=== PATIENT | male | born 1965 | race Caucasian/White ===

== ENCOUNTER 2017-09-15 19:34 | Inpatient (IN) | payer OTHER ==
[~2017-09-15] VITALS: Ht 177.8 cm; Wt 68.9 kg
--- NOTE | 2017-09-15 19:37 | NUR ---
PT BBRA WITH C/C OF LOW SPO2 OF 88%. AAOX0. GCS SCORE OF 11. PT GOWNED AND PLACED ON MONITOR AND POX. RESP EVEN. PT TRACHED AND ON 5L O2. NO S/S OF ACUTE DISTRESS NOTED. NO SKIN BREAKDOWNS NOTED. NO OBVIOUS CRACKLES AUSCULATED. PT SPO2 100%. SKIN DAMP AND WARM TO TOUCH. AWAITING MD FOR EVAL.
--- NOTE | 2017-09-15 19:50 | NUR ---
EMT BEDSIDE FOR EKG
--- NOTE | 2017-09-15 19:50 | NUR ---
TUMBLER DYEING MACHINE OPERATOR BEDSIDE FOR BLOOD SPECIMEN COLLECTION.
[2017-09-15 19:59] LABS: BASOPHILS % (AUTO) 0.1 % (0.0-2.0); EOSINOPHILS # (AUTO) 0.1 /CMM (0.0-0.7); EOSINOPHILS % (AUTO) 0.4 % (0.0-6.0); HEMATOCRIT 32 % (33-45); HEMOGLOBIN 10.8 g/dL (11.5-14.8); LYMPHOCYTES # (AUTO) 1.5 /CMM (0.8-4.8); LYMPHOCYTES % (AUTO) 8.7 % (20.0-44.0); MEAN CORPUSCULAR HEMOGLOBIN 31 PG (26.0-33.0); MEAN CORPUSCULAR HGB CONC 33 g/dl (31.0-36.0); MEAN CORPUSCULAR VOLUME 93 fL (82-100); MONOCYTES # (AUTO) 0.6 /CMM (0.1-1.30); MONOCYTES % (AUTO) 3.3 % (2.0-12.0); NEUTROPHILS # (AUTO) 15.1 /CMM (1.8-8.9); NEUTROPHILS % (AUTO) 87.5 % (43.0-81.0); PLATELET COUNT (AUTO) 463 /CMM (150-450); RDW COEFFICIENT OF VARIATION 14.4 (11.5-15.0); RED BLOOD CELL COUNT(AUTO) 3.46 MIL/uL (4.0-5.2); WHITE BLOOD COUNT (AUTO) 17.3 K/uL (4.3-11.0)
[2017-09-15 20:22] LABS: ALBUMIN 1.6 g/dL (3.4-5.0); BILIRUBIN,DIRECT 0.2 mg/dL (0.0-0.2); BILIRUBIN,TOTAL 0.4 mg/dL (0.2-1.0); CALCIUM, SERUM 8.3 mg/dL (8.5-10.1); POTASSIUM 4.5 mmol/L (3.5-5.1); TOTAL PROTEIN, SERUM 7.6 g/dL (6.4-8.2)
[2017-09-15 20:24] LABS: TROPONIN I 0.162 ng/mL (0.00-0.056)
[2017-09-15 20:37] LABS: INR 0.97 (0.85-1.15)
[2017-09-15 20:39] LABS: APPEARANCE,URINE Cloudy (CLEAR); BILIRUBIN,URINE Negative (NEGATIVE); BLOOD, URINE Moderate Ery/uL (NEGATIVE); COLOR,URINE Yellow (YELLOW); KETONES,URINE Negative (NEGATIVE); LEUKOCYTE ESTERASE ,URINE Large (NEGATIVE); NITRITE, URINE Positive (NEGATIVE); PH,URINE 8.5 (5.0-8.0); PROTEIN,URINE 100 mg/dl (NEGATIVE); UGLUCOSE Negative (NEGATIVE); UROBILINOGEN,URINE 0.2 EU/dL (0.2)
[2017-09-15 20:50] LABS: RBC,URINE TOO NUMEROUS TO COUN /HPF (0-2)
[2017-09-15 20:51] LABS: BACTERIA,URINE Many /HPF (None Seen); SQUAMOUS EPITHELIAL CELL,UR Rare /HPF (None Seen); URINE AMORPHOUS URATE Moderate /HPF (None Seen); WBC,URINE TOO NUMEROUS TO COUN /HPF (0-3)
--- NOTE | 2017-09-15 21:00 | NUR ---
Patient is resting comfortably in bed with eyes closed. Easily aroused. VSS
[2017-09-15] MEDS ORDERED: PIPERACILLIN /TAZOBACTAM 2.25 G in IV D5W 50 ML IV ONE (21:30)
[2017-09-15] MEDS ORDERED: ASPIRIN 81 MG TAB.CHEW NG ONE (21:30)
[2017-09-15] MEDS ORDERED: IV NS 0.9% 1,000 ML BAG IV ONE (21:30)
[2017-09-15] MEDS ORDERED: PIPERACILLIN /TAZOBACTAM 2.25 G VIAL IV ONE (21:41)
--- NOTE | 2017-09-15 22:10 | NUR ---
Patient is resting comfortably in bed with eyes closed. Easily aroused. VSS
[2017-09-15] MEDS ORDERED: GABA-532 GT (22:59)
[2017-09-15] MEDS ORDERED: ESCI10TA GT (22:59)
[2017-09-15] MEDS ORDERED: CLON1PAT12 TD (22:59)
[2017-09-15] MEDS ORDERED: MULT-594 GT (22:59)
[2017-09-15] MEDS ORDERED: LABE100T GT (22:59)
[2017-09-15] MEDS ORDERED: DOCU100C36 GT (22:59)
[2017-09-15] MEDS ORDERED: ATOR80TA GT (22:59)
[2017-09-15] MEDS ORDERED: BROM5CAP3 GT (22:59)
[2017-09-15] MEDS ORDERED: LISI10TA5 GT (22:59)
[2017-09-15] MEDS ORDERED: ASCO250T7 GT (22:59)
[2017-09-15] MEDS ORDERED: AMLO10TA2 PO (22:59)
[2017-09-15] MEDS ORDERED: PANT40TA4 GT (22:59)
[2017-09-15] MEDS ORDERED: CLON0.1T GT (22:59)
--- NOTE | 2017-09-15 23:00 | NUR ---
RN NOTE RECEIVED REPORT FROM BROOKE RN FOR CONTINUITY OF CARE.
--- NOTE | 2017-09-15 23:25 | NUR ---
GAVE REPORT TO EDELMIRA ELIE HERRERA FOR OSMANY.
--- NOTE | 2017-09-15 23:30 | NUR ---
PT TRANSFERRED PER ACLS PROTOCOL WITH LASHANDA.
--- NOTE | 2017-09-15 23:40 | NUR ---
RN NOTE RECEVIED PT IN NO ACUTE DISTRESS IN BED. PT IS NON VERBAL, BUT OPENS EYES. PT IS ON O2 VIA TRACH @ 5LPM COOL AEROSOL. PT IS NOT SHOWING ANY S/S OF SOB, DIFFICULTY BREATHING OR PAIN AT THIS TIME. PT IS ON TELE WITH SR ON THE MONITOR. PT HAS GTUBE THAT IS CLEAN DRY INTACT AND PATENT WITH FREE WATER FLUSH. PT HAS F/C THAT IS CLEAN DRY INTACT AND PATENT WITH CLEAR YELLOW URINE DRAINING. PT HAS LAC 18G THAT IS CLEAN DRY INTACT AND PATENT WITH NS FLUSH. ALL NEEDS MET, ALL ORDERS CARRIED OUT. WILL CONTINUE TO MONITOR PT.
[2017-09-16] VITALS (7 sets, daily range): BP systolic 92–112; BP diastolic 49–67
[2017-09-16] MEDS ORDERED: MORPHINE SULFATE INJ 2 MG/ML DISP.SYRIN IV PRN
[2017-09-16] MEDS ORDERED: ACETAMINOPHEN 650 MG/20 ML UDC- FOR SA PATIENTS ONLY GT PRN
--- NOTE | 2017-09-16 00:35 | NUR ---
PLACED PT ON CA 28% 5L, NO RESPIRATORY DISTRESS AT THIS TIME. ELIE HERRERA NOTIFIED
--- NOTE | 2017-09-16 00:44 | NUR ---
SPOKE TO MD MARTINEZ, AWARE OF NA LEVEL 155, WITH ORDER TO CONTINUE IVF NS @ 100ml/hr.
[2017-09-16] MEDS ORDERED: HEPA100I3 IV/SQ (00:54)
[2017-09-16] MEDS ORDERED: IV NS 0.9% 1,000 ML IV PRN (01:00)
[2017-09-16] MEDS ORDERED: RENAL NOVASOURCE 1,000 ML BOTTLE GT PRN (01:30)
[2017-09-16] MEDS ORDERED: VANCOMYCIN 1 GM in IV D5W 250 ML IV ONE (02:30)
[2017-09-16] MEDS ORDERED: VANCOMYCIN 1 GM VIAL ONE (03:07)
[2017-09-16] MEDS ORDERED: PIPERACILLIN /TAZOBACTAM 2.25 G VIAL IV ONE (05:04)
[2017-09-16] MEDS: GABAPENTIN 100 MG CAPSULE GT SCH ×3 (05:20→21:33)
[2017-09-16] MEDS: PIPERACILLIN /TAZOBACTAM 2.25 G in IV D5W 50 ML IV SCH ×6 (05:20→23:01)
--- NOTE | 2017-09-16 07:00 | NUR ---
OPENING RECEIVE PT ON BED, NONVERBAL , EYES ARE OPEN, TRACH DEPENDENT, TRACH CARE DONE, ON 28% FIO2 , RESPIRATION EVEN AND UNLABORED, ON TELE SR HR IN 60'S , KING DRAINING TO GRAVITY, WITH YELLOW URINE , NS AT 100CC/HR RUNNING VIA L AC G 18 , SITE CDI, TUBE FEEDING NOVASOURCE AT 50CC/HR RUNNING VIA G-TUBE, TOLERATING WELL, SR UP X3, CALL LIGHTS WITHIN EASY REACH, BED LOCKED AND IN LOWEST POSITION , WILL CONTINUE TO MONITOR .
[2017-09-16 07:14] LABS: BASOPHILS % (AUTO) 0.2 % (0.0-2.0); EOSINOPHILS # (AUTO) 0.1 /CMM (0.0-0.7); EOSINOPHILS % (AUTO) 0.3 % (0.0-6.0); HEMATOCRIT 24 % (39-51); HEMOGLOBIN 8.2 g/dL (13.5-17.5); LYMPHOCYTES # (AUTO) 2.1 /CMM (0.8-4.8); LYMPHOCYTES % (AUTO) 11.1 % (20.0-44.0); MEAN CORPUSCULAR HEMOGLOBIN 32 PG (26.0-33.0); MEAN CORPUSCULAR HGB CONC 34 g/dl (31.0-36.0); MEAN CORPUSCULAR VOLUME 95 fL (80-96); MONOCYTES # (AUTO) 0.5 /CMM (0.1-1.30); MONOCYTES % (AUTO) 2.7 % (2.0-12.0); NEUTROPHILS # (AUTO) 16.2 /CMM (1.8-8.9); NEUTROPHILS % (AUTO) 85.7 % (43.0-81.0); PLATELET COUNT (AUTO) 352 /CMM (150-450); RDW COEFFICIENT OF VARIATION 15.3 (11.5-15.0); RED BLOOD CELL COUNT(AUTO) 2.55 MIL/uL (4.5-6.0)
[2017-09-16 07:20] LABS: BILIRUBIN,TOTAL 0.7 mg/dL (0.2-1.0); CALCIUM, SERUM 8.4 mg/dL (8.5-10.1); CREATININE 1.9 mg/dL (0.6-1.3); MAGNESIUM 2.8 mg/dL (1.8-2.4); PHOSPHORUS 3.8 mg/dL (2.5-4.9); POTASSIUM 4.4 mmol/L (3.5-5.1); TOTAL PROTEIN, SERUM 6.5 g/dL (6.4-8.2)
--- NOTE | 2017-09-16 07:21 | NUR ---
PT REMAINS IN NO ACUTE DISTRESS IN BED. PT DID NOT HAVE ANY SIGNIFICANT CHANGE IN CONDITION DURING SHIFT. ALL NEEDS MET, ALL ORDERS CARRIED OUT. WILL ENDORSE CARE TO AM RN FOR CONTINUITY OF CARE.
[2017-09-16 07:23] LABS: TROPONIN I 0.111 ng/mL (0.00-0.056)
[2017-09-16 07:28] LABS: ALBUMIN 1.4 g/dL (3.4-5.0); THYROID STIMULATING HORMONE 0.935 uIU/mL (0.358-3.74)
[2017-09-16] MEDS: ESCITALOPRAM OXALATE (10 MG) 10 MG TABLET GT SCH (08:15)
[2017-09-16] MEDS: BROMOCRIPTINE MESYLATE (2.5MG) 2.5 MG TABLET GT SCH ×2 (08:15→16:59)
[2017-09-16] MEDS: ASCORBIC ACID 500 MG TABLET GT SCH ×2 (08:16→16:59)
[2017-09-16] MEDS: PANTOPRAZOLE 40 MG/PACK PACK GT SCH (08:17)
[2017-09-16] MEDS: MULTIVITAMINS,THERAGRAN 1 UDTAB TABLET GT SCH (08:17)
[2017-09-16] MEDS: DOCUSATE SODIUM 100 MG CAPSULE PO SCH ×2 (08:18→16:58)
[2017-09-16] MEDS ORDERED: FEE PK DOSING 1 MIN EA MC ONE (08:37)
--- NOTE | 2017-09-16 09:30 | NUR ---
RN NOTES DR VIVEROS NOTIFIED REGARDING NA= [id number]
[2017-09-16] MEDS ORDERED: IV D5/0.45 NACL 1,000 ML IV ONE (11:30)
[2017-09-16] MEDS: ALBUMIN 25% 25 GM in PREMIX 1 EA IV SCH ×2 (13:07→22:36)
[2017-09-16 13:17] LABS: CALCIUM, SERUM 8.1 mg/dL (8.5-10.1); CREATININE 1.8 mg/dL (0.6-1.3); POTASSIUM 4.3 mmol/L (3.5-5.1)
--- NOTE | 2017-09-16 13:20 | NUR ---
RN NOTES DR CONTRERAS NOTIFIED REGARDING EH=[id number] AND BUN=[id number]
[2017-09-16] MEDS: VANCOMYCIN 0.75 GM in IV D5W 250 ML IV SCH (14:30)
[2017-09-16 14:34] LABS: CREATININE, URINE 57.9 MG/DL (30.0-125.0); URINE TOTAL PROTEIN 83.8 mg/dL (0-11.9)
[2017-09-16 15:00] LABS: APPEARANCE,URINE SL CLOUDY (CLEAR); BILIRUBIN,URINE NEGATIVE (NEGATIVE); BLOOD, URINE 2+ Ery/uL (NEGATIVE); COLOR,URINE YELLOW (YELLOW); KETONES,URINE NEGATIVE (NEGATIVE); LEUKOCYTE ESTERASE ,URINE 3+ (NEGATIVE); NITRITE, URINE NEGATIVE (NEGATIVE); PROTEIN,URINE 1+ mg/dl (NEGATIVE); UGLUCOSE NEGATIVE (NEGATIVE); UROBILINOGEN,URINE 0.2 EU/dL (0.2)
[2017-09-16 15:14] LABS: BACTERIA,URINE Few /HPF (None Seen); SQUAMOUS EPITHELIAL CELL,UR Rare /HPF (None Seen)
--- NOTE | 2017-09-16 15:35 | NUR ---
RN NOTES DR CONTRERAS NOTIFIED REGARDING SERUM OSMO 358 AND URINE OSMO 554 .
[2017-09-16 15:50] LABS: EOSINOPHIL,URINE None Seen
--- NOTE | 2017-09-16 16:45 | NUR ---
patient is trach and G-tube dependent. Spoke with Miryam- admin @ [facility] confirmed patient resides at the [facility] [phone]. He is non-verbal,dependent with adl's. Plan is to return to the [facility] upon discharge. Addendum: 09/16/17 at 1646 by BEATA ARTEAGA RN Amended: Links added.
--- NOTE | 2017-09-16 18:00 | NUR ---
CLOSING NOTE PT REMAIN IN BED ON TRACH COLLAR AT 28 % ,RESPIRATION EVEN NO DISTRESS. PT ON FEEDINGS NOVASOURCE NO RESIDUAL AT 55 MLS. LAC 18 G INFUSING D5 1/2 NS AT 50 MLS SITE INTACT CLEAN AND DRY. WILL ENDORSE CONTINUITY OF CARE TO NEXT SHIFT NURSE
[2017-09-16] MEDS: ATORVASTATIN 40 MG TABLET GT SCH (21:33)
[2017-09-17] VITALS (8 sets, daily range): BP systolic 97–144; BP diastolic 56–77
[2017-09-17] MEDS: VANCOMYCIN 0.75 GM in IV D5W 250 ML IV SCH (02:52)
[2017-09-17] MEDS: RENAL NOVASOURCE 1,000 ML BOTTLE GT PRN (04:03)
[2017-09-17] MEDS: GABAPENTIN 100 MG CAPSULE GT SCH ×3 (04:04→21:53)
[2017-09-17] MEDS: PIPERACILLIN /TAZOBACTAM 2.25 G in IV D5W 50 ML IV SCH (05:02)
[2017-09-17 07:18] LABS: BASOPHILS % (AUTO) 0.2 % (0.0-2.0); EOSINOPHILS # (AUTO) 0.2 /CMM (0.0-0.7); EOSINOPHILS % (AUTO) 1.5 % (0.0-6.0); HEMATOCRIT 23 % (39-51); HEMOGLOBIN 7.9 g/dL (13.5-17.5); LYMPHOCYTES # (AUTO) 1.2 /CMM (0.8-4.8); LYMPHOCYTES % (AUTO) 10.6 % (20.0-44.0); MEAN CORPUSCULAR HEMOGLOBIN 32 PG (26.0-33.0); MEAN CORPUSCULAR HGB CONC 34 g/dl (31.0-36.0); MEAN CORPUSCULAR VOLUME 95 fL (80-96); MONOCYTES # (AUTO) 0.3 /CMM (0.1-1.30); MONOCYTES % (AUTO) 2.4 % (2.0-12.0); NEUTROPHILS % (AUTO) 85.3 % (43.0-81.0); PLATELET COUNT (AUTO) 292 /CMM (150-450); RDW COEFFICIENT OF VARIATION 14.9 (11.5-15.0); RED BLOOD CELL COUNT(AUTO) 2.47 MIL/uL (4.5-6.0); WHITE BLOOD COUNT (AUTO) 11.8 K/uL (4.3-11.0)
[2017-09-17 08:39] LABS: ALBUMIN 1.8 g/dL (3.4-5.0); BILIRUBIN,TOTAL 0.4 mg/dL (0.2-1.0); CALCIUM, SERUM 8.3 mg/dL (8.5-10.1); CREATININE 1.6 mg/dL (0.6-1.3); MAGNESIUM 2.6 mg/dL (1.8-2.4); PHOSPHORUS 2.7 mg/dL (2.5-4.9); TOTAL PROTEIN, SERUM 6.1 g/dL (6.4-8.2)
[2017-09-17] MEDS: PANTOPRAZOLE 40 MG/PACK PACK GT SCH (09:30)
[2017-09-17] MEDS: MULTIVITAMINS,THERAGRAN 1 UDTAB TABLET GT SCH (09:30)
[2017-09-17] MEDS: DOCUSATE SODIUM 100 MG CAPSULE PO SCH ×2 (09:30→17:41)
[2017-09-17] MEDS: ASCORBIC ACID 500 MG TABLET GT SCH ×2 (09:31→17:41)
[2017-09-17] MEDS: ESCITALOPRAM OXALATE (10 MG) 10 MG TABLET GT SCH (09:31)
[2017-09-17] MEDS: BROMOCRIPTINE MESYLATE (2.5MG) 2.5 MG TABLET GT SCH ×2 (09:31→17:40)
[2017-09-17] MEDS: CADEXOMER IODINE 40 GM TUBE TP SCH (09:32)
[2017-09-17 10:11] LABS: CREATINE KINASE MB 3.6 ng/mL (0-3.6)
[2017-09-17] MEDS: ACETAMINOPHEN 650 MG/20.3 ML UDC GT PRN (12:26)
[2017-09-17] MEDS: MEROPENEM 1 G in IV NS 0.9% 100 ML IV SCH (14:12)
[2017-09-17] MEDS ORDERED: IV D5W 1,000 ML IV STA (16:30)
[2017-09-17 17:37] LABS: CALCIUM, SERUM 8.1 mg/dL (8.5-10.1); CREATININE 1.6 mg/dL (0.6-1.3); POTASSIUM 3.8 mmol/L (3.5-5.1)
[2017-09-17] MEDS ORDERED: Z GUARD REMEDY 2 OZ OINT TP PRN (18:30)
--- NOTE | 2017-09-17 19:30 | NUR ---
ROTARY DRILL OPERATOR HELPER INITIAL NOTE PT RECEIVED ASLEEP BUT EASILY AROUSABLE TO NAME. OPENS EYES AND TRACKS. TRACH IN PLACE AND CLEAN. ON COOL AEROSOL WITH FIO2 AT 28% AND TOLERATING WELL. NO DISTRESS NOTED. TELE- SR 75. GTUBE FEEDING WITHOUT RESIDUALS NOTED. HOB ELEVATED AND ON ASPIRATION PRECAUTIONS. IV LAC CLEAN, DRY, PATENT WITH FLUIDS INFUSING. KING CATHETER IN PLACE AND DRAINING BY GRAVITY. WILL CONTINUE TO MONITOR.
[2017-09-17] MEDS: ATORVASTATIN 40 MG TABLET GT SCH (21:52)
[2017-09-18] VITALS: BP 137/85
[2017-09-18] MEDS: MEROPENEM 1 G in IV NS 0.9% 100 ML IV SCH ×3 (00:22→21:33)
[2017-09-18] MEDS: RENAL NOVASOURCE 1,000 ML BOTTLE GT PRN (01:11)
[2017-09-18 01:36] LABS: CALCIUM, SERUM 8.2 mg/dL (8.5-10.1); CREATININE 1.3 mg/dL (0.6-1.3)
[2017-09-18 04:00] VITALS: BP 130/78
[2017-09-18] MEDS: GABAPENTIN 100 MG CAPSULE GT SCH ×3 (04:40→21:30)
[2017-09-18 06:29] LABS: CREATININE 1.2 mg/dL (0.6-1.3)
--- NOTE | 2017-09-18 07:05 | NUR ---
WOUND CARE CONSULT WOUND CARE RECEIVED CONSULT FOR MULTIPLE WOUND AND SACRAL WOUND TREATMENT. WOUND CARE WILL DEFER CONSULT AND ALL TREATMENT PLANS TO SURGICAL TEAM AT THIS TIME. PATIENT WITH CURRENT LEVI AT 10, ALL PRESSURE ULCER PREVENTION MEASURES NOTED TO BE IN PLACE.
[2017-09-18] MEDS: PANTOPRAZOLE 40 MG/PACK PACK GT SCH (07:30)
[2017-09-18] MEDS ORDERED: HYDROGEL DRESSING 90 GM TUBE TP PRN (07:30)
--- NOTE | 2017-09-18 07:40 | NUR ---
ADMINISTRATIVE PROCESSOR CLOSING NOTE PT REMAINED STABLE DURING SHIFT. NO ACUTE DISTRESS NOTED. SEEN BY WOUND WITH NEW ORDERS TO OBTAIN CONSENT FOR EXCISIONAL SACRAL DEBRIDEMENT AND TREATMENT ORDERS. LAB CALLED WITH CRITICAL LAB SODIUM 161. ALL NEEDS ATTENDED TO PROMPTLY. KEPT CLEAN AND DRY. REPOSITIONED Q2H. HOB REMAINED ELEVATED. ISOLATION PRECAUTIONS OBSERVED. WILL ENDORSE TO NEXT SHIFT FOR CONTINUITY OF CARE.
--- NOTE | 2017-09-18 07:49 | NUR ---
RN NOTES RECEIVED PT IN STABLE CONDITION, TRACH, ON COOL AEROSOL, NO SOB OR DISTRESS NOTED. OPENS EYES ABLE TO TRACK. SR ON THE TELE RAFFY HR 88. GTF AT 50ML/HR. LAC 18G, LHAND 22G IV SITE INTACT WITH IVF AT 50ML/HR. BED LOCKED AND IN LOWEST POSITION, CALL LIGHT WITHIN REACH, WILL CONT TO RAFFY.
[2017-09-18 08:00] VITALS: BP 138/80
[2017-09-18] MEDS: DOCUSATE SODIUM 100 MG CAPSULE PO SCH ×2 (09:14→17:00)
[2017-09-18] MEDS: MULTIVITAMINS,THERAGRAN 1 UDTAB TABLET GT SCH (09:14)
[2017-09-18] MEDS: BROMOCRIPTINE MESYLATE (2.5MG) 2.5 MG TABLET GT SCH ×2 (09:14→17:00)
[2017-09-18] MEDS: ESCITALOPRAM OXALATE (10 MG) 10 MG TABLET GT SCH (09:14)
[2017-09-18] MEDS: ASCORBIC ACID 500 MG TABLET GT SCH ×2 (09:14→17:00)
[2017-09-18] MEDS: CADEXOMER IODINE 40 GM TUBE TP SCH (09:15)
[2017-09-18] MEDS: HYDROGEL DRESSING 90 GM TUBE TP SCH (09:15)
[2017-09-18] MEDS: DAKINS QUARTER STRENGTH (0.125%) 480 ML BOTTLE TOP SCH (09:15)
[2017-09-18 12:00] VITALS: BP 138/91
[2017-09-18 16:00] VITALS: BP 134/91
[2017-09-18 17:34] LABS: CALCIUM, SERUM 8.5 mg/dL (8.5-10.1); CREATININE 1.2 mg/dL (0.6-1.3); POTASSIUM 4.3 mmol/L (3.5-5.1)
--- NOTE | 2017-09-18 19:56 | NUR ---
PARTITION MAKING MACHINE OPERATOR INITIAL NOTES RECEIVED PT IN STABLE CONDITION, TRACH, ON COOL AEROSOL, NO SOB OR DISTRESS NOTED. OPENS EYES ABLE TO TRACK. SR ON THE TELE RAFFY HR 80. GTF AT 50ML/HR. LAC 18G, LHAND 22G IV SITE INTACT WITH IVF AT 50ML/HR. BED LOCKED AND IN LOWEST POSITION, CALL LIGHT WITHIN REACH, WILL CONT TO RAFFY.
[2017-09-18 20:00] VITALS: BP 144/78
[2017-09-18] MEDS: ATORVASTATIN 40 MG TABLET GT SCH (21:30)
[2017-09-19] VITALS: BP 129/76
[2017-09-19] MEDS: RENAL NOVASOURCE 1,000 ML BOTTLE GT PRN ×2 (00:31→16:23)
[2017-09-19 04:00] VITALS: BP 146/90
[2017-09-19] MEDS: GABAPENTIN 100 MG CAPSULE GT SCH ×3 (04:58→21:35)
[2017-09-19] MEDS: MEROPENEM 1 G in IV NS 0.9% 100 ML IV SCH ×3 (04:58→21:36)
[2017-09-19 05:15] LABS: *SPE A/G RATIO 0.6 (0.7-1.7); *SPE ALBUMIN 2.1 g/dL (2.9-4.4); *SPE ALPHA-1-GLOBULIN 0.2 g/dL (0.0-0.4); *SPE ALPHA-2-GLOBULIN 1.2 g/dL (0.4-1.0); *SPE GLOBULIN, TOTAL 3.6 g/dL (2.2-3.9); *SPE M-SPIKE Not Observed g/dL (Not Observed); *SPEGAMMA GLOBULIN 1.2 g/dL (0.4-1.8)
--- NOTE | 2017-09-19 06:51 | NUR ---
DOMESTIC MAID CLOSING NOTES ENDORSED PT IN STABLE CONDITION, TRACH, ON COOL AEROSOL, NO SOB OR DISTRESS NOTED. OPENS EYES ABLE TO TRACK. SR ON THE TELE RAFFY HR 90. GTF AT 50ML/HR. LAC 18G, LHAND 22G IV SITE INTACT WITH IVF AT 50ML/HR. BED LOCKED AND IN LOWEST POSITION, CALL LIGHT WITHIN REACH, WILL CONT TO RAFFY.
[2017-09-19 07:39] LABS: EOSINOPHILS # (AUTO) 0.1 /CMM (0.0-0.7); HEMATOCRIT 29 % (39-51); HEMOGLOBIN 9.9 g/dL (13.5-17.5); LYMPHOCYTES # (AUTO) 1.3 /CMM (0.8-4.8); LYMPHOCYTES % (AUTO) 10.6 % (20.0-44.0); MEAN CORPUSCULAR HEMOGLOBIN 32 PG (26.0-33.0); MEAN CORPUSCULAR HGB CONC 34 g/dl (31.0-36.0); MEAN CORPUSCULAR VOLUME 95 fL (80-96); MONOCYTES # (AUTO) 0.3 /CMM (0.1-1.30); MONOCYTES % (AUTO) 2.6 % (2.0-12.0); NEUTROPHILS # (AUTO) 10.5 /CMM (1.8-8.9); NEUTROPHILS % (AUTO) 85.8 % (43.0-81.0); PLATELET COUNT (AUTO) 332 /CMM (150-450); RDW COEFFICIENT OF VARIATION 15.1 (11.5-15.0); RED BLOOD CELL COUNT(AUTO) 3.08 MIL/uL (4.5-6.0); WHITE BLOOD COUNT (AUTO) 12.2 K/uL (4.3-11.0)
[2017-09-19 07:54] LABS: CALCIUM, SERUM 8.5 mg/dL (8.5-10.1); CREATININE 1.2 mg/dL (0.6-1.3); MAGNESIUM 2.5 mg/dL (1.8-2.4); PHOSPHORUS 2.9 mg/dL (2.5-4.9); POTASSIUM 4.6 mmol/L (3.5-5.1)
[2017-09-19 08:00] VITALS: BP_SYST 108; BP_SYST 147; BP_DIAS 64; BP_DIAS 89
[2017-09-19] MEDS: DOCUSATE SODIUM 100 MG CAPSULE PO SCH ×2 (08:04→16:17)
[2017-09-19] MEDS: PANTOPRAZOLE 40 MG/PACK PACK GT SCH (08:04)
[2017-09-19] MEDS: BROMOCRIPTINE MESYLATE (2.5MG) 2.5 MG TABLET GT SCH ×2 (08:04→16:17)
[2017-09-19] MEDS: ACETAMINOPHEN 650 MG/20.3 ML UDC GT PRN (08:04)
[2017-09-19] MEDS: ASCORBIC ACID 500 MG TABLET GT SCH ×2 (08:04→16:16)
[2017-09-19] MEDS: ESCITALOPRAM OXALATE (10 MG) 10 MG TABLET GT SCH (08:04)
[2017-09-19] MEDS: MULTIVITAMINS,THERAGRAN 1 UDTAB TABLET GT SCH (08:04)
[2017-09-19] MEDS: HYDROGEL DRESSING 90 GM TUBE TP SCH (08:05)
[2017-09-19] MEDS: DAKINS QUARTER STRENGTH (0.125%) 480 ML BOTTLE TOP SCH (08:06)
[2017-09-19] MEDS: CADEXOMER IODINE 40 GM TUBE TP SCH (08:06)
[2017-09-19 12:00] VITALS: BP 130/74
[2017-09-19 14:23] LABS: PTH, INTACT 70 pg/mL (15-65)
[2017-09-19] MEDS: IV D5/0.45 NACL 1,000 ML IV PRN (15:05)
[2017-09-19 16:00] VITALS: BP 127/79
[2017-09-19 20:00] VITALS: BP 130/81
--- NOTE | 2017-09-19 20:05 | NUR ---
SUPPLY CHAIN PROJECT MANAGER INITIAL NOTES RECEIVED PT IN STABLE CONDITION, TRACH, ON COOL AEROSOL, NO SOB OR DISTRESS NOTED. OPENS EYES ABLE TO TRACK. SR ON THE TELE RAFFY HR 80. GTF AT 50ML/HR. LAC 18G, LHAND 22G IV SITE INTACT WITH IVF AT D5 1/2 NACL @ 100ML/HR. BED LOCKED AND IN LOWEST POSITION, CALL LIGHT WITHIN REACH, WILL CONT TO RAFFY.
[2017-09-19] MEDS: ATORVASTATIN 40 MG TABLET GT SCH (21:36)
[2017-09-20] VITALS: BP 109/45
[2017-09-20] MEDS: IV D5/0.45 NACL 1,000 ML IV PRN ×2 (01:37→19:40)
[2017-09-20 04:00] VITALS: BP 130/57
[2017-09-20] MEDS: MEROPENEM 1 G in IV NS 0.9% 100 ML IV SCH ×2 (04:45→14:32)
[2017-09-20] MEDS: GABAPENTIN 100 MG CAPSULE GT SCH ×3 (04:46→21:59)
--- NOTE | 2017-09-20 06:19 | NUR ---
PERFORMING ARTS TECHNICIANS CLOSING NOTES ENDORSED PT IN STABLE CONDITION, TRACH, ON COOL AEROSOL, NO SOB OR DISTRESS NOTED. OPENS EYES ABLE TO TRACK. SR ON THE TELE RAFFY HR 97. GTF AT 50ML/HR. LAC 18G, LHAND 22G IV SITE INTACT WITH IVF AT D5 1/2 NACL @ 100ML/HR. BED LOCKED AND IN LOWEST POSITION, CALL LIGHT WITHIN REACH, WILL CONT TO RAFFY.
[2017-09-20 07:17] LABS: BASOPHILS % (AUTO) 0.1 % (0.0-2.0); EOSINOPHILS # (AUTO) 0.2 /CMM (0.0-0.7); EOSINOPHILS % (AUTO) 1.3 % (0.0-6.0); HEMATOCRIT 27 % (39-51); HEMOGLOBIN 9.1 g/dL (13.5-17.5); LYMPHOCYTES # (AUTO) 1.3 /CMM (0.8-4.8); LYMPHOCYTES % (AUTO) 10.1 % (20.0-44.0); MEAN CORPUSCULAR HEMOGLOBIN 32 PG (26.0-33.0); MEAN CORPUSCULAR HGB CONC 33 g/dl (31.0-36.0); MEAN CORPUSCULAR VOLUME 95 fL (80-96); MONOCYTES # (AUTO) 0.3 /CMM (0.1-1.30); MONOCYTES % (AUTO) 2.1 % (2.0-12.0); NEUTROPHILS # (AUTO) 10.9 /CMM (1.8-8.9); NEUTROPHILS % (AUTO) 86.4 % (43.0-81.0); PLATELET COUNT (AUTO) 318 /CMM (150-450); RED BLOOD CELL COUNT(AUTO) 2.87 MIL/uL (4.5-6.0); WHITE BLOOD COUNT (AUTO) 12.7 K/uL (4.3-11.0)
--- NOTE | 2017-09-20 07:30 | NUR ---
MONITORING ANALYST INITIAL NOTES RECEIVED PT IN STABLE CONDITION, TRACH, ON COOL AEROSOL, NO SOB OR DISTRESS NOTED. OPENS EYES ABLE TO TRACK. SR ON THE TELE RAFFY HR 80. GTF AT 50ML/HR. LAC 18G, LHAND 22G IV SITE INTACT WITH IVF AT D5 1/2 NACL @ 100ML/HR. BED LOCKED AND IN LOWEST POSITION, CALL LIGHT WITHIN REACH, WILL CONT TO RAFFY.
[2017-09-20 07:48] LABS: CALCIUM, SERUM 8.2 mg/dL (8.5-10.1); CREATININE 1.1 mg/dL (0.6-1.3); MAGNESIUM 2.2 mg/dL (1.8-2.4); PHOSPHORUS 2.7 mg/dL (2.5-4.9)
[2017-09-20 07:58] LABS: POTASSIUM 4.3 mmol/L (3.5-5.1)
[2017-09-20 08:00] VITALS: BP_SYST 113; BP_SYST 131; BP_DIAS 74; BP_DIAS 86
[2017-09-20] MEDS: MULTIVITAMINS,THERAGRAN 1 UDTAB TABLET GT SCH (08:59)
[2017-09-20] MEDS: ASCORBIC ACID 500 MG TABLET GT SCH ×2 (08:59→17:43)
[2017-09-20] MEDS: ESCITALOPRAM OXALATE (10 MG) 10 MG TABLET GT SCH (08:59)
[2017-09-20] MEDS: PANTOPRAZOLE 40 MG/PACK PACK GT SCH (08:59)
[2017-09-20] MEDS: DAKINS QUARTER STRENGTH (0.125%) 480 ML BOTTLE TOP SCH (09:00)
[2017-09-20] MEDS: CADEXOMER IODINE 40 GM TUBE TP SCH (09:00)
[2017-09-20] MEDS: DOCUSATE SODIUM 100 MG CAPSULE PO SCH ×2 (09:00→17:43)
[2017-09-20] MEDS: HYDROGEL DRESSING 90 GM TUBE TP SCH (09:00)
[2017-09-20] MEDS: BROMOCRIPTINE MESYLATE (2.5MG) 2.5 MG TABLET GT SCH ×2 (09:08→17:43)
[2017-09-20 12:00] VITALS: BP 109/72
[2017-09-20 16:00] VITALS: BP 131/86
[2017-09-20] MEDS: RENAL NOVASOURCE 1,000 ML BOTTLE GT PRN (19:35)
[2017-09-20 20:00] VITALS: BP 115/71
[2017-09-20] MEDS: ATORVASTATIN 40 MG TABLET GT SCH (21:59)
[2017-09-20] MEDS: ACETAMINOPHEN 650 MG/20.3 ML UDC GT PRN (21:59)
[2017-09-20] MEDS: CEFEPIME 2 GM in IV D5W 100 ML IV SCH (22:00)
[2017-09-21] VITALS: BP 110/63
[2017-09-21 04:00] VITALS: BP 125/82
[2017-09-21] MEDS: CEFEPIME 2 GM in IV D5W 100 ML IV SCH ×2 (05:27→12:35)
[2017-09-21] MEDS: ACETAMINOPHEN 650 MG/20.3 ML UDC GT PRN (05:28)
[2017-09-21] MEDS: GABAPENTIN 100 MG CAPSULE GT SCH ×3 (05:28→22:02)
--- NOTE | 2017-09-21 07:05 | NUR ---
RN INITIAL NOTE PATIENT RECEIVED IN BED, PATIENT IS OBTUNDED, NON-VERBAL . SINUS RHYTHM ON TELE MONITOR. PATIENT HAS TRACH, PORTEX#7. ON COOL AEROSOL: FI02-28%, SATING WELL. NO S/S OF RESPIRATORY DISTRESS OR SOB. KING CATHETER DRAINING TO GRAVITY. GTUBE FLUSHED, PATENT. PLACEMENT CONFIRMED. TOLERATING FEEDING WELL. SKIN IS WARM AND DRY TO TOUCH. IV SITE FLUSHED, PATENT. SAFETY PRECAUTIONS IMPLEMENTED, BED IN LOCKED, LOW POSITION WITH TWO SIDE RAILS UP. CALL LIGHT AND BELONGINGS WITHIN EASY REACH. WILL CONTINUE TO MONITOR.
[2017-09-21 07:13] LABS: BASOPHILS % (AUTO) 0.3 % (0.0-2.0); EOSINOPHILS # (AUTO) 0.1 /CMM (0.0-0.7); EOSINOPHILS % (AUTO) 1.3 % (0.0-6.0); HEMATOCRIT 28 % (39-51); HEMOGLOBIN 9.2 g/dL (13.5-17.5); LYMPHOCYTES # (AUTO) 1.3 /CMM (0.8-4.8); LYMPHOCYTES % (AUTO) 11.6 % (20.0-44.0); MEAN CORPUSCULAR HEMOGLOBIN 32 PG (26.0-33.0); MEAN CORPUSCULAR HGB CONC 33 g/dl (31.0-36.0); MEAN CORPUSCULAR VOLUME 96 fL (80-96); MONOCYTES # (AUTO) 0.3 /CMM (0.1-1.30); MONOCYTES % (AUTO) 2.4 % (2.0-12.0); NEUTROPHILS # (AUTO) 9.4 /CMM (1.8-8.9); NEUTROPHILS % (AUTO) 84.4 % (43.0-81.0); PLATELET COUNT (AUTO) 266 /CMM (150-450); RDW COEFFICIENT OF VARIATION 14.9 (11.5-15.0); RED BLOOD CELL COUNT(AUTO) 2.89 MIL/uL (4.5-6.0); WHITE BLOOD COUNT (AUTO) 11.1 K/uL (4.3-11.0)
[2017-09-21 07:28] LABS: CALCIUM, SERUM 8.2 mg/dL (8.5-10.1); CREATININE 1.3 mg/dL (0.6-1.3); MAGNESIUM 2.2 mg/dL (1.8-2.4); PHOSPHORUS 2.8 mg/dL (2.5-4.9); POTASSIUM 4.3 mmol/L (3.5-5.1)
[2017-09-21] MEDS: IV D5/0.45 NACL 1,000 ML IV PRN ×2 (07:55→18:57)
[2017-09-21] MEDS: PANTOPRAZOLE 40 MG/PACK PACK GT SCH (07:55)
[2017-09-21 08:00] VITALS: BP 131/78
[2017-09-21] MEDS: ASCORBIC ACID 500 MG TABLET GT SCH ×2 (08:58→17:26)
[2017-09-21] MEDS: DOCUSATE SODIUM 100 MG CAPSULE PO SCH (08:59)
[2017-09-21] MEDS: DAKINS QUARTER STRENGTH (0.125%) 480 ML BOTTLE TOP SCH (08:59)
[2017-09-21] MEDS: ESCITALOPRAM OXALATE (10 MG) 10 MG TABLET GT SCH (08:59)
[2017-09-21] MEDS: CADEXOMER IODINE 40 GM TUBE TP SCH (08:59)
[2017-09-21] MEDS: BROMOCRIPTINE MESYLATE (2.5MG) 2.5 MG TABLET GT SCH ×2 (08:59→17:26)
[2017-09-21] MEDS: HYDROGEL DRESSING 90 GM TUBE TP SCH (08:59)
[2017-09-21] MEDS: MULTIVITAMINS,THERAGRAN 1 UDTAB TABLET GT SCH (08:59)
[2017-09-21 12:00] VITALS: BP 102/64
--- NOTE | 2017-09-21 14:00 | NUR ---
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
[2017-09-21 16:00] VITALS: BP 97/66
[2017-09-21] MEDS: DOCUSATE SODIUM LIQ 100 MG/10 ML UDC NG SCH (17:26)
[2017-09-21 17:48] LABS: APPEARANCE,URINE CLEAR (CLEAR); BILIRUBIN,URINE NEGATIVE (NEGATIVE); BLOOD, URINE 2+ Ery/uL (NEGATIVE); COLOR,URINE YELLOW (YELLOW); KETONES,URINE NEGATIVE (NEGATIVE); LEUKOCYTE ESTERASE ,URINE NEGATIVE (NEGATIVE); NITRITE, URINE NEGATIVE (NEGATIVE); PH,URINE 5.5 (5.0-8.0); PROTEIN,URINE 2+ mg/dl (NEGATIVE); UGLUCOSE NEGATIVE (NEGATIVE); UROBILINOGEN,URINE 0.2 EU/dL (0.2)
[2017-09-21 17:49] LABS: BACTERIA,URINE 1+ /HPF (None Seen); SQUAMOUS EPITHELIAL CELL,UR Rare /HPF (None Seen)
[2017-09-21] MEDS: PIPERACILLIN /TAZOBACTAM 3.375 G in IV D5W 50 ML IV SCH (18:58)
--- NOTE | 2017-09-21 19:59 | NUR ---
RN NOTE RECEIVED PATIENT IN THE BED, OBTUNDED, T-PIECE, ON COOL AEROSOL FIO2 28%, PORTEX 7,M KING CATH IS DRAINING URINE AND INTACT, DRAUINING TO GRAVITY, NO RESPIRATORY DISTRESS NOTED, SUCTIONED X 2, WHITE THICK SECRETIONS, G-TUBE SITE IS INTACT, ONGOING NOVASOURCE AT 50 ML/HR, 0 RESIDUAL TOLERATES WELL, ALL SAFETY MEASURES TAKEN , BED IN THE LOWEST POSITION, CALL LIGHT WITHIN REACH, SIDE RAILS UP X 2, WILL CONTINUE TO MONITOR PATIENT
[2017-09-21 20:00] VITALS: BP 149/79
[2017-09-21] MEDS ORDERED: LINEZOLID 600 MG TABLET PO SCH (21:00)
[2017-09-21] MEDS: RENAL NOVASOURCE 1,000 ML BOTTLE GT PRN (22:01)
[2017-09-21] MEDS: ATORVASTATIN 40 MG TABLET GT SCH (22:02)
[2017-09-22] VITALS: BP 156/81
[2017-09-22] MEDS: PIPERACILLIN /TAZOBACTAM 3.375 G in IV D5W 50 ML IV SCH ×4 (00:29→17:51)
[2017-09-22 04:00] VITALS: BP 140/76
[2017-09-22] MEDS: GABAPENTIN 100 MG CAPSULE GT SCH ×3 (05:40→21:42)
[2017-09-22] MEDS: IV D5/0.45 NACL 1,000 ML IV PRN ×2 (05:48→21:59)
[2017-09-22 07:01] LABS: BASOPHILS % (AUTO) 0.3 % (0.0-2.0); EOSINOPHILS # (AUTO) 0.2 /CMM (0.0-0.7); EOSINOPHILS % (AUTO) 1.3 % (0.0-6.0); HEMATOCRIT 26 % (39-51); HEMOGLOBIN 8.8 g/dL (13.5-17.5); LYMPHOCYTES # (AUTO) 1.3 /CMM (0.8-4.8); LYMPHOCYTES % (AUTO) 10.9 % (20.0-44.0); MEAN CORPUSCULAR HEMOGLOBIN 32 PG (26.0-33.0); MEAN CORPUSCULAR HGB CONC 34 g/dl (31.0-36.0); MEAN CORPUSCULAR VOLUME 94 fL (80-96); MONOCYTES # (AUTO) 0.3 /CMM (0.1-1.30); MONOCYTES % (AUTO) 2.6 % (2.0-12.0); NEUTROPHILS # (AUTO) 9.7 /CMM (1.8-8.9); NEUTROPHILS % (AUTO) 84.9 % (43.0-81.0); PLATELET COUNT (AUTO) 257 /CMM (150-450); RDW COEFFICIENT OF VARIATION 14.5 (11.5-15.0); RED BLOOD CELL COUNT(AUTO) 2.76 MIL/uL (4.5-6.0); WHITE BLOOD COUNT (AUTO) 11.5 K/uL (4.3-11.0)
[2017-09-22 07:34] LABS: CREATININE 1.2 mg/dL (0.6-1.3); MAGNESIUM 2.1 mg/dL (1.8-2.4); PHOSPHORUS 2.7 mg/dL (2.5-4.9); POTASSIUM 3.6 mmol/L (3.5-5.1)
--- NOTE | 2017-09-22 07:34 | NUR ---
RN NOTE NO CHANGES DURING MY SHIFT, PATIENT SLEPT WELL DURING MY SHIFT, T-PIECE, COOL AEROSOL TOLERATED WELL, ONGOING IV FLUIDS, ALL SAFETY MEASURES TAKEN , CALL LIGHT WITHIN REACH, BED IN THE LOWEST POSITION, SIDE RAILS UP X 2, ENDORSED TO AM SHIFT FOR OSMANY
[2017-09-22 08:00] VITALS: BP_SYST 136; BP_SYST 91; BP_DIAS 69; BP_DIAS 77
--- NOTE | 2017-09-22 08:06 | NUR ---
SECURITY PROGRAM MANAGER NOTE: RECEIVED PATIENT IN BED, AWAKE W/ HIS EYES OPEN, NONVERBAL. NO FACIAL GRIMACING NOTED. HOB ELEVATED. ON GT FEEDING FOR NOVASOURCE RENAL @50CC/HR, TOLERATING WELL. NO RESIDUAL NOTED. AFEBRILE. ON COOL AEROSOL SATURATING WELL 95%. RESPIRATION IS EVEN AND UNLABORED. (R) HAND IV LINE NOTED INTACT W/ TRANSPARENT DRESSING. KING CATHETER NOTED DRAINING TO GRAVITY W/ YELLOW URINE. BED ALARM AND LOCKED AT ALL TIMES. CALL LIGHT WITHIN REACH.
[2017-09-22] MEDS: DOCUSATE SODIUM LIQ 100 MG/10 ML UDC NG SCH ×2 (09:33→17:51)
[2017-09-22] MEDS: PANTOPRAZOLE 40 MG VIAL IV SCH (09:33)
[2017-09-22] MEDS: ESCITALOPRAM OXALATE (10 MG) 10 MG TABLET GT SCH (09:33)
[2017-09-22] MEDS: BROMOCRIPTINE MESYLATE (2.5MG) 2.5 MG TABLET GT SCH ×2 (09:33→17:53)
[2017-09-22] MEDS: MULTIVITAMINS,THERAGRAN 1 UDTAB TABLET GT SCH (09:33)
[2017-09-22] MEDS: ASCORBIC ACID 500 MG TABLET GT SCH ×2 (09:33→17:51)
[2017-09-22] MEDS: CADEXOMER IODINE 40 GM TUBE TP SCH (09:35)
[2017-09-22] MEDS: DAKINS QUARTER STRENGTH (0.125%) 480 ML BOTTLE TOP SCH (09:35)
[2017-09-22] MEDS: HYDROGEL DRESSING 90 GM TUBE TP SCH (09:36)
[2017-09-22] MEDS ORDERED: HYDROMORPHONE INJ 0.5 MG/0.5 ML SYRINGE IV PRN (10:30)
[2017-09-22] MEDS: RENAL NOVASOURCE 1,000 ML BOTTLE GT PRN (11:55)
[2017-09-22 12:00] VITALS: BP 118/78
[2017-09-22 16:00] VITALS: BP 136/81
[2017-09-22 20:00] VITALS: BP 143/83
--- NOTE | 2017-09-22 20:11 | NUR ---
INCIDENT RESPONSE SPECIALIST NOTE: RECEIVED PATIENT IN BED, ASLEEP AT THIS TIME BUT OPEN HIS EYES WHEN CALLED, NONVERBAL. NO FACIAL GRIMACING NOTED. HOB ELEVATED. ON GT FEEDING FOR NOVASOURCE RENAL @50CC/HR, TOLERATING WELL. NO RESIDUAL NOTED. AFEBRILE. ON COOL AEROSOL SATURATING WELL 96%. RESPIRATION IS EVEN AND UNLABORED. (L) HAND IV LINE NOTED PATENT AND INTACT W/ TRANSPARENT DRESSING. KING CATHETER NOTED DRAINING TO GRAVITY W/ YELLOW URINE. BED ALARM AND LOCKED AT ALL TIMES. CALL LIGHT WITHIN REACH. REPORT GIVEN TO PM SHIFT NURSE FOR CONTINUITY OF CARE.
--- NOTE | 2017-09-22 20:20 | NUR ---
RN NOTE RECEIVED PATIENT IN THE BED, AWAKE, OBTUNDED, NO RESPIRATORY DISTRESS NOTED, ALL SAFETY MEASURES TAKEN, ONGOING IV FLUIDS, ONGOING G-TUBE FEEDING, 0 RESIDUAL, WILL CONTINUE TO MONITOR PATIENT
[2017-09-22] MEDS: ATORVASTATIN 40 MG TABLET GT SCH (21:42)
[2017-09-23] VITALS: BP 131/91
[2017-09-23] MEDS: PIPERACILLIN /TAZOBACTAM 3.375 G in IV D5W 50 ML IV SCH ×4 (00:54→18:17)
[2017-09-23 04:00] VITALS: BP 158/75
[2017-09-23] MEDS: GABAPENTIN 100 MG CAPSULE GT SCH (06:29)
[2017-09-23 06:46] LABS: BASOPHILS % (AUTO) 0.2 % (0.0-2.0); EOSINOPHILS # (AUTO) 0.1 /CMM (0.0-0.7); EOSINOPHILS % (AUTO) 1.2 % (0.0-6.0); HEMATOCRIT 27 % (39-51); HEMOGLOBIN 9.4 g/dL (13.5-17.5); LYMPHOCYTES # (AUTO) 1.2 /CMM (0.8-4.8); LYMPHOCYTES % (AUTO) 12.2 % (20.0-44.0); MEAN CORPUSCULAR HEMOGLOBIN 32 PG (26.0-33.0); MEAN CORPUSCULAR HGB CONC 34 g/dl (31.0-36.0); MEAN CORPUSCULAR VOLUME 94 fL (80-96); MONOCYTES # (AUTO) 0.3 /CMM (0.1-1.30); MONOCYTES % (AUTO) 3.3 % (2.0-12.0); NEUTROPHILS # (AUTO) 8.3 /CMM (1.8-8.9); NEUTROPHILS % (AUTO) 83.1 % (43.0-81.0); PLATELET COUNT (AUTO) 269 /CMM (150-450); RDW COEFFICIENT OF VARIATION 14.4 (11.5-15.0); RED BLOOD CELL COUNT(AUTO) 2.91 MIL/uL (4.5-6.0); WHITE BLOOD COUNT (AUTO) 9.9 K/uL (4.3-11.0)
[2017-09-23 07:04] LABS: BILIRUBIN,TOTAL 0.4 mg/dL (0.2-1.0); CALCIUM, SERUM 8.4 mg/dL (8.5-10.1); MAGNESIUM 2.2 mg/dL (1.8-2.4); PHOSPHORUS 3.2 mg/dL (2.5-4.9); POTASSIUM 3.9 mmol/L (3.5-5.1); TOTAL PROTEIN, SERUM 6.1 g/dL (6.4-8.2)
--- NOTE | 2017-09-23 07:10 | NUR ---
RN NOTE NO CHANGES DURING MY SHIFT, NO RESPIRATORY DISTRESS NOTED, G-TUBE FEEDING, 0 RESIDUAL, TOLERATED WELL, WOUND CARE PROVIDED, TURNED AND REPOSITIONED Q 2 HOURS, ALL SAFETY MEASURES TAKEN
[2017-09-23 07:23] LABS: ALBUMIN 1.3 g/dL (3.4-5.0)
--- NOTE | 2017-09-23 07:30 | NUR ---
RN OPENING/TELE NOTES RECEIVED PT. IN BED, PT. IS NON VERBAL, AND OBTUNDED. PT. HAS A SHILEY 6 TRACHEOSTOMY, BREATHING EVENLY, AND UNLABORED ON OXYGEN AT 5L/MIN WITH COOL AEROSOL. PT. HAS A G TUBE FEEDING NOVASOURCE RUNNING AT 50 ML/HR. IV FLUIDS RUNNING AT 100 ML/HR ON LEFT HAND. PT. HAS A KING CATHETER WITH CLEAR AND YELLOW URINE. BED IS IN LOWEST, AND LOCKED POSITION, 2 SIDE RAILS UP, AND CALL LIGHT WITHIN REACH. WILL CONTINUE TO ASSESS AND MONITOR.
[2017-09-23 08:00] VITALS: BP_SYST 151; BP_DIAS 92; BP_DIAS 96
--- NOTE | 2017-09-23 08:38 | NUR ---
RN NOTES REPORTED CRITICAL LAB, ALBUMIN 1.3 TO MD, NO NEW ORDERS GIVEN.
[2017-09-23] MEDS: IV D5/0.45 NACL 1,000 ML IV PRN (10:24)
[2017-09-23] MEDS: RENAL NOVASOURCE 1,000 ML BOTTLE GT PRN (10:26)
[2017-09-23] MEDS: ESCITALOPRAM OXALATE (10 MG) 10 MG TABLET GT SCH (10:27)
[2017-09-23] MEDS: PANTOPRAZOLE 40 MG VIAL IV SCH (10:27)
[2017-09-23] MEDS: DOCUSATE SODIUM LIQ 100 MG/10 ML UDC NG SCH ×2 (10:27→18:17)
[2017-09-23] MEDS: MULTIVITAMINS,THERAGRAN 1 UDTAB TABLET GT SCH (10:28)
[2017-09-23] MEDS: BROMOCRIPTINE MESYLATE (2.5MG) 2.5 MG TABLET GT SCH ×2 (10:28→18:18)
[2017-09-23] MEDS: DAKINS QUARTER STRENGTH (0.125%) 480 ML BOTTLE TOP SCH (10:29)
[2017-09-23] MEDS: HYDROGEL DRESSING 90 GM TUBE TP SCH (10:30)
[2017-09-23] MEDS: ASCORBIC ACID 500 MG TABLET GT SCH ×2 (10:43→18:18)
[2017-09-23] MEDS: ACETAMINOPHEN 650 MG/20.3 ML UDC GT PRN ×2 (11:10→18:19)
[2017-09-23] MEDS: CADEXOMER IODINE 40 GM TUBE TP SCH (11:17)
[2017-09-23 12:00] VITALS: BP 151/92
[2017-09-23] MEDS ORDERED: GABAPENTIN 100 MG CAPSULE GT SCH (13:00)
[2017-09-23] MEDS ORDERED: CEFE2FRO IV (13:53)
[2017-09-23] MEDS ORDERED: CADE40GE2 TP (13:53)
[2017-09-23] MEDS ORDERED: LINE600T2 GT (13:53)
[2017-09-23] MEDS ORDERED: [UNRECOGNIZED DRUG - CODE] GT (13:58)
[2017-09-23 16:00] VITALS: BP 158/99
[2017-09-23] MEDS ORDERED: hydrALAZINE HCL 50 MG TABLET PO ONE (18:30)
[2017-09-23 18:34] VITALS: BP 158/99
--- NOTE | 2017-09-23 19:51 | NUR ---
RN CLOSING/TELE NOTES PT. IS IN BED, PT. IS NON VERBAL, OPENS EYES SPONTANEOUSLY TO NAME, PT. IS OBTUNDED. PT. HAS A SHILEY 6 TRACHEOSTOMY, BREATHING EVENLY, AND UNLABORED ON OXYGEN AT 5L/MIN WITH COOL AEROSOL. PT. HAS A G TUBE FEEDING NOVASOURCE RUNNING AT 50 ML/HR. IV FLUIDS RUNNING AT 100 ML/HR ON LEFT HAND. PT. HAS A KING CATHETER WITH CLEAR AND YELLOW URINE 650 CC TOTAL URINE OUTPUT. BED IS IN LOWEST, AND LOCKED POSITION, 2 SIDE RAILS UP, AND CALL LIGHT WITHIN REACH. PT. IS DISCHARGED, WILL ENDORSE REPORT TO NURSE.
--- NOTE | 2017-09-23 21:10 | NUR ---
CATALYST IMPREGNATOR NOTE PATIENT DISCHARGED TO [facility]. IV REMOVED, TELE MONITOR REMOVED. ID BAND REMOVED. ALL DISCHARGE PAPERWORK GIVEN TO TRANSPORT. PATIENT DISCHARGED VIA ACLS PROTOCOL.
== END 2017-09-23 21:30 | DRG 720 ==
LOC: ER 19:37 → EDSEX 19:37 → TELE1 22:04 → TELE-TD 23:40 → TELE1 09-16 09:43
PROVIDERS: ADMIT Internal Medicine; ATTEND Internal Medicine
DX: A41.9 Sepsis, unspecified organism (principal); J96.21 Acute and chronic respiratory failure with hypoxia; I21.A1 Myocardial infarction type 2; N17.0 Acute kidney failure with tubular necrosis; J69.0 Pneumonitis due to inhalation of food and vomit; G93.40 Encephalopathy, unspecified; G93.1 Anoxic brain damage, not elsewhere classified; J90 Pleural effusion, not elsewhere classified; Z93.0 Tracheostomy status; E43 Unspecified severe protein-calorie malnutrition; D68.59 Other primary thrombophilia; R53.2 Functional quadriplegia; I13.10 Hypertensive heart and chronic kidney disease without heart failure, with stage 1 through stage 4 chronic kidney disease, or unspecified chronic kidney disease; E86.0 Dehydration; N39.0 Urinary tract infection, site not specified; R65.20 Severe sepsis without septic shock; E78.5 Hyperlipidemia, unspecified; Z86.73 Personal history of transient ischemic attack (TIA), and cerebral infarction without residual deficits; E11.22 Type 2 diabetes mellitus with diabetic chronic kidney disease; Z93.1 Gastrostomy status; R13.10 Dysphagia, unspecified; E87.8 Other disorders of electrolyte and fluid balance, not elsewhere classified; N13.30 Unspecified hydronephrosis; Z87.01 Personal history of pneumonia (recurrent); N18.3 Chronic kidney disease, stage 3 (moderate); R74.0 Nonspecific elevation of levels of transaminase and lactic acid dehydrogenase [LDH]; B96.89 Other specified bacterial agents as the cause of diseases classified elsewhere; F19.10 Other psychoactive substance abuse, uncomplicated; L89.619 Pressure ulcer of right heel, unspecified stage; L89.519 Pressure ulcer of right ankle, unspecified stage; L89.899 Pressure ulcer of other site, unspecified stage; E86.1 Hypovolemia; D64.9 Anemia, unspecified; E83.51 Hypocalcemia; E87.0 Hyperosmolality and hypernatremia
CPT/HCPCS: 31720; 36415; 71045-TC; 76705-TC; 76770-TC; 80048-TC; 80053-TC; 80061-TC; 80076-TC; 80202-TC; 81000-TC; 82550-TC; 82553-TC; 82570-TC; 83605-TC; 83690-TC; 83735-TC; 83880; 83935-TC; 83970; 84100-TC; 84155; 84155-TC; 84165; 84300-TC; 84443-TC; 84484-TC; 85025-TC; 85652-TC; 85730-TC; 86706; 86803; 87040-TC; 87070-TC; 87081-TC; 87086-TC; 87186-TC; 87340; 94640-TC; A4216; A4606; A6248; A6253; A6402; A6403; C9113; J0692; J2185; J2543; J3370; J3490; J7030; J7060; J7070; P9047; Z7610

== ENCOUNTER 2020-10-30 19:39 | Inpatient (IN) | payer OTHER ==
[~2020-10-30] VITALS: Ht 177.8 cm; Wt 68.9 kg
[~2020-10-30 19:39] MED LIST: AMLO-213 GT; ASCO250T7 GT; ATOR80TA GT; BROM5CAP3 GT; CADE40GE2 TP; CEFE2FRO IV; CLON0.1T GT; CLON1PAT12 TD; DOCU100C36 GT; ESCI10TA GT; GABA-532 GT; HEPA100I3 IV/SQ; LABE100T5 GT; LINE600T13 GT; LISI10TA29 GT; MULT-594 GT; [UNRECOGNIZED DRUG - CODE] GT
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
--- NOTE | 2020-10-30 19:55 | NUR ---
started iv on left hand g 20, collected blood and sent it to the lab.
--- NOTE | 2020-10-30 19:57 | NUR ---
urine collected and taken it to the lab
[2020-10-30] MEDS ORDERED: IV NS 0.9% 1,000 ML BAG IV ONE ×2 (20:00→21:00)
[2020-10-30] MEDS ORDERED: CEFTAZIDIME 1 G in IV D5W 50 ML IV ONE (20:00)
[2020-10-30] MEDS ORDERED: ACETAMINOPHEN 650 MG/SUPP.RECT RC ONE ×2 (20:00→20:05)
[2020-10-30 20:07] LABS: BASOPHILS % (AUTO) 0.2 % (0.0-2.0); EOSINOPHILS % (AUTO) 0.1 % (0.0-6.0); HEMATOCRIT 29 % (39-51); HEMOGLOBIN 8.8 g/dL (13.5-17.5); LYMPHOCYTES # (AUTO) 0.3 /CMM (0.8-4.8); LYMPHOCYTES % (AUTO) 2.5 % (20.0-44.0); MEAN CORPUSCULAR HGB CONC 31 g/dl (31.0-36.0); MEAN CORPUSCULAR VOLUME 85 fL (80-96); MONOCYTES # (AUTO) 0.3 /CMM (0.1-1.30); MONOCYTES % (AUTO) 2.8 % (2.0-12.0); NEUTROPHILS # (AUTO) 9.8 /CMM (1.8-8.9); NEUTROPHILS % (AUTO) 94.4 % (43.0-81.0); PLATELET COUNT (AUTO) 426 /CMM (150-450); RED BLOOD CELL COUNT(AUTO) 3.35 MIL/uL (4.5-6.0); WHITE BLOOD COUNT (AUTO) 10.4 K/uL (4.3-11.0)
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
[2020-10-30 20:12] LABS: BILIRUBIN,URINE Negative (NEGATIVE); COLOR,URINE YELLOW (YELLOW); LEUKOCYTE ESTERASE ,URINE Large (NEGATIVE); NITRITE, URINE Negative (NEGATIVE); PROTEIN,URINE 100 mg/dl (NEGATIVE); UGLUCOSE Negative (NEGATIVE); UROBILINOGEN,URINE 0.2 EU/dL (0.2)
[2020-10-30 20:15] LABS: RBC,URINE 21-50 /HPF (0-2)
[2020-10-30 20:16] LABS: BACTERIA,URINE 3+ /HPF (None Seen); SQUAMOUS EPITHELIAL CELL,UR Few /HPF (None Seen); WBC,URINE 21-50 /HPF (0-3)
[2020-10-30 20:29] LABS: ALANINE AMINOTRANSFERASE 23 U/L (12-78); ALBUMIN 1.7 g/dL (3.4-5.0); ALKALINE PHOSPHATASE 90 U/L (46-116); ASPARTATE AMINOTRANSFERASE 27 U/L (15-37); BILIRUBIN,DIRECT 0.1 mg/dL (0.0-0.2); BILIRUBIN,TOTAL 0.2 mg/dL (0.2-1.0); CALCIUM, SERUM 8.8 mg/dL (8.5-10.1); CARBON DIOXIDE 31 mmol/L (21-32); CHLORIDE 102 mmol/L (98-107); CREATININE 2.2 mg/dL (0.6-1.3); GLUCOSE 126 mg/dL (74-106); POTASSIUM 4.5 mmol/L (3.5-5.1); SODIUM SERUM 138 mmol/L (136-145); TOTAL PROTEIN, SERUM 7.2 g/dL (6.4-8.2)
--- NOTE | 2020-10-30 20:29 | NUR ---
COVID SWABS DONE AND TAKEN TO THE LAB
[2020-10-30 20:31] LABS: UREA NITROGEN, BLOOD 103 mg/dL (7-18)
--- NOTE | 2020-10-30 21:03 | NUR ---
DR CANDELARIO ORDERS GIVEN. PLACED IN CHART
--- NOTE | 2020-10-30 21:30 | NUR ---
Call from lab. Rapid covid negative.
--- NOTE | 2020-10-30 21:39 | NUR ---
ATTEMPTED TO GIVE REPORT, NURSE WILL CALL BACK
--- NOTE | 2020-10-30 21:54 | NUR ---
REPORT GIVEN TO ELIE OLIVARES FOR OSMANY
--- NOTE | 2020-10-30 22:07 | NUR ---
THE PATIENT GOT TRANSFERED PER ACLS PROTOCOL.
[2020-10-30 22:15] VITALS: BP 115/69
--- NOTE | 2020-10-30 23:00 | NUR ---
RN NOTES RECEIVED PT FROM ER AT 2213. SAFELY TRANSFERRED TO BED. PT ON TRACH/VENT. RT AT BEDSIDE WITH SETTING OF AC 12 TV 500 FIO2 50 % P 5. NO SIGNS OF DISTRESS NOTED. HOOKED TO EXTERNAL MONITOR, SHOWS SINUS TACH WITH HR 118. PT OBTUNDED AND QUADRIPLEGIC. WITH MULTIPLE WOUNDS, APPLIED MEPILEX. PT WITH KING CATH DRAINING YELLOW URINE BY GRAVITY. WITH GT, CHECKED FOR PLACEMENT. WITH RIGHT HAND/5TH DIGITS AND LHAND IV LINE, BOTH PATENT AND INTACT. ALL SAFETY MEASURES IMPLEMENTED PER PROTOCOL. CALL LIGHT WITHIN REACH. BED LOCKED IN LOWEST POSITION. SIDE RAILS UP X2.
[2020-10-30] MEDS ORDERED: ONDANSETRON HCL/PF 4 MG/2 ML VIAL IV PRN (23:30)
[2020-10-30] MEDS ORDERED: BLOOD SUGAR DIAGNOSTIC 1 EACH STRIP IN SCH (23:30)
[2020-10-30] MEDS ORDERED: DEXTROSE 50%-WATER 50 ML DISP.SYRIN IV PRN (23:30)
[2020-10-30] MEDS ORDERED: MORPHINE SULFATE INJ 2 MG/ML DISP.SYRIN IV PRN (23:30)
[2020-10-30] MEDS ORDERED: MEROPENEM 1 G in IV NS 0.9% 100 ML IV ONE (23:45)
[2020-10-30] MEDS: IV NS 0.9% 1,000 ML IV SCH (23:59)
[2020-10-31] VITALS: BP 121/77
[2020-10-31] MEDS ORDERED: MEROPENEM 1 G in IV NS 0.9% 100 ML IV SCH
--- NOTE | 2020-10-31 00:36 | NUR ---
rn note fsbs 90. no insulin coverage given. pt npo, on ivf ns at 100ml/hr
[2020-10-31] MEDS: PANTOPRAZOLE 40 MG VIAL IV SCH ×2 (00:37→21:18)
[2020-10-31] MEDS ORDERED: MEROPENEM 1 G VIAL IV ONE (01:33)
[2020-10-31 04:00] VITALS: BP 115/76
[2020-10-31 06:23] LABS: BASOPHILS % (AUTO) 0.1 % (0.0-2.0); EOSINOPHILS % (AUTO) 0.1 % (0.0-6.0); HEMATOCRIT 25 % (39-51); HEMOGLOBIN 8.1 g/dL (13.5-17.5); LYMPHOCYTES # (AUTO) 0.4 /CMM (0.8-4.8); LYMPHOCYTES % (AUTO) 4.3 % (20.0-44.0); MEAN CORPUSCULAR HGB CONC 32 g/dl (31.0-36.0); MEAN CORPUSCULAR VOLUME 82 fL (80-96); MONOCYTES # (AUTO) 0.2 /CMM (0.1-1.30); MONOCYTES % (AUTO) 2.7 % (2.0-12.0); NEUTROPHILS # (AUTO) 7.7 /CMM (1.8-8.9); NEUTROPHILS % (AUTO) 92.8 % (43.0-81.0); PLATELET COUNT (AUTO) 396 /CMM (150-450); RED BLOOD CELL COUNT(AUTO) 3.08 MIL/uL (4.5-6.0); WHITE BLOOD COUNT (AUTO) 8.3 K/uL (4.3-11.0)
[2020-10-31] MEDS: BLOOD SUGAR DIAGNOSTIC 1 EACH STRIP IN SCH ×4 (06:23→23:28)
[2020-10-31 06:30] LABS: CALCIUM, SERUM 8.7 mg/dL (8.5-10.1); CREATININE 1.7 mg/dL (0.6-1.3); POTASSIUM 4.2 mmol/L (3.5-5.1)
--- NOTE | 2020-10-31 06:40 | NUR ---
RN NOTES PT TOLERATING VENT SETTINGS, NO S/SX OF RESP DISTRESS NOTED. SUCTIONED NEEDED. KEPT HOB ELEVATED. PT FSBS AT 74. NO INSULIN COVERAGE GIVEN, CONTINUE ON IVF OF NS AT 100 ML/HR. NO SIGNS OF INFILTRATION NOTED. IV SITES CLEAN NO REDNESS NOTED. KING INDWELLING WELL. NO SIGNS OF PAIN OF DISCOMFORT NOTED. REPOSITIONED Q2H. ON FREQUENT VISUAL CHECKS. PT AFEBRILE, VS STABLE. ALL SAFETY MEASURES MAINTAINED. WILL ENDORSE TO NEXT SHIFT NURSE FOR OSMANY.
--- NOTE | 2020-10-31 07:30 | NUR ---
RN OPENING NOTE PATIENT [facility] IN BED, [facility], TOLERATING SETTINGS WELL, SPO2 IS 100%, NO S/SX OF DISTRESS, PAIN, OR DISCOMFORT NOTED, KING CATH IN PLACE, DRAINING YELLOW CLEAR URINE BY GRAVITY, IV LINES ON BOTH HANDS, FLUSHED, INTACT AND PATENT, SAFETY MEASURES IN PLACE, HOB ELEVATED, CALL LIGHT IN REACH, WILL CONT TO MONITOR
--- NOTE | 2020-10-31 07:50 | NUR ---
PATIENT ALLERGIC TO PENICILLIN, RECEIVED PHONE CALL FROM PHARMACY CONFIRMING OK TO PROCEED WITH [facility] IV ADMINISTRATION
[2020-10-31] MEDS: MEROPENEM 500 MG in IV NS 0.9% 100 ML IV SCH ×3 (07:57→20:24)
[2020-10-31 08:00] VITALS: BP 146/83
[2020-10-31] MEDS ORDERED: EPOE1000 SQ (08:01)
[2020-10-31] MEDS ORDERED: CHLO473M5 MM (08:01)
[2020-10-31] MEDS ORDERED: MAGN400O6 GT (08:01)
[2020-10-31] MEDS ORDERED: NUTR1PAC14 GT (08:01)
[2020-10-31] MEDS ORDERED: DOCU50LI GT (08:01)
[2020-10-31] MEDS ORDERED: HYDR-3980 GT ×2 (08:01)
[2020-10-31] MEDS ORDERED: AMIN30LI2 GT (08:01)
[2020-10-31] MEDS ORDERED: ALBU8.5H8 IH ×2 (08:01)
[2020-10-31] MEDS ORDERED: MULT9LIQ6 GT (08:01)
[2020-10-31] MEDS ORDERED: VITA-354 GT (08:01)
[2020-10-31] MEDS ORDERED: ACET-868 GT (08:01)
[2020-10-31] MEDS ORDERED: BISA10SU11 RC (08:01)
[2020-10-31] MEDS ORDERED: BACL10TA GT (08:01)
[2020-10-31] MEDS ORDERED: NA P133E RC (08:01)
[2020-10-31] MEDS ORDERED: OMEG-167 PO (08:01)
[2020-10-31] MEDS ORDERED: ACET-2605 GT (08:01)
[2020-10-31] MEDS ORDERED: CLON0.1T GT (08:01)
[2020-10-31] MEDS ORDERED: HYDR-4077 GT (08:01)
[2020-10-31] MEDS ORDERED: FERR300L GT (08:01)
[2020-10-31] MEDS ORDERED: NUT.237L31 GT (08:01)
[2020-10-31] MEDS ORDERED: LANS30CA56 GT (08:01)
[2020-10-31] MEDS ORDERED: SACC250C GT (08:01)
[2020-10-31] MEDS ORDERED: POLY17PO4 GT (08:01)
[2020-10-31] MEDS ORDERED: CRAN3875 GT (08:01)
--- NOTE | 2020-10-31 08:13 | NUR ---
WOUND CARE CONSULT: REVIEWED CHART,NURSING DOCUMENTATION AND PHOTOS WHICH INDICATE MULTIPLE WOUNDS, PRESENT ON ADMISSION. RECOMMEND SURGICAL AND DPM CONSULTS. DR LYON AND DR BLANKENSHIP NOTIFIED OF CONSULT REQUESTS. PT IS ON PETE ISOFLEX LOW AIRLOSS BED. ALL SKIN PROTECTION RECOMMENDATIONS INP LACE AND DISCUSSED WITH NURSING STAFF. MD IN AGREEMENT WITH PLAN OF CARE.
[2020-10-31] MEDS ORDERED: Z GUARD REMEDY 2 OZ OINT TP PRN (08:30)
[2020-10-31] MEDS: Z GUARD REMEDY 2 OZ OINT TP SCH (09:00)
[2020-10-31] MEDS: IV NS 0.9% 1,000 ML IV SCH ×2 (09:30→19:34)
[2020-10-31] MEDS ORDERED: BISACODYL SUPP (10 MG) 10 MG/SUPP.RECT SUPP.RECT RC PRN (11:00)
[2020-10-31] MEDS ORDERED: GLUCERNA 1.5 1,000 ML BOTTLE GT SCH (11:00)
[2020-10-31] MEDS ORDERED: ACETAMINOPHEN 325 MG TABLET MC PRN (11:00)
[2020-10-31] MEDS ORDERED: NA PHOS,M-B/NA PHOS,DI-BA 1 EA ENEMA RC PRN (11:00)
[2020-10-31] MEDS ORDERED: MAGNESIUM HYDROXIDE 30 ML UDC GT PRN (11:00)
[2020-10-31] MEDS ORDERED: HYDROCODONE/APAP 10/325MG TABLET GT PRN (11:00)
[2020-10-31] MEDS ORDERED: CLONIDINE HCL 0.1 MG TABLET GT PRN (11:00)
[2020-10-31 11:16] LABS: ABG BASE EXCESS 4.7 mmol/L; ABG OXYGEN SATURATION 98.6 % (92.0-98.5); ABG PCO2 40.6 mmHg (35.0-45.0); ABG PH 7.468 (7.350-7.450); ABG PO2 128.4 mmHg (75.0-100.0); AaDO2 182.4 mmHg; COHb 0.3 % (0.5-1.5); MetHb 0.7 % (0.0-1.5); O2Hb 97.6 % (94.0-97.0)
[2020-10-31] MEDS ORDERED: ALBUTEROL FS 2.5 MG/3 ML VIAL.NEB IH PRN (11:30)
[2020-10-31 12:00] VITALS: BP 155/85
[2020-10-31] MEDS ORDERED: GLUCERNA 1.5 1,000 ML BOTTLE NG PRN (12:00)
[2020-10-31] MEDS: GABAPENTIN 100 MG CAPSULE GT SCH ×2 (12:46→20:25)
[2020-10-31] MEDS: hydrALAZINE HCL 50 MG TABLET GT SCH ×2 (12:47→20:37)
[2020-10-31] MEDS: HEPARIN SODIUM, PORCINE 5000 UNITS/1 ML VIAL SQ SCH ×2 (12:47→20:37)
[2020-10-31] MEDS ORDERED: THERAHONEY GEL 1.5 OZ TUBE TP PRN (13:30)
[2020-10-31] MEDS ORDERED: GLUCERNA 1.2 1,000 ML BOTTLE GT PRN (14:30)
--- NOTE | 2020-10-31 15:05 | NUR ---
[facility] per Breanna social sciences lecturer, patient has no family, so unable to obtain consent at this time, have to be made by [employer]
[2020-10-31 16:00] VITALS: BP 129/75
[2020-10-31] MEDS ORDERED: Medication Not On Formulary EA (Lansoprazole 30 MG) GT SCH (17:00)
[2020-10-31] MEDS: NYSTATIN TOP POWDER 15 GM BOTTLE TP SCH (17:22)
[2020-10-31] MEDS: FERROUS SULFATE UDC 300 MG/5 ML UDC GT SCH (17:22)
[2020-10-31] MEDS: POLYETHYLENE GLYCOL 3350 17 GM POWD.PACK GT SCH (17:22)
[2020-10-31] MEDS: ASCORBIC ACID 500 MG TABLET GT SCH (17:22)
[2020-10-31] MEDS: DOCUSATE SODIUM LIQ 100 MG/10 ML UDC GT SCH (17:22)
[2020-10-31] MEDS ORDERED: ASCORBIC ACID 250 MG TABLET NG SCH (18:00)
--- NOTE | 2020-10-31 18:28 | NUR ---
RN CLOSING NOTES REMAINS IN BED,STABLE NO ACUTE CHANGES DURING SHIFT, TOLERATING VENT SETTINGS WELL, MEDICATIONS GIVEN, WOUND CARE PROVIDED, COMFORT NEEDS ATTENDED, SAFETY PRECAUTIONS IN PLACE, WILL ENDORSE TO PM SHIFT FOR OSMANY
--- NOTE | 2020-10-31 19:25 | NUR ---
RECEIVED PT ON BED OBTUNDED, EYES OPEN, ON TRACH/VENT SETTING PER MD FIO2 50% SPO2 97% TELE MONITOR READS SINUS TACHY 110'S HAVE LEFT HAND #20 AND RIGHT HAND # 24 IV WITH ONGOIGN NS @ 100ML/HR INFUSING WELL, HAVE GTUEB ON PLACE PLACEMENT CHECKED RESIDUAL 0ML, CURRENTLY CLAMPED, BED ON LOWEST POSITION AND LOCKED SIDE RAILS UP X 2 CALL LIGHT WITHIN REACH WILL CONT TO MONITOR
[2020-10-31 20:00] VITALS: BP 132/87
[2020-10-31] MEDS: CHLORHEXIDINE GLUCONATE 15 ML UDC MM SCH (20:24)
[2020-10-31] MEDS: BACLOFEN (10 MG) 10 MG TABLET GT SCH (20:25)
[2020-10-31] MEDS ORDERED: HYDROCODONE/APAP 10/325MG TABLET GT SCH (21:00)
[2020-10-31] MEDS: INSULIN REGULAR, HUMAN 100 UNIT/ML 3 ML VIAL SQ PRN (23:29)
[2020-11-01] VITALS: BP 120/77
[2020-11-01 04:00] VITALS: BP 134/87
[2020-11-01] MEDS: MEROPENEM 500 MG in IV NS 0.9% 100 ML IV SCH ×3 (04:14→21:09)
[2020-11-01] MEDS: GABAPENTIN 100 MG CAPSULE GT SCH ×3 (04:14→21:10)
[2020-11-01] MEDS: hydrALAZINE HCL 50 MG TABLET GT SCH ×3 (04:17→21:10)
[2020-11-01 05:56] LABS: BASOPHILS % (AUTO) 0.2 % (0.0-2.0); HEMATOCRIT 26 % (39-51); HEMOGLOBIN 8.4 g/dL (13.5-17.5); LYMPHOCYTES # (AUTO) 0.5 /CMM (0.8-4.8); MEAN CORPUSCULAR HGB CONC 32 g/dl (31.0-36.0); MEAN CORPUSCULAR VOLUME 82 fL (80-96); MONOCYTES # (AUTO) 0.3 /CMM (0.1-1.30); MONOCYTES % (AUTO) 3.1 % (2.0-12.0); NEUTROPHILS # (AUTO) 9.3 /CMM (1.8-8.9); NEUTROPHILS % (AUTO) 91.7 % (43.0-81.0); PLATELET COUNT (AUTO) 429 /CMM (150-450); RED BLOOD CELL COUNT(AUTO) 3.22 MIL/uL (4.5-6.0); WHITE BLOOD COUNT (AUTO) 10.2 K/uL (4.3-11.0)
[2020-11-01] MEDS: BLOOD SUGAR DIAGNOSTIC 1 EACH STRIP IN SCH ×3 (06:05→18:01)
[2020-11-01] MEDS: IV NS 0.9% 1,000 ML IV SCH ×2 (06:06→15:49)
[2020-11-01] MEDS: INSULIN REGULAR, HUMAN 100 UNIT/ML 3 ML VIAL SQ PRN ×3 (06:06→18:01)
--- NOTE | 2020-11-01 06:42 | NUR ---
PT ON BED STILL ON TRACH/VENT SETTING PER MD FIO2 40% SPO2 98% NO SIGN OF RESPIRATORY DISTRESS NOTED, TELE MONITOR READS SINUS TACHY 110'S NO SIGNIFICANT CHANGES ON CONDITION NOTED ALL NEEDS ATTENDED, WOUND TREATMENT RENDERED, BED ON LOWEST POSITION AND LOCKED SIDE RAIL UP X2 WILL ENDORSE TO AM SHIFT NURSE
[2020-11-01 07:18] LABS: ALBUMIN 1.7 g/dL (3.4-5.0); BILIRUBIN,TOTAL 0.2 mg/dL (0.2-1.0); CALCIUM, SERUM 9.2 mg/dL (8.5-10.1); CREATININE 1.5 mg/dL (0.6-1.3); MAGNESIUM 2.9 mg/dL (1.8-2.4); PHOSPHORUS 2.7 mg/dL (2.5-4.9); POTASSIUM 3.7 mmol/L (3.5-5.1); TOTAL PROTEIN, SERUM 7.6 g/dL (6.4-8.2)
--- NOTE | 2020-11-01 07:20 | NUR ---
RN OPENING NOTES RECEIVED PT IN BED. OBTUNDED. ON TRACH PORTEX 7 [facility] TOLERATING SETTINGS WELL. O2 SAT @100%. NO SOB OR ANY S/SX OF RESPIRATORY DISTRESS. NO PAIN OR DISCOMFORT NOTED. KING CATH IN PLACE, DRAINING YELLOW CLEAR URINE BY GRAVITY. IV SITES BOTH INTACT AND PATENT. NS RUNNING @100ML/HR. SAFETY MEASURES IN PLACE. CALL LIGHT WITHIN REACH. HOB ELEVATED. WILL CONTINUE TO MONITOR.
[2020-11-01 08:00] VITALS: BP 133/86
[2020-11-01] MEDS: HEPARIN SODIUM, PORCINE 5000 UNITS/1 ML VIAL SQ SCH ×2 (09:00→21:11)
[2020-11-01] MEDS: CHLORHEXIDINE GLUCONATE 15 ML UDC MM SCH ×2 (09:06→21:10)
[2020-11-01] MEDS: FERROUS SULFATE UDC 300 MG/5 ML UDC GT SCH ×2 (09:06→17:02)
[2020-11-01] MEDS: DOCUSATE SODIUM LIQ 100 MG/10 ML UDC GT SCH ×2 (09:06→17:02)
[2020-11-01] MEDS: MULTIVIT W/MINERALS 1 TAB TABLET GT SCH (09:06)
[2020-11-01] MEDS: POLYETHYLENE GLYCOL 3350 17 GM POWD.PACK GT SCH ×2 (09:07→17:02)
[2020-11-01] MEDS: BACLOFEN (10 MG) 10 MG TABLET GT SCH ×2 (09:07→21:10)
[2020-11-01] MEDS: AMLODIPINE BESYLATE 10 MG TABLET GT SCH (09:07)
[2020-11-01] MEDS: NYSTATIN TOP POWDER 15 GM BOTTLE TP SCH ×2 (09:08→17:02)
[2020-11-01] MEDS: Z GUARD REMEDY 2 OZ OINT TP SCH (09:08)
[2020-11-01] MEDS: HYDROGEL DRESSING 90 GM TUBE TP SCH (09:08)
--- NOTE | 2020-11-01 10:17 | NUR ---
RN NOTES PT FOR POSSIBLE WOUND DEBRIDEMENT. HOLD HEPARIN PER MD.
--- NOTE | 2020-11-01 11:52 | NUR ---
RN NOTES BS OF 101, NO INSULIN COVERAGE.
[2020-11-01 12:00] VITALS: BP 132/82
[2020-11-01 16:00] VITALS: BP 121/70
[2020-11-01] MEDS: ASCORBIC ACID 500 MG TABLET GT SCH (17:02)
--- NOTE | 2020-11-01 18:02 | NUR ---
RN NOTES BS OF 117, NO INSULIN COVERAGE.
--- NOTE | 2020-11-01 18:39 | NUR ---
RN CLOSING NOTES NO SIGNIFICANT CHANGES THROUGHOUT THE SHIFT. TOLERATING VENT SETTINGS WELL. ALL DUE MEDS GIVEN. NEEDS ATTENDED. KEPT COMFORTABLE. SAFETY MEASURES STILL IN PLACE. WILL ENDORSE TO NIGHT RN FOR OSMANY.
--- NOTE | 2020-11-01 19:40 | NUR ---
RECEIVED PT TRACHED PORTEX 7 ON VENT WITH THE SETTINGS OF AC 12, VT 500, PEEP 5, FIO2 40%. SX'D DONE. VENT ALARMS SET AND AUDIBLE. TRACH CUFF CHECKED. VENT PLUGGED INTO RED OUTLET. WILL CONTINUE TO MONITOR PT T/O SHIFT.
[2020-11-01 20:00] VITALS: BP 139/78
[2020-11-01] MEDS: PANTOPRAZOLE 40 MG VIAL IV SCH (21:09)
[2020-11-01] MEDS: MUPIROCIN OINT 2% 22 GM TUBE NS SCH (21:10)
[2020-11-01] MEDS: ACETAMINOPHEN 325 MG TABLET PO PRN (23:02)
[2020-11-02] VITALS: BP 125/70
[2020-11-02] MEDS: BLOOD SUGAR DIAGNOSTIC 1 EACH STRIP IN SCH ×4 (00:18→17:35)
[2020-11-02] MEDS: IV NS 0.9% 1,000 ML IV SCH (00:56)
[2020-11-02 04:00] VITALS: BP 125/67
[2020-11-02] MEDS: MEROPENEM 500 MG in IV NS 0.9% 100 ML IV SCH ×3 (05:07→20:52)
[2020-11-02] MEDS: hydrALAZINE HCL 50 MG TABLET GT SCH ×3 (05:09→20:55)
[2020-11-02] MEDS: GABAPENTIN 100 MG CAPSULE GT SCH ×3 (05:09→20:52)
[2020-11-02 05:56] LABS: BASOPHILS % (AUTO) 0.3 % (0.0-2.0); EOSINOPHILS % (AUTO) 0.4 % (0.0-6.0); HEMATOCRIT 25 % (39-51); HEMOGLOBIN 7.7 g/dL (13.5-17.5); LYMPHOCYTES # (AUTO) 0.8 /CMM (0.8-4.8); LYMPHOCYTES % (AUTO) 9.2 % (20.0-44.0); MEAN CORPUSCULAR HGB CONC 31 g/dl (31.0-36.0); MEAN CORPUSCULAR VOLUME 83 fL (80-96); MONOCYTES # (AUTO) 0.5 /CMM (0.1-1.30); MONOCYTES % (AUTO) 6.1 % (2.0-12.0); NEUTROPHILS # (AUTO) 7.6 /CMM (1.8-8.9); PLATELET COUNT (AUTO) 417 /CMM (150-450); RED BLOOD CELL COUNT(AUTO) 3.02 MIL/uL (4.5-6.0)
[2020-11-02 06:39] LABS: CALCIUM, SERUM 8.4 mg/dL (8.5-10.1); CREATININE 1.3 mg/dL (0.6-1.3); POTASSIUM 3.8 mmol/L (3.5-5.1)
[2020-11-02 08:00] VITALS: BP 124/67
--- NOTE | 2020-11-02 08:00 | NUR ---
SUPERVISOR REACTOR FUELING NOTE PATIENT IN BED .AWAKE OBTUNDED, WITH TRACK TO VENT SETTING ORDERED, ON TELE MONITOR SR HR 95, WITH G TUBE FEEDING ORDERED KEEP HOB ELEVATED AT ALL TIME, RT HAND AND LT HAND IV HL INTACT AND FLUSHED WELL , BED IN LOWEST AND LOCKED POSITION, NO SOB NOTYED WILL CONT TO MONITOR
[2020-11-02 08:07] LABS: PTH, INTACT 31 pg/mL (15-65)
[2020-11-02] MEDS: FERROUS SULFATE UDC 300 MG/5 ML UDC GT SCH ×2 (08:21→16:10)
[2020-11-02] MEDS: HEPARIN SODIUM, PORCINE 5000 UNITS/1 ML VIAL SQ SCH ×2 (08:21→20:58)
[2020-11-02] MEDS: CHLORHEXIDINE GLUCONATE 15 ML UDC MM SCH ×2 (08:22→20:52)
[2020-11-02] MEDS: ACETAMINOPHEN 325 MG TABLET PO PRN ×3 (08:22→20:53)
[2020-11-02] MEDS: MULTIVIT W/MINERALS 1 TAB TABLET GT SCH (08:23)
[2020-11-02] MEDS: BACLOFEN (10 MG) 10 MG TABLET GT SCH ×2 (08:23→20:55)
[2020-11-02] MEDS: AMLODIPINE BESYLATE 10 MG TABLET GT SCH (08:23)
[2020-11-02] MEDS: MUPIROCIN OINT 2% 22 GM TUBE NS SCH ×2 (08:24→20:55)
[2020-11-02] MEDS: POLYETHYLENE GLYCOL 3350 17 GM POWD.PACK GT SCH ×2 (08:25→16:10)
[2020-11-02] MEDS: NYSTATIN TOP POWDER 15 GM BOTTLE TP SCH ×2 (08:25→16:11)
[2020-11-02] MEDS: HYDROGEL DRESSING 90 GM TUBE TP SCH (08:25)
[2020-11-02] MEDS: DOCUSATE SODIUM LIQ 100 MG/10 ML UDC GT SCH ×2 (08:25→16:10)
[2020-11-02] MEDS: Z GUARD REMEDY 2 OZ OINT TP SCH (08:34)
--- NOTE | 2020-11-02 08:34 | NUR ---
ROOM SERVICE BELLHOP NOTE T 100.1 TYLENOL, VIA G TUBE GIVEN ALSO PER REPORT BUILDINGS PAINTER NURSE PATIENT HAS LOOSE STILL WILL HOLD LAXATIVE MEDICATION FOR NOW ,WILL REPOT TO
--- NOTE | 2020-11-02 10:56 | NUR ---
PURCHASING MANAGER/SALES NOTE NA 153 NOTIFIED DEREK COOK VP STRATEGIC PLANNING STEEL ESTIMATOR NOTIFIED , WITH ORDER FREE WATER 250 ML Q 6 HOUR AND NOTIFIED THAT ON IVF NS AT 100 ML PER HOUR STATED THAT WUGALINA CHECK IT OUT
[2020-11-02 11:07] LABS: *SPE A/G RATIO 0.4 (0.7-1.7); *SPE ALPHA-1-GLOBULIN 0.3 g/dL (0.0-0.4); *SPE ALPHA-2-GLOBULIN 1.1 g/dL (0.4-1.0); *SPE BETA GLOBULIN 1.2 g/dL (0.7-1.3); *SPE GLOBULIN, TOTAL 4.5 g/dL (2.2-3.9); *SPE M-SPIKE Not Observed g/dL (Not Observed); *SPEGAMMA GLOBULIN 1.9 g/dL (0.4-1.8)
[2020-11-02] MEDS: IV D5W 1,000 ML IV SCH (11:13)
[2020-11-02 12:00] VITALS: BP 128/65
[2020-11-02] MEDS: PANTOPRAZOLE 40 MG TABLET.DR PO SCH (12:13)
--- NOTE | 2020-11-02 13:00 | NUR ---
MECHANICAL REPAIR WORKER NOTE ALL NEEDS ATTENDED,TURN REPOSITION Q2 HOUR
[2020-11-02 16:00] VITALS: BP 141/73
--- NOTE | 2020-11-02 16:07 | NUR ---
FUR IRONER NOTE MID LINE INSERTED BY PICC LINE NURSE
--- NOTE | 2020-11-02 16:21 | NUR ---
COMMERCIAL FOOD INSTRUCTOR NOTE T 100.2 TYLENOL G TUBE GIVEN ORDERED
[2020-11-02] MEDS: ASCORBIC ACID 500 MG TABLET GT SCH (17:38)
--- NOTE | 2020-11-02 18:36 | NUR ---
DRAGLINE OPERATOR NOTE ROUNDS MADE , PATIENT WITH TRACH TO VENT SETTING ORDERED ,TOLERATED WELL, WITH KING CATH TO GRAVITY WITH YELLOW COLOR URINE, ON IVF ORDERED WITH G TUBE FEEDING NOTED RESIDUAL 50 ML, KEEP HOB ELEVATED AT ALL TIME , NO SOB NOTED ,WILL CONT TO MONITOR SAFETY MEASURE IMPLEMENTED, BED IN LOWEST AND LOCKED POSITION , CALL LIGHT WITHIN REACH
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
[2020-11-02 20:00] VITALS: BP 136/79
--- NOTE | 2020-11-02 20:10 | NUR ---
RN NOTES NOTED PT'S TEMP 100.0@2000. PRN MEDS GIVEN AND COOLING MEASURES PROVIDED. GUILLE DELGADILLO MADE AWARE. WILL RE-EVALUATE AFTER 30 MINUTES- 1 HOUR. WILL CONTINUE TO MONITOR Addendum: 11/02/20 at 2312 by JOSELITO EVANS RN AT 2115 RECHECKED FOR PT'S TEMP AND TEMP IS AT 99.0; GUILLE DELGADILLO MADE AWARE. WILL CONTINUE TO PROVIDE COOLING MEASURES AND MONITOR THROUGHOUT THE SHIFT
--- NOTE | 2020-11-02 23:00 | NUR ---
RN NOTES NO CHANGE IN PATIENT CONDITION AT THIS TIME PATIENT VITALS STABLE, NO SIGNS OF ACUTE RESPIRATORY DISTRESS. HEMODIALYSIS LAB TECHNICIAN MADE AWARE. WILL CONTINUE TO MONITOR AND REASSESS FOR ANY CHANGES THROUGHOUT THE SHIFT.
[2020-11-03] VITALS: BP 120/67
[2020-11-03] MEDS: IV D5W 1,000 ML IV SCH ×2 (00:20→13:40)
[2020-11-03] MEDS: BLOOD SUGAR DIAGNOSTIC 1 EACH STRIP IN SCH ×3 (00:30→12:23)
[2020-11-03] MEDS: INSULIN REGULAR, HUMAN 100 UNIT/ML 3 ML VIAL SQ PRN (00:31)
--- NOTE | 2020-11-03 03:00 | NUR ---
RN NOTES PATIENT REMAINS IN NO ACUTE RESPIRATORY DISTRESS AT THIS TIME, NO CHANGES TO CONDITION/STATUS. PATIENT CARE DONE. 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 WILL CONTINUE TO MONITOR AND REASSESS FOR ANY CHANGES THROUGHOUT THE SHIFT
[2020-11-03 04:00] VITALS: BP 135/77
[2020-11-03] MEDS: MEROPENEM 500 MG in IV NS 0.9% 100 ML IV SCH ×2 (04:03→12:24)
[2020-11-03] MEDS: GABAPENTIN 100 MG CAPSULE GT SCH ×2 (04:04→12:24)
[2020-11-03] MEDS: hydrALAZINE HCL 50 MG TABLET GT SCH ×2 (04:11→12:25)
[2020-11-03 05:51] LABS: BASOPHILS % (AUTO) 0.3 % (0.0-2.0); EOSINOPHILS % (AUTO) 0.5 % (0.0-6.0); HEMATOCRIT 26 % (39-51); HEMOGLOBIN 8.1 g/dL (13.5-17.5); LYMPHOCYTES # (AUTO) 1.4 /CMM (0.8-4.8); LYMPHOCYTES % (AUTO) 13.4 % (20.0-44.0); MEAN CORPUSCULAR HGB CONC 31 g/dl (31.0-36.0); MEAN CORPUSCULAR VOLUME 83 fL (80-96); MONOCYTES # (AUTO) 0.7 /CMM (0.1-1.30); MONOCYTES % (AUTO) 6.8 % (2.0-12.0); NEUTROPHILS # (AUTO) 8.1 /CMM (1.8-8.9); PLATELET COUNT (AUTO) 398 /CMM (150-450); RED BLOOD CELL COUNT(AUTO) 3.16 MIL/uL (4.5-6.0); WHITE BLOOD COUNT (AUTO) 10.2 K/uL (4.3-11.0)
[2020-11-03 06:12] LABS: CALCIUM, SERUM 7.8 mg/dL (8.5-10.1); CREATININE 1.4 mg/dL (0.6-1.3)
--- NOTE | 2020-11-03 06:56 | NUR ---
RN CLOSING NOTE: PATIENT REMAINS IN ROOM IN NO SIGNS OF RESPIRATORY DISTRESS; STILL ON VENT SETTING PER ORDERED. SAFETY MEASURES IMPLEMENTED, BED IN LOWEST POSITION, LOCKED, SIDE RAILS UP, CALL LIGHT WITHIN REACH. ALL NEEDS AND ORDERS ADDRESSED DURING THE SHIFT. IV ACCESS MAINTAINED INTACT, SECURED AND FLUSHING WELL. ALL DUE MEDS GIVEN ORDERED & SCHEDULED ; PATIENT TOLERATED WELL. PATIENT KEPT CLEAN AND COMFORTABLE WITHIN THE SHIFT. PATIENT ENDORSED TO INCOMING SHIFT RN WITH STABLE VITAL SIGN AND FOR CONTINUITY OF CARE.
--- NOTE | 2020-11-03 07:20 | NUR ---
RN OPENING NOTE PATIENT RECEIVED IN ROOM RESTING IN SEMI-FOWLERS POSITION. PATIENT ON VENT SETTING PER ORDERED. NO SIGNS OF RESPIRATORY DISTRESS NOTED. G-TUBE FEEDING GLUCERNA RUNNING AT 65 ML/HR. KING CATHETER RUNNING YELLOW URINE. SAFETY MEASURES IMPLEMENTED, BED LOCKED IN LOWEST POSITION, SIDE RAILS UP X2, CALL LIGHT WITHIN REACH. WILL CONTINUE TO MONITOR AND PROVIDE CARE THROUGHOUT SHIFT.
[2020-11-03 08:00] VITALS: BP 138/77
[2020-11-03] MEDS: PANTOPRAZOLE 40 MG TABLET.DR PO SCH (08:37)
[2020-11-03] MEDS: DOCUSATE SODIUM LIQ 100 MG/10 ML UDC GT SCH (08:37)
[2020-11-03] MEDS: BACLOFEN (10 MG) 10 MG TABLET GT SCH (08:38)
[2020-11-03] MEDS: MULTIVIT W/MINERALS 1 TAB TABLET GT SCH (08:38)
[2020-11-03] MEDS: FERROUS SULFATE UDC 300 MG/5 ML UDC GT SCH (08:38)
[2020-11-03] MEDS: CHLORHEXIDINE GLUCONATE 15 ML UDC MM SCH (08:43)
[2020-11-03] MEDS: POLYETHYLENE GLYCOL 3350 17 GM POWD.PACK GT SCH (08:43)
[2020-11-03] MEDS: ACETAMINOPHEN 325 MG TABLET PO PRN ×2 (08:43→17:37)
[2020-11-03] MEDS: AMLODIPINE BESYLATE 10 MG TABLET GT SCH (08:46)
[2020-11-03] MEDS: HEPARIN SODIUM, PORCINE 5000 UNITS/1 ML VIAL SQ SCH (08:51)
[2020-11-03] MEDS: Z GUARD REMEDY 2 OZ OINT TP SCH (09:00)
[2020-11-03] MEDS: NYSTATIN TOP POWDER 15 GM BOTTLE TP SCH (09:00)
[2020-11-03] MEDS: HYDROGEL DRESSING 90 GM TUBE TP SCH (09:00)
[2020-11-03] MEDS: MUPIROCIN OINT 2% 22 GM TUBE NS SCH (09:05)
[2020-11-03] MEDS ORDERED: MERO500V23 IV (11:03)
[2020-11-03 12:00] VITALS: BP 138/73
[2020-11-03 12:25] VITALS: BP 138/73
--- NOTE | 2020-11-03 15:43 | NUR ---
RECEIVED PATIENT ON VENT SETTINGS OF AC 12, VT 500, FIO2 40%, PEEP 5. HAS A TRACH PORTEX 7 CUFFED. AIRWAY PATENT AND SECURE. NO RESPIRATORY DISTRESS NOTED. HAS SMALL TO MODERATE YELLOW, THICK SECRETIONS. ALARMS SET AND AUDIBLE. AMBU BAG AT THE BEDSIDE. VENT PLUGGED INTO RED OUTLET. EMERGENCY TRACH AT THE BEDSIDE.
--- NOTE | 2020-11-03 16:35 | NUR ---
PATIENT DISCHARGED FROM HOSPITAL IN STABLE CONDITION. CARE TRANSFERRED OVER TO AMBULANCE WITH RT. PATIENT TRANSFERRED TO [facility]. REPORT GIVEN TO OLINDA. DISCHARGE PAPERWORK AND INSTRUCTIONS GIVEN TO PATIENT.
== END 2020-11-03 17:40 | DRG 720 ==
LOC: ER 19:41 → EDBD 19:41 → TELE1 21:03
PROVIDERS: ADMIT Legal Medicine; ATTEND Legal Medicine
PROC: 5A1955Z Respiratory Ventilation, Greater than 96 Consecutive Hours (ICD-10-PCS; principal; 2020-10-30)
PROC: 05HA33Z Insertion of Infusion Device into Left Brachial Vein, Percutaneous Approach (ICD-10-PCS; 2020-11-02)
DX: A41.9 Sepsis, unspecified organism (principal); G93.41 Metabolic encephalopathy; N39.0 Urinary tract infection, site not specified; E86.0 Dehydration; R53.2 Functional quadriplegia; Z99.11 Dependence on respirator [ventilator] status; G93.1 Anoxic brain damage, not elsewhere classified; E11.621 Type 2 diabetes mellitus with foot ulcer; I13.10 Hypertensive heart and chronic kidney disease without heart failure, with stage 1 through stage 4 chronic kidney disease, or unspecified chronic kidney disease; J96.21 Acute and chronic respiratory failure with hypoxia; N17.0 Acute kidney failure with tubular necrosis; Z93.0 Tracheostomy status; Z93.1 Gastrostomy status; R13.10 Dysphagia, unspecified; D64.9 Anemia, unspecified; E11.22 Type 2 diabetes mellitus with diabetic chronic kidney disease; E11.40 Type 2 diabetes mellitus with diabetic neuropathy, unspecified; E78.00 Pure hypercholesterolemia, unspecified; E78.5 Hyperlipidemia, unspecified; E87.0 Hyperosmolality and hypernatremia; N18.30 Chronic kidney disease, stage 3 unspecified; Z79.899 Other long term (current) drug therapy; K21.9 Gastro-esophageal reflux disease without esophagitis; F32.9 Major depressive disorder, single episode, unspecified; Z20.822 Contact with and (suspected) exposure to COVID-19; G81.90 Hemiplegia, unspecified affecting unspecified side; L30.4 Erythema intertrigo; S00.81XA Abrasion of other part of head, initial encounter; X58.XXXA Exposure to other specified factors, initial encounter; Y92.9 Unspecified place or not applicable; L89.214 Pressure ulcer of right hip, stage 4; L89.154 Pressure ulcer of sacral region, stage 4; L89.314 Pressure ulcer of right buttock, stage 4; L89.224 Pressure ulcer of left hip, stage 4; L89.324 Pressure ulcer of left buttock, stage 4; L97.429 Non-pressure chronic ulcer of left heel and midfoot with unspecified severity; L97.419 Non-pressure chronic ulcer of right heel and midfoot with unspecified severity; M62.462 Contracture of muscle, left lower leg; M62.461 Contracture of muscle, right lower leg; M62.562 Muscle wasting and atrophy, not elsewhere classified, left lower leg; M62.561 Muscle wasting and atrophy, not elsewhere classified, right lower leg; N13.9 Obstructive and reflux uropathy, unspecified; D63.8 Anemia in other chronic diseases classified elsewhere; Z86.73 Personal history of transient ischemic attack (TIA), and cerebral infarction without residual deficits
CPT/HCPCS: 31720; 36415; 36600; 71045-TC; 80048-TC; 80053-TC; 80076-TC; 81001; 82550-TC; 82803-TC; 82962-TC; 83605-TC; 83735-TC; 83970; 84100-TC; 84155; 84165; 84484-TC; 85025-TC; 85730-TC; 87040-TC; 87081-TC; 87086-TC; 87186-TC; 94002-TC; 94003-TC; 94760-TC; 94762-TC; 94799-TC; 99082-TC; A4623; A6248; A6253; A6403; C9113; G0378; J0713; J1644; J1815; J2185; J7030; J7050; J7060; J7070; U0003

== ENCOUNTER 2021-07-31 07:17 | Inpatient (IN) | payer OTHER ==
[~2021-07-31] VITALS: Ht 172.7 cm; Wt 66.8 kg
[~2021-07-31 07:17] MED LIST changes: +ACET-2605 GT; +ACET-868 GT; +ALBU8.5H8 IH; +AMIN30LI2 GT; -ATOR80TA GT; +BACL10TA GT; +BISA10SU11 RC; -BROM5CAP3 GT; -CADE40GE2 TP; -CEFE2FRO IV; +CHLO473M5 MM; -CLON1PAT12 TD; +CRAN3875 GT; -DOCU100C36 GT; +DOCU50LI GT; +EPOE1000 SQ; -ESCI10TA GT; +FERR300L GT; -HEPA100I3 IV/SQ; +HYDR-3980 GT; +HYDR-4077 GT; -LABE100T5 GT; +LANS30CA56 GT; -LINE600T13 GT; -LISI10TA29 GT; +MAGN400O6 GT; +MERO500V23 IV; -MULT-594 GT; +MULT9LIQ6 GT; +NA P133E RC; +NUT.237L31 GT; +NUTR1PAC14 GT; +OMEG-167 PO; +POLY17PO4 GT; +SACC250C GT; +VITA-354 GT; -[UNRECOGNIZED DRUG - CODE] GT
--- NOTE | 2021-07-31 07:30 | NUR ---
RT NOTE, PT. REC. 55 Y OLD MALE TRACH PORTEX # 7 NONE VERBAL PLACED ON VENTILATOR, PER MD ORDER WITH NOTED TRANSPORTER SETTINGS (AC/VC+ RR12, VT500, FIO2 40%, PEEP +5) ALARMS ARE SET AND FUNCTIONAL, B/S RALES BILATERALLY, SUX'D ORALLY AND DEEP TRACHEAL FOR SMALL AMT WHITE SECRETIONS, PT. STABLE ON VENT AND TOLERATING THE SETTINGS, AMBU BAG REMAIN AT THE BEDSIDE. Addendum: 07/31/21 at 0826 by BENSON LEBLANC RT Amended: Links added.
--- NOTE | 2021-07-31 07:30 | NUR ---
BIBRA78. BROUGHT IN FOR TACHYCARDIA NOTED 128 HR. PT HAD RECENT UTI ON 07/18/21. PT NONVERBAL AND OBTUNDED. PT NOTED WITH TRACH; TOLERATING VENT SETTINGS WELL AT 100%: AC 12, TV 500, FIO2 50, PEEP 5. GTUBE NOTED; INTACT. BUE /BLE EXTREMITIES CONTRACTED. SAFETY MEASURES IN PLACE. CONNECTED PT TO POX AND MONITOR.
[2021-07-31] MEDS ORDERED: ACETAMINOPHEN 650 MG/SUPP.RECT RC ONE ×2 (07:47→08:00)
[2021-07-31] MEDS ORDERED: IV NS 0.9% 1,000 ML BAG IV ONE ×2 (08:00)
[2021-07-31 08:09] LABS: BASOPHILS # (AUTO) 0.1 K/uL (0.0-0.2); BASOPHILS % (AUTO) 0.5 % (0.0-2.0); EOSINOPHILS % (AUTO) 0.7 % (0.0-6.0); HEMATOCRIT 25 % (39-51); HEMOGLOBIN 7.9 g/dL (13.5-17.5); LYMPHOCYTES # (AUTO) 0.8 K/uL (0.8-4.8); LYMPHOCYTES % (AUTO) 6.2 % (20.0-44.0); MEAN CORPUSCULAR HGB CONC 31 g/dl (31.0-36.0); MEAN CORPUSCULAR VOLUME 81 fL (80-96); MONOCYTES # (AUTO) 0.8 K/uL (0.1-1.30); MONOCYTES % (AUTO) 5.5 % (2.0-12.0); NEUTROPHILS % (AUTO) 87.1 % (43.0-81.0); PLATELET COUNT (AUTO) 822 K/uL (150-450); WHITE BLOOD COUNT (AUTO) 13.7 K/uL (4.3-11.0)
--- NOTE | 2021-07-31 08:18 | NUR ---
COVID PCR SWAB DONE AND SENT TO THE LAB
[2021-07-31 08:29] LABS: CALCIUM, SERUM 8.5 mg/dL (8.5-10.1); CARBON DIOXIDE 30 mmol/L (21-32); CHLORIDE 96 mmol/L (98-107); CREATININE 1.2 mg/dL (0.6-1.3); GLUCOSE 140 mg/dL (74-106); POTASSIUM 4.2 mmol/L (3.5-5.1); SODIUM SERUM 133 mmol/L (136-145); UREA NITROGEN, BLOOD 51 mg/dL (7-18)
[2021-07-31 08:34] LABS: ALANINE AMINOTRANSFERASE 18 U/L (12-78); ALBUMIN 1.9 g/dL (3.4-5.0); ALKALINE PHOSPHATASE 115 U/L (46-116); ASPARTATE AMINOTRANSFERASE 19 U/L (15-37); BILIRUBIN,DIRECT 0.1 mg/dL (0.0-0.2); BILIRUBIN,TOTAL 0.2 mg/dL (0.2-1.0); TOTAL PROTEIN, SERUM 9.1 g/dL (6.4-8.2)
--- NOTE | 2021-07-31 09:15 | NUR ---
MOVE SHEET SUBMITTED AND CALLED FOR TELE BED.
--- NOTE | 2021-07-31 09:30 | NUR ---
[facility] CALLED CHIEF SCIENTIST PAGED.
--- NOTE | 2021-07-31 10:13 | NUR ---
COVID ANTIGEN SWAB DONE AND SENT TO THE LAB
[2021-07-31] MEDS ORDERED: Z GUARD REMEDY 4 OZ OINT TP PRN (12:00)
[2021-07-31] MEDS ORDERED: MAGNESIUM HYDROXIDE 30 ML UDC PO PRN (12:00)
[2021-07-31] MEDS ORDERED: ONDANSETRON HCL/PF 4 MG/2 ML VIAL IVP PRN (12:00)
[2021-07-31] MEDS ORDERED: NA PHOS,M-B/NA PHOS,DI-BA 1 EA ENEMA RC PRN (12:00)
[2021-07-31] MEDS ORDERED: CLONIDINE HCL 0.1 MG TABLET GT PRN (12:00)
[2021-07-31] MEDS ORDERED: TEMAZEPAM 15 MG CAPSULE PO PRN (12:00)
[2021-07-31] MEDS ORDERED: BISACODYL SUPP (10 MG) 10 MG/SUPP.RECT SUPP.RECT RC PRN (12:00)
[2021-07-31] MEDS ORDERED: HYDROCODONE/APAP 10/325MG TABLET GT PRN (12:00)
[2021-07-31] MEDS ORDERED: GLUCERNA 1.5 1,000 ML BOTTLE GT SCH (12:00)
[2021-07-31] MEDS ORDERED: ACETAMINOPHEN 325 MG TABLET PO PRN (12:00)
[2021-07-31] MEDS ORDERED: MAGNESIUM HYDROXIDE 30 ML UDC GT PRN (12:00)
[2021-07-31] MEDS ORDERED: MAG HYDROX/AL HYDROX/SIMETH 30 ML UDC PO PRN (12:00)
[2021-07-31] MEDS ORDERED: MAG HYDROX/AL HYDROX/SIMETH 30 ML UDC GT PRN (12:05)
--- NOTE | 2021-07-31 12:50 | NUR ---
VERIFIED ORDER: GLUCERNA 1.5 65ML/HR X20 HOURS WITH [facility]. PER [facility], DIETARY DOES NOT HAVE GLUCERNA 1.2. SUGGESTED TO CHANGE ORDER TO GLUCERNA 1.2 @ 65ML/HR CONTINUOUS. NOTIFIED ROSALBA TURCIOS. ORDERS CARRIED OUT AND VERIFIED WITH [facility].
[2021-07-31] MEDS ORDERED: MEROPENEM 500 MG in IV NS 0.9% 50 ML IV SCH (13:00)
[2021-07-31] MEDS ORDERED: GABAPENTIN 100 MG CAPSULE ONE (13:23)
[2021-07-31 13:45] LABS: COLOR,URINE RED (YELLOW)
[2021-07-31] MEDS: GABAPENTIN 100 MG CAPSULE GT SCH ×2 (14:00→21:59)
[2021-07-31] MEDS: PROSOURCE / PROSTAT (PYXIS) 30 ML UDC GT SCH (14:00)
--- NOTE | 2021-07-31 14:29 | NUR ---
ROOM GIVEN 117-1
[2021-07-31] MEDS: GLUCERNA 1.2 1,000 ML BOTTLE GT PRN ×2 (14:30→15:02)
--- NOTE | 2021-07-31 15:25 | NUR ---
PT NOTED WITH BLOODY URINE. FLUSHED F/C WITH 1000CC WITH BLOODY OUTPUT AND NO URINE NOTED. NOTIFIED NAVARRETE ELECTRIC TOOL REPAIRER. STOOL X1 NOTED. CLEANED PT AND WOUND CARE TO SACRUM & BUTTOCKS DONE.
--- NOTE | 2021-07-31 15:35 | NUR ---
PT TAKEN TO CT VIA LASHANDA WITH ACLS PROTOCOL WITH RT
[2021-07-31] MEDS: MEROPENEM 1 G in IV NS 0.9% 100 ML IV SCH ×2 (15:57→21:59)
--- NOTE | 2021-07-31 16:37 | NUR ---
ROOM 104
[2021-07-31] MEDS: VITAMIN E 400 UNIT CAPSULE GT SCH (17:00)
[2021-07-31] MEDS ORDERED: MORPHINE SULFATE INJ 4 MG/ML DISP.SYRIN ONE (17:27)
[2021-07-31] MEDS ORDERED: MORPHINE SULFATE INJ 4 MG/ML DISP.SYRIN IM PRN (17:30)
[2021-07-31] MEDS ORDERED: DOCUSATE SODIUM LIQ 100 MG/10 ML UDC ONE (17:50)
[2021-07-31] MEDS ORDERED: FERROUS SULFATE UDC 300 MG/5 ML UDC ONE (17:50)
[2021-07-31] MEDS ORDERED: Medication Not On Formulary EA (Saccharomyces Boulardii (Florastor) 250 MG) GT SCH (18:00)
[2021-07-31] MEDS: DOCUSATE SODIUM LIQ 100 MG/10 ML UDC GT SCH (18:03)
[2021-07-31] MEDS: FERROUS SULFATE UDC 300 MG/5 ML UDC GT SCH (18:03)
--- NOTE | 2021-07-31 18:15 | NUR ---
DR STONE UROLOGIST AT PT'S BEDSIDE; F/C INSERTED WITH BLOODY URINE OUTPUT
--- NOTE | 2021-07-31 18:25 | NUR ---
R EJ #20G S/L; PATENT AND INTACT. MORPHINE 4MG IVP ADMINISTERED ORDERED FOR PAIN
--- NOTE | 2021-07-31 18:50 | NUR ---
PT TRANSFERRED TO [facility] VIA ACLS PROTOCOL VIA ACLS PROTOCOL WITH RT AND EMT.
[2021-07-31 20:00] VITALS: BP 119/71
--- NOTE | 2021-07-31 20:00 | NUR ---
RN NOTE RECEIVED PATIENT IN BED, OBTUNDED, OPENS EYES. NON-VERBAL. ON TRACH, PORTEX 8. TRACH SETTING, AC: 12, V 500, 02 40%, PEEP 5.0. TOLERATING WELL. NO RESPIRATORY DISTRESS NOTED. SKIN WARM AND DRY. NOTED WITH RIGHT EJ 20G RUNNING NS AT 75 CC/HR. NOTED WITH LEFT WRIST 20G, PATENT. NO INFILTRATION NOTED. NOTED WITH G-TUBE. NO RESIDUAL. SWISH HEARD WHEN FLUSHED WITH 10 CC OF AIR. RUNNING GLUCERNA 1.2 AT 65 CC/HR. HOB ELEVATED 40 DEGREES. NOTED WITH KING CATHETER. INTACT. DRAINING BRIGHT RED BLOOD. BED LOW, IN LOCKED POSITION. CALL LIGHT WITHIN REACH.
[2021-07-31] MEDS: ASCORBIC ACID 500 MG TABLET GT SCH (20:53)
[2021-07-31] MEDS: IV NS 0.9% 1,000 ML IV PRN (20:58)
[2021-07-31] MEDS ORDERED: HEPARIN SODIUM, PORCINE 5000 UNITS/1 ML VIAL SQ SCH (21:00)
[2021-07-31] MEDS: BACLOFEN (10 MG) 10 MG TABLET GT SCH (21:59)
[2021-08-01] VITALS (16 sets, daily range): BP systolic 101–152; BP diastolic 56–85
--- NOTE | 2021-08-01 | NUR ---
RN NOTE PATIENT WITH SCHEDULED 1700 VITAMIN E 400 UNIT CAPSULE, NOT GIVEN BY PRIOR SHIFT. FAXED ORDER TO NURSING CRANE OPERATOR CAB. AWAITING.
--- NOTE | 2021-08-01 03:18 | NUR ---
RN NOTE PER NURSING DIAGNOSTIC IMAGING MANAGER, VITAMIN E NOT AVAILABLE AT THIS TIME
[2021-08-01] MEDS: MEROPENEM 1 G in IV NS 0.9% 100 ML IV SCH ×3 (04:55→20:08)
[2021-08-01] MEDS: GABAPENTIN 100 MG CAPSULE GT SCH ×3 (04:55→20:08)
--- NOTE | 2021-08-01 07:00 | NUR ---
RN NOTE REPORT REC'D FROM TOMMY DELGADILLO. OPEN EYES WHEN NAME IS CALLED. NONVERBAL. ON VENT VIA TRACH WITH SETTING OF AC 12, TV 500, FIO2 40%, PEEP 5.0. TOLERATING WELL. SINUS TACHY ON THE MONITOR. IVF INFUSING WELL TO LEFT EJ. TUBE FEEDING AT 65 CC/HR. WITOUT RESIDUAL. KING TO GRAVITY WITH BLOODY OUTPUT OF 300 AT THIS TIME.MD AWARE. SAFETY MEASURES OBSERVED. WILL CONTINUE TO MONITOR CONDITION.
[2021-08-01 07:22] LABS: CREATININE 1.7 mg/dL (0.6-1.3); MAGNESIUM 2.9 mg/dL (1.8-2.4); PHOSPHORUS 3.4 mg/dL (2.5-4.9); POTASSIUM 4.9 mmol/L (3.5-5.1)
[2021-08-01] MEDS: BACLOFEN (10 MG) 10 MG TABLET GT SCH (08:42)
[2021-08-01] MEDS: PANTOPRAZOLE 40 MG VIAL IV SCH (08:42)
[2021-08-01] MEDS: ACIDOPHILUS/BULGARICUS 1 EACH TAB.CHEW GT SCH (08:42)
[2021-08-01] MEDS: MULTIVIT W/MINERALS 1 TAB TABLET GT SCH (08:42)
[2021-08-01] MEDS: FERROUS SULFATE UDC 300 MG/5 ML UDC GT SCH ×2 (08:43→17:21)
[2021-08-01] MEDS: PROSOURCE / PROSTAT (PYXIS) 30 ML UDC GT SCH (08:43)
[2021-08-01] MEDS: AMLODIPINE BESYLATE 10 MG TABLET GT SCH (08:43)
[2021-08-01] MEDS: DOCUSATE SODIUM LIQ 100 MG/10 ML UDC GT SCH ×2 (08:43→17:21)
[2021-08-01 09:31] LABS: BASOPHILS % (AUTO) 0.2 % (0.0-2.0); EOSINOPHILS % (AUTO) 0.2 % (0.0-6.0); LYMPHOCYTES # (AUTO) 1.2 K/uL (0.8-4.8); LYMPHOCYTES % (AUTO) 6.7 % (20.0-44.0); MEAN CORPUSCULAR HGB CONC 32 g/dl (31.0-36.0); MEAN CORPUSCULAR VOLUME 80 fL (80-96); MONOCYTES # (AUTO) 0.9 K/uL (0.1-1.30); MONOCYTES % (AUTO) 5.2 % (2.0-12.0); NEUTROPHILS # (AUTO) 15.7 K/uL (1.8-8.9); NEUTROPHILS % (AUTO) 87.7 % (43.0-81.0); PLATELET COUNT (AUTO) 622 K/uL (150-450); WHITE BLOOD COUNT (AUTO) 17.9 K/uL (4.3-11.0)
[2021-08-01 09:39] LABS: HEMATOCRIT 19 % (39-51); HEMOGLOBIN 5.9 g/dL (13.5-17.5)
--- NOTE | 2021-08-01 09:45 | NUR ---
RN NOTE CRITICAL LAB VALUES REC'D FROM DAVID/CED OF H/H 5.04/22. NOTIFIED ATM NAVARRETE WITH ORDER TO TRANSFUSE.
[2021-08-01] MEDS: VITAMIN E 400 UNIT CAPSULE GT SCH ×2 (09:52→17:21)
[2021-08-01] MEDS: IV NS 0.9% 1,000 ML IV PRN (10:55)
[2021-08-01 12:06] LABS: BAND % (MANUAL) 1 % (0.0-5.0); LYMPHOCYTES % (MANUAL) 7 % (16-48); NEUTROPHILS % (MANUAL) 87 (42-76)
[2021-08-01 12:07] LABS: MONOCYTES % (MANUAL) 4 % (0-11.0); MYELOCYTES % 1 % (0-0)
[2021-08-01] MEDS: EPOETIN ALFA-EPBX 10,000 UNIT/ML VIAL SQ SCH (12:40)
--- NOTE | 2021-08-01 14:00 | NUR ---
RN NOTE PRBC NOT READY OF THIS TIME.
[2021-08-01] MEDS: ASCORBIC ACID 500 MG TABLET GT SCH (17:21)
--- NOTE | 2021-08-01 17:59 | NUR ---
spoke with aicha from blood bank still pending.
--- NOTE | 2021-08-01 18:15 | NUR ---
RN NOTE BLOOD BANK CALLED. 2 UNITS PRBC READY.
--- NOTE | 2021-08-01 18:51 | NUR ---
RN NOTE PTS CONDITION REMAINS UNCHANGED. NO SOB. ON VENT WITH SAME SETTING. TOLERATING WELL. GT FEEDING AT 65 CCHR. NO GASTRIC RESIDUAL. GT SITE DRG CHANGED. ST ON THE MONITOR. REPOSITIONED PT Q2 HR. TRACH SITE CLEANED AND DRG CHANGED. IVF INFUSING WELL TO RIGHT EJ. PT IS TO RECEIVE 2 UNITS PRBC. TO OBTAIN URINE FOR UA. SAFETY PRECAUTIONS OBSERVED. WILL ENDORSE CARE TO NOC RN
[2021-08-01] MEDS: ACETAMINOPHEN 325 MG TABLET MC PRN (20:09)
[2021-08-02] VITALS (10 sets, daily range): BP systolic 117–142; BP diastolic 69–89
--- NOTE | 2021-08-02 02:30 | NUR ---
RN NOTE PT IS S/P 2 UNITS PRBC NO REACTIONS NOTED, PT TOLERATED WELL
[2021-08-02] MEDS: GABAPENTIN 100 MG CAPSULE GT SCH ×3 (05:17→21:03)
[2021-08-02 07:01] LABS: BASOPHILS % (AUTO) 0.2 % (0.0-2.0); EOSINOPHILS % (AUTO) 0.1 % (0.0-6.0); HEMATOCRIT 28 % (39-51); LYMPHOCYTES # (AUTO) 0.7 K/uL (0.8-4.8); LYMPHOCYTES % (AUTO) 4.6 % (20.0-44.0); MEAN CORPUSCULAR HGB CONC 32 g/dl (31.0-36.0); MEAN CORPUSCULAR VOLUME 83 fL (80-96); MONOCYTES # (AUTO) 0.9 K/uL (0.1-1.30); MONOCYTES % (AUTO) 5.9 % (2.0-12.0); NEUTROPHILS # (AUTO) 13.7 K/uL (1.8-8.9); NEUTROPHILS % (AUTO) 89.2 % (43.0-81.0); PLATELET COUNT (AUTO) 660 K/uL (150-450); RED BLOOD CELL COUNT(AUTO) 3.32 MIL/uL (4.5-6.0); WHITE BLOOD COUNT (AUTO) 15.4 K/uL (4.3-11.0)
[2021-08-02 07:05] LABS: CALCIUM, SERUM 8.2 mg/dL (8.5-10.1); CREATININE 1.4 mg/dL (0.6-1.3); POTASSIUM 4.4 mmol/L (3.5-5.1)
[2021-08-02 07:23] LABS: BILIRUBIN,URINE LARGE (NEGATIVE); COLOR,URINE RED (YELLOW); LEUKOCYTE ESTERASE ,URINE LARGE (NEGATIVE); NITRITE, URINE POSITIVE (NEGATIVE); PH,URINE 6.5 (5.0-8.0); PROTEIN,URINE >=300 mg/dl (NEGATIVE); UGLUCOSE NEGATIVE (NEGATIVE)
--- NOTE | 2021-08-02 07:36 | NUR ---
RN NOTE CLOSING PT STABLE. NO CHANGES IN CONDITION NOTED. REPORT GIVEN TO DAY SHIFT FOR CONTINUATION OF CARE.
--- NOTE | 2021-08-02 07:50 | NUR ---
ORDERLY OPENING NOTES RECEIVED PATIENT IN BED, EYES CLOSED, ON VENT, NON-VERBAL. PATIENT TOLERATING VENT SETTINGS WELL AT THIS TIME; BREATHING EVEN AND UNLABORED; NO SOB NOTED. TELE MONITOR WITH A CURRENT READING OF ST 100. NO S/S OF PAIN SUCH FACIAL GRIMACING, MOANING OR GUARDING NOTED. SANDI MIDLINE IN PLACE RUNNING NS AT 75MLS/HR. KING CATH IN PLACE WITH 1000 MLS OUTPUT OF BROWN URINE. G-TUBE PRESENT RUNNING GLUCERNA AT 65 MLS/HR. SAFETY PRECAUTIONS IN PLACE: BED IN LOW POSITION AND LOCKED, HOB ELEVATED AT 70%, RAILS UP X2, CALL LIGHT WITHIN REACH. WILL CONTINUE TO MONITOR PATIENT.
--- NOTE | 2021-08-02 08:32 | NUR ---
WOUND CARE CONSULT: REVIEWED CHART, NURSING DOCUMENTATION AND PHOTOS WHICH INDICATE MULTIPLE WOUNDS PRESENT ON ADMISSION. DR LYON AND DR BLANKENSHIP NOTIFIED OF SURGICAL AND DPM CONSULT REQUESTS. RECOMMENDATIONS MADE FOR SKIN PROTECTION. DISCUSSED WITH NURSING STAFF. FIRST STEP LOW AIRLOSS MATTRESS IS ON ORDER.
[2021-08-02] MEDS: MEROPENEM 1 G in IV NS 0.9% 100 ML IV SCH ×3 (08:37→20:56)
[2021-08-02] MEDS: PANTOPRAZOLE 40 MG VIAL IV SCH (08:39)
[2021-08-02] MEDS: MULTIVIT W/MINERALS 1 TAB TABLET GT SCH (08:40)
[2021-08-02] MEDS: VITAMIN E 400 UNIT CAPSULE GT SCH ×2 (08:41→17:10)
[2021-08-02] MEDS: AMLODIPINE BESYLATE 10 MG TABLET GT SCH (08:41)
[2021-08-02] MEDS: FERROUS SULFATE UDC 300 MG/5 ML UDC GT SCH ×2 (08:41→17:10)
[2021-08-02] MEDS: DOCUSATE SODIUM LIQ 100 MG/10 ML UDC GT SCH ×2 (08:41→17:10)
[2021-08-02] MEDS: ACIDOPHILUS/BULGARICUS 1 EACH TAB.CHEW GT SCH (08:41)
[2021-08-02] MEDS ORDERED: HYDROGEL DRESSING 90 GM TUBE TP PRN (09:00)
[2021-08-02] MEDS: HYDROGEL DRESSING 90 GM TUBE TP SCH (09:02)
[2021-08-02 10:41] LABS: RBC,URINE TOO NUMEROUS TO COUN /HPF (0-2)
[2021-08-02 10:43] LABS: BACTERIA,URINE Few /HPF (None Seen); SQUAMOUS EPITHELIAL CELL,UR Rare /HPF (None Seen)
[2021-08-02] MEDS: ACETAMINOPHEN 325 MG TABLET MC PRN (11:13)
--- NOTE | 2021-08-02 11:18 | NUR ---
FAMILY CENTERED SPECIALIST NOTES PATIENT NOTED WITH FEVER 100.4. PRN TYLENOL ADMINISTERED.
[2021-08-02] MEDS ORDERED: MEROPENEM 1 G in IV NS 0.9% 100 ML IV SCH (12:30)
[2021-08-02] MEDS: IV NS 0.9% 1,000 ML IV PRN (12:47)
[2021-08-02] MEDS ORDERED: GLUCERNA 1.2 1,000 ML BOTTLE NG SCH (14:30)
[2021-08-02] MEDS: GLUCERNA 1.2 1,000 ML BOTTLE GT PRN (16:00)
[2021-08-02] MEDS: ASCORBIC ACID 500 MG TABLET GT SCH (17:10)
--- NOTE | 2021-08-02 18:45 | NUR ---
COLLECTION CARD CLERK CLOSING NOTES PATIENT REMAINS IN BED, EYES CLOSED, ON VENT, NON-VERBAL. PATIENT TOLERATING VENT SETTINGS WELL DURING SHIFT; BREATHING EVEN AND UNLABORED; NO SOB NOTED. TELE MONITOR WITH A CURRENT READING OF SR 74. NO S/S OF PAIN SUCH FACIAL GRIMACING, MOANING OR GUARDING NOTED. SANDI MIDLINE IN PLACE RUNNING NS AT 75MLS/HR. KING CATH IN PLACE WITH 2000 MLS OUTPUT OF BROWN URINE DURING SHIFT. G-TUBE PRESENT RUNNING GLUCERNA AT 65 MLS/HR. ALL NEEDS ATTENDED DURING THE DAY. DRESSING CHANGED. PATIENT CLEAN AND DRY. SAFETY PRECAUTIONS IN PLACE: BED IN LOW POSITION AND LOCKED, HOB ELEVATED AT 70%, RAILS UP X2, CALL LIGHT WITHIN REACH. WILL ENDORSE TO FIRE POT OPERATOR NURSE FOR OSMANY.
--- NOTE | 2021-08-02 20:00 | NUR ---
RECEIVED PATIENT SLEEP IN BED COMFORTABLY, BED IN LOW POSITION, CALL LIGHTS WITHIN REACH, NO COMPLAIN OF PAIN AND DISCOMFORT AT THIS TIME, ON TELE MONITORING SR, NO SYMPTOMS OBSERVED, ON MECHANICAL VENT, SATURATING WELL, ON NGT GLUCERNA 1.2@60ML/HR INFUSING WELL, ON KING CATHETER WITH 60ML OUTPUT, PATIENT IS CONTRACTURE TURN FROM SIDE TO SIDE, PATIENT KEPT CLEAN AND DRY, ALL NEEDS MET, WILL CONTINUE TO MONITOR.
[2021-08-03] VITALS: BP 124/70
[2021-08-03 04:00] VITALS: BP 122/69
[2021-08-03] MEDS: MEROPENEM 1 G in IV NS 0.9% 100 ML IV SCH ×3 (05:03→20:35)
[2021-08-03] MEDS: GABAPENTIN 100 MG CAPSULE GT SCH ×3 (05:04→20:35)
--- NOTE | 2021-08-03 05:45 | NUR ---
RN CLOSING NOTES: PATIENT SLEEP IN BED COMFORTABLY, HOB AT 30-45 DEGREE, NO COMPLAIN OF PAIN AND OR ANY FACIAL GRIMACING WAS OBSERVED, PATIENT ON NPO, G TUBE FEEDING WITH GLUCERNA 1.2 @60ML PER HOUR INFUSING WELL, WITH REJ AND SANDI MIDLINE WITH ONGOING 0.9NSS @60ML PER/HR INFUSING WELL, ON KING CATHETER WITH PRESENT OF GROSS HEMATURIA ABOUT 250CC OF URINE OUTPUT ON MONITORING FOR BLEEDING AND HOLD ANY ANTI COAGULANT, PATIENT KEPT CLEAN AND DRY ALL NEEDS MET ENDORSE TO INCOMING SHIFT.
[2021-08-03 06:56] LABS: BASOPHILS # (AUTO) 0.1 K/uL (0.0-0.2); BASOPHILS % (AUTO) 1.1 % (0.0-2.0); EOSINOPHILS % (AUTO) 3.1 % (0.0-6.0); HEMATOCRIT 24 % (39-51); LYMPHOCYTES # (AUTO) 0.9 K/uL (0.8-4.8); MEAN CORPUSCULAR HGB CONC 33 g/dl (31.0-36.0); MEAN CORPUSCULAR VOLUME 84 fL (80-96); MONOCYTES # (AUTO) 0.6 K/uL (0.1-1.30); MONOCYTES % (AUTO) 9.4 % (2.0-12.0); NEUTROPHILS # (AUTO) 4.3 K/uL (1.8-8.9); NEUTROPHILS % (AUTO) 71.4 % (43.0-81.0); PLATELET COUNT (AUTO) 513 K/uL (150-450); RED BLOOD CELL COUNT(AUTO) 2.88 MIL/uL (4.5-6.0)
[2021-08-03 07:25] LABS: CALCIUM, SERUM 8.7 mg/dL (8.5-10.1); CREATININE 1.2 mg/dL (0.6-1.3); POTASSIUM 4.3 mmol/L (3.5-5.1)
--- NOTE | 2021-08-03 07:42 | NUR ---
COMB TENDER OPENING NOTES RECEIVED PATIENT IN BED SLEEPING COMFORTABLY, BED IN LOW POSITION, CALL LIGHTS WITHIN REACH, NO SOB, NOT IN DESTRESS, NO COMPLAINTS OF PAIN AND DISCOMFORT AT THIS TIME, ON TELE MONITORING SR, NO SYMPTOMS OBSERVED, ON MECHANICAL VENT, SATURATING WELL, ON NGT GLUCERNA 1.2@60ML/HR INFUSING WELL, ON KING CATHETER WITH 60ML OUTPUT, PATIENT IS CONTRACTURE TURN FROM SIDE TO SIDE, PATIENT KEPT CLEAN AND DRY, ALL NEEDS MET, WILL CONTINUE TO MONITOR.
[2021-08-03 08:00] VITALS: BP 126/72
[2021-08-03] MEDS: MULTIVIT W/MINERALS 1 TAB TABLET GT SCH (08:13)
[2021-08-03] MEDS: FERROUS SULFATE UDC 300 MG/5 ML UDC GT SCH ×2 (08:13→17:09)
[2021-08-03] MEDS: ACIDOPHILUS/BULGARICUS 1 EACH TAB.CHEW GT SCH (08:13)
[2021-08-03] MEDS: PANTOPRAZOLE 40 MG VIAL IV SCH (08:13)
[2021-08-03] MEDS: DOCUSATE SODIUM LIQ 100 MG/10 ML UDC GT SCH ×2 (08:13→17:09)
[2021-08-03] MEDS: AMLODIPINE BESYLATE 10 MG TABLET GT SCH (08:14)
[2021-08-03] MEDS: VITAMIN E 400 UNIT CAPSULE GT SCH ×2 (08:16→17:10)
[2021-08-03] MEDS: HYDROGEL DRESSING 90 GM TUBE TP SCH (08:43)
[2021-08-03] MEDS: IV NS 0.9% 1,000 ML IV PRN (09:29)
[2021-08-03 12:00] VITALS: BP 137/73
[2021-08-03] MEDS: EPOETIN ALFA-EPBX 10,000 UNIT/ML VIAL SQ SCH (12:29)
[2021-08-03] MEDS: GLUCERNA 1.2 1,000 ML BOTTLE GT PRN (14:38)
[2021-08-03 16:00] VITALS: BP 142/79
[2021-08-03] MEDS: ASCORBIC ACID 500 MG TABLET GT SCH (17:10)
--- NOTE | 2021-08-03 18:54 | NUR ---
STOCK SHAPER CLOSING NOTES PATIENT IN BED SLEEPING COMFORTABLY, BED IN LOW POSITION, CALL LIGHTS WITHIN REACH, NO SOB, NOT IN DISTRESS, NO COMPLAINTS OF PAIN AND DISCOMFORT AT THIS TIME, ON TELE MONITORING SR, NO SYMPTOMS OBSERVED, ON MECHANICAL VENT, SATURATING WELL, ON NGT GLUCERNA 1.2@60ML/HR INFUSING WELL, ON KING CATHETER WITH 60ML OUTPUT, PATIENT IS CONTRACTURE TURN FROM SIDE TO SIDE, PATIENT KEPT CLEAN AND DRY, ALL NEEDS MET, WILL ENDORSE TO MANAGER LIFE SCIENCES NURSE.
--- NOTE | 2021-08-03 19:30 | NUR ---
signaling design engineer opening notes Pt is resting in bed comfortably. Pt is nonverbal and able to open eyes. Pt is mec. vent with saturation 100%. No SOB. No S/S of distress noted. Tele monitor showed SR/ S. martha 58. IV site at SANDI midline is clean, intact and infusing well NS@ 75 ml/hr. R jugular vein is clean, and intact. Gtube feeding running glucerna @ 60 ml/hr. Lee cath is intact and draining hematuria. Safety precautions is maintained. Bed at low position, brakes locked, side railsupX3, hob elevated and call light is within reach. Will continue to monitor.
[2021-08-03 20:00] VITALS: BP 135/87
[2021-08-04] VITALS: BP 125/82
[2021-08-04 04:00] VITALS: BP 141/78
[2021-08-04] MEDS: GLUCERNA 1.2 1,000 ML BOTTLE GT PRN (04:02)
[2021-08-04] MEDS: MEROPENEM 1 G in IV NS 0.9% 100 ML IV SCH ×3 (05:33→20:02)
[2021-08-04] MEDS: GABAPENTIN 100 MG CAPSULE GT SCH ×3 (05:33→21:27)
--- NOTE | 2021-08-04 06:47 | NUR ---
foreign collection clerk closing notes Pt is resting in bed comfortably. Pt is nonverbal and able to open eyes. Pt is mec. vent with saturation 100%. No SOB. No S/S of distress noted. VS is stable. Tele monitor showed SR hr at 60. IV site at SANDI midline is clean, intact and infusing well NS@ 75 ml/hr. R jugular vein is clean, and intact. Gtube feeding running glucerna @ 60 ml/hr with 0 residual. Pt tolerated well. Lee cath is intact and draining hematuria 1300 ml. Routine meds were given as ordered. Kept Pt clean, dry and comfortable. All needs met and attended. Safety precautions is maintained. Bed at low position, brakes locked, side railsupX3, hob elevated and call light is within reach. Will endorse to am nurse for OSMANY.
--- NOTE | 2021-08-04 07:50 | NUR ---
RN OPENING NOTE- RECEIVED PATIENT IN BED SLEEPING COMFORTABLY, BED IN LOW POSITION, CALL LIGHT WITHIN REACH, NO SOB, RT AT BEDSIDE ON TELE MONITORING SR, NO SYMPTOMS OBSERVED, ON MECHANICAL VENT, SATURATING WELL, ON NGT GLUCERNA 1.2@60ML/HR INFUSING WELL, ON KING CATHETER WITH HEMATURIA NOTED, PATIENT IS CONTRACTURED TURN FROM SIDE TO SIDE, PATIENT KEPT CLEAN AND DRY, ALL NEEDS MET, WILL CONTINUE TO MONITOR.
[2021-08-04 08:00] VITALS: BP 152/83
[2021-08-04] MEDS: ACIDOPHILUS/BULGARICUS 1 EACH TAB.CHEW GT SCH (08:46)
[2021-08-04] MEDS: VITAMIN E 400 UNIT CAPSULE GT SCH ×2 (08:46→16:54)
[2021-08-04] MEDS: DOCUSATE SODIUM LIQ 100 MG/10 ML UDC GT SCH ×2 (08:46→16:54)
[2021-08-04] MEDS: FERROUS SULFATE UDC 300 MG/5 ML UDC GT SCH ×2 (08:46→16:54)
[2021-08-04] MEDS: PANTOPRAZOLE 40 MG/PACK PACK GT SCH (08:47)
[2021-08-04] MEDS: MULTIVIT W/MINERALS 1 TAB TABLET GT SCH (08:47)
[2021-08-04] MEDS: HYDROGEL DRESSING 90 GM TUBE TP SCH (08:47)
[2021-08-04] MEDS: AMLODIPINE BESYLATE 10 MG TABLET GT SCH (08:47)
[2021-08-04 12:00] VITALS: BP 144/70
[2021-08-04 16:00] VITALS: BP 152/86
[2021-08-04] MEDS: ASCORBIC ACID 500 MG TABLET GT SCH (17:42)
--- NOTE | 2021-08-04 18:53 | NUR ---
RN CLOSING NOTE- PT IN BED, BED IN LOW POSITION, CALL LIGHT WITHIN REACH, NO SOB, NOT IN DISTRESS, ON TELE MONITORING SR, NO SYMPTOMS OBSERVED, ON MECHANICAL VENT, SATURATING WELL, ON NGT GLUCERNA 1.2@60ML/HR INFUSING WELL, ON KING CATHETER, PATIENT IS CONTRACTURED TURN FROM SIDE TO SIDE, PATIENT KEPT CLEAN AND DRY, ALL NEEDS MET, WILL CONTINUE TO MONITOR. WOUND CARE COMPLETED.
[2021-08-04 20:00] VITALS: BP 142/72
[2021-08-04] MEDS: IV NS 0.9% 1,000 ML IV PRN (20:02)
[2021-08-04] MEDS: ACETAMINOPHEN 325 MG TABLET MC PRN (21:27)
[2021-08-05] VITALS: BP 143/69
[2021-08-05] MEDS: GLUCERNA 1.2 1,000 ML BOTTLE GT PRN ×2 (01:26→22:00)
[2021-08-05 04:00] VITALS: BP 143/76
[2021-08-05] MEDS: MEROPENEM 1 G in IV NS 0.9% 100 ML IV SCH ×3 (05:50→21:31)
[2021-08-05] MEDS: GABAPENTIN 100 MG CAPSULE GT SCH ×3 (05:51→21:31)
--- NOTE | 2021-08-05 06:32 | NUR ---
RN CLOSING NOTES Overnight patient has been SB in low 40s and low 50s while asleep, 38 at lowest point. When awake after 0600 pts heart rate has consistently been in low 60s. O2 at 98-100% throughout night. x1 BM, 1600cc clear urine output to marina. Tolerating IV abx well no ase. Wound care provided, turn q2h, kept clean and dry. SANDI midline NS at 75cc/hr. Glucerna 1.2 at 65cc/hr to G-tube.
--- NOTE | 2021-08-05 07:32 | NUR ---
AMMONIA SOLUTION PREPARER OPENING NOTES RECEIVED PATIENT IN BED SLEEPING COMFORTABLY, PATIENT IS NON VERBAL, ON MECHANICAL VENT TOLERATING SETTINGS WELL, IN NO ACUTE DISTRESS NOTED. ON TELE MONITOR SHOWING SR HR AT 66. IV ACCESS ON SANDI MIDLINE, ONGOING NS AT 75 CC/HR, INFUSING WELL, NO S/SX OF INFILTRATION NOTED. RIGHT EJ CATH NOTED. ON G-TUBE FEEDING IN PLACE, ONGOING FEEDING OF GLUCERNA 1.2 AT 65 CC/HR. TOLERATING WELL, NO RESIDUAL NOTED. SAFETY PRECAUTIONS IN PLACE: BED ON LOWEST LOCKED POSITION, SIDE RAILS UP X 2, CALL LIGHT WITHIN EASY REACH. WILL CONTINUE TO MONITO ACCORDINGLY.
[2021-08-05 08:00] VITALS: BP 150/83
[2021-08-05 08:04] LABS: CALCIUM, SERUM 8.7 mg/dL (8.5-10.1); CREATININE 1.1 mg/dL (0.6-1.3); POTASSIUM 4.2 mmol/L (3.5-5.1)
[2021-08-05 08:11] LABS: BASOPHILS # (AUTO) 0.1 K/uL (0.0-0.2); EOSINOPHILS % (AUTO) 4.8 % (0.0-6.0); HEMATOCRIT 28 % (39-51); HEMOGLOBIN 8.7 g/dL (13.5-17.5); LYMPHOCYTES # (AUTO) 1.2 K/uL (0.8-4.8); LYMPHOCYTES % (AUTO) 18.9 % (20.0-44.0); MEAN CORPUSCULAR HGB CONC 32 g/dl (31.0-36.0); MEAN CORPUSCULAR VOLUME 85 fL (80-96); MONOCYTES # (AUTO) 0.4 K/uL (0.1-1.30); MONOCYTES % (AUTO) 6.2 % (2.0-12.0); NEUTROPHILS # (AUTO) 4.5 K/uL (1.8-8.9); NEUTROPHILS % (AUTO) 69.1 % (43.0-81.0); PLATELET COUNT (AUTO) 541 K/uL (150-450); RED BLOOD CELL COUNT(AUTO) 3.23 MIL/uL (4.5-6.0); WHITE BLOOD COUNT (AUTO) 6.6 K/uL (4.3-11.0)
[2021-08-05] MEDS: DOCUSATE SODIUM LIQ 100 MG/10 ML UDC GT SCH ×2 (08:38→16:22)
[2021-08-05] MEDS: PANTOPRAZOLE 40 MG/PACK PACK GT SCH (08:38)
[2021-08-05] MEDS: MULTIVIT W/MINERALS 1 TAB TABLET GT SCH (08:38)
[2021-08-05] MEDS: FERROUS SULFATE UDC 300 MG/5 ML UDC GT SCH ×2 (08:38→16:22)
[2021-08-05] MEDS: VITAMIN E 400 UNIT CAPSULE GT SCH ×2 (08:38→16:22)
[2021-08-05] MEDS: AMLODIPINE BESYLATE 10 MG TABLET GT SCH (08:38)
[2021-08-05] MEDS: ACIDOPHILUS/BULGARICUS 1 EACH TAB.CHEW GT SCH (08:38)
[2021-08-05] MEDS: HYDROGEL DRESSING 90 GM TUBE TP SCH (09:18)
[2021-08-05] MEDS: ENOXAPARIN SODIUM 40 MG/0.4 ML DISP.SYRIN SQ SCH (10:49)
[2021-08-05 12:00] VITALS: BP 148/76
[2021-08-05 16:00] VITALS: BP 143/73
[2021-08-05] MEDS: ASCORBIC ACID 500 MG TABLET GT SCH (17:38)
[2021-08-05 20:00] VITALS: BP 143/73
--- NOTE | 2021-08-05 22:27 | NUR ---
GRINDING WHEEL FACER NOTE ENDORSED TO NURSE LEMONS FOR CONTINUE TO CARE.
[2021-08-06] VITALS (7 sets, daily range): BP systolic 118–148; BP diastolic 60–88
--- NOTE | 2021-08-06 07:46 | NUR ---
ANGLE SHEAR SET UP OPERATOR CLOSING NOTES PATIENT IN BED SLEEPING COMFORTABLY, PATIENT IS NON VERBAL, ON MECHANICAL VENT TOLERATING SETTINGS WELL, IN NO ACUTE DISTRESS NOTED. ON TELE MONITOR SHOWING SR HR AT 68. IV ACCESS ON SANDI MIDLINE, ONGOING NS AT 75 CC/HR, INFUSING WELL, NO S/SX OF INFILTRATION NOTED. RIGHT EJ CATH NOTED. ON G-TUBE FEEDING IN PLACE, ONGOING FEEDING OF GLUCERNA 1.2 AT 65 CC/HR. TOLERATING WELL, NO RESIDUAL NOTED. SAFETY PRECAUTIONS IN PLACE: BED ON LOWEST LOCKED POSITION, SIDE RAILS UP X 2, CALL LIGHT WITHIN EASY REACH. ALL NEEDS ATTENDED AND MET, WOUND CARE DONE ORDERED, DUE MEDS GIVEN ORDERED. WILL ENDORSE TO ONCOMING SHIFT FOR OSMANY.
--- NOTE | 2021-08-06 07:47 | NUR ---
RN OPENING NOTES RECEIVED PATIENT IN BED SLEEPING COMFORTABLY, PATIENT IS NON VERBAL, ON MECHANICAL VENT TOLERATING SETTINGS WELL, IN NO ACUTE DISTRESS NOTED. ON TELE MONITOR SHOWING SR HR AT 70. IV ACCESS ON SANDI MIDLINE, PATENT AND INTACT, ONGOING NS AT 75 CC/HR, INFUSING WELL, NO S/SX OF INFILTRATION NOTED. ON G-TUBE FEEDING IN PLACE, ONGOING FEEDING OF GLUCERNA 1.2 AT 65 CC/HR. TOLERATING WELL, NO RESIDUAL NOTED. SAFETY PRECAUTIONS IN PLACE: BED ON LOWEST LOCKED POSITION, SIDE RAILS UP X 2, CALL LIGHT WITHIN EASY REACH. WILL CONTINUE TO MONITOR ACCORDINGLY.
[2021-08-06 08:29] LABS: CREATININE 1.1 mg/dL (0.6-1.3); POTASSIUM 4.2 mmol/L (3.5-5.1)
[2021-08-06] MEDS: DOCUSATE SODIUM LIQ 100 MG/10 ML UDC GT SCH ×2 (08:35→16:30)
[2021-08-06] MEDS: ENOXAPARIN SODIUM 40 MG/0.4 ML DISP.SYRIN SQ SCH (08:38)
[2021-08-06] MEDS: AMLODIPINE BESYLATE 10 MG TABLET GT SCH (08:38)
[2021-08-06] MEDS: ACIDOPHILUS/BULGARICUS 1 EACH TAB.CHEW GT SCH (08:39)
[2021-08-06] MEDS: FERROUS SULFATE UDC 300 MG/5 ML UDC GT SCH ×2 (08:39→16:30)
[2021-08-06] MEDS: VITAMIN E 400 UNIT CAPSULE GT SCH ×2 (08:39→16:30)
[2021-08-06] MEDS: MULTIVIT W/MINERALS 1 TAB TABLET GT SCH (08:39)
[2021-08-06] MEDS: PANTOPRAZOLE 40 MG/PACK PACK GT SCH (08:39)
[2021-08-06 08:49] LABS: BASOPHILS # (AUTO) 0.1 K/uL (0.0-0.2); BASOPHILS % (AUTO) 0.9 % (0.0-2.0); EOSINOPHILS % (AUTO) 6.4 % (0.0-6.0); HEMATOCRIT 29 % (39-51); HEMOGLOBIN 9.3 g/dL (13.5-17.5); LYMPHOCYTES # (AUTO) 1.2 K/uL (0.8-4.8); LYMPHOCYTES % (AUTO) 19.1 % (20.0-44.0); MEAN CORPUSCULAR HGB CONC 32 g/dl (31.0-36.0); MEAN CORPUSCULAR VOLUME 84 fL (80-96); MONOCYTES # (AUTO) 0.4 K/uL (0.1-1.30); MONOCYTES % (AUTO) 6.8 % (2.0-12.0); NEUTROPHILS # (AUTO) 4.1 K/uL (1.8-8.9); NEUTROPHILS % (AUTO) 66.8 % (43.0-81.0); PLATELET COUNT (AUTO) 557 K/uL (150-450); RED BLOOD CELL COUNT(AUTO) 3.41 MIL/uL (4.5-6.0); WHITE BLOOD COUNT (AUTO) 6.2 K/uL (4.3-11.0)
[2021-08-06] MEDS: HYDROGEL DRESSING 90 GM TUBE TP SCH (08:53)
[2021-08-06] MEDS: GLUCERNA 1.2 1,000 ML BOTTLE GT PRN (11:26)
[2021-08-06] MEDS: EPOETIN ALFA-EPBX 10,000 UNIT/ML VIAL SQ SCH (12:07)
--- NOTE | 2021-08-06 12:32 | NUR ---
RN NOTE PATIENT TRANSFERRED TO [facility] IN STABLE CONDITION WITH RT AND PET HANDLER. NO SOB OR ANY ACUTE DISTRESS NOTED DURING TRANSFER. NOON MEDS GIVEN, TOLERATED WELL. CONSENT SIGNED FOR CT CYSTOGRAM IN PATIENT CHART. REPORT GIVEN TO YAKELIN DELGADILLO.
--- NOTE | 2021-08-06 12:46 | NUR ---
BUSINESS TECHNOLOGY ANALYST NOTES PT TRANSFERRED FROM [facility] TO 325-2 AT 1225 VIA HIS BED ACCOMPANIED BY RN ANNABELLA AND RT PATTI. PT IS AWAKE AND NON VERBAL. RESPONSIVE TO TACTILE AND PAIN STIMULI. PT WITH TRACH PORTEX # 7 CONNECTED TO MECHANICAL VENT AT PRESCRIBED PARAMETERS OF TV 500 AC 12 FIO2 30% AND PEEP 5, TOLERATING SETTINGS WELL WITH NO ACUTE RESPIRATORY DISTRESS NOTED. ON TELE MONITOR SHOWING NSR WITH OCCASIONAL PVC'S, HR ON THE 80'S. IV ACCESS ON SANDI MIDLINE INTACT WITH NS AT 75 CC/HR INFUSING WELL, NO S/SX OF INFILTRATION NOTED. PT ALSO HAS RIGHT EJ IV ACCESS INTACT AND PATENT. PT ON G-TUBE FEEDING OF GLUCERNA 1.2 AT 65 CC/HR. TOLERATING WELL, NO RESIDUAL NOTED. SKIN NOTED WITH MULTIPLE WOUNDS ON SACRUM, B/L BUTTOCKS, LIP HIP AND ALSO MULTIPLE SCABS ON B/L LOWER EXTREMITIES, ALL WOUNDS DRESSING CHANGED AND KEPT IN PLACED. PT HAS BLE AND BUE EXTREMITIES CONTRACTED AND STIFF, BLE ELEVATED WITH PILLOWS. SAFETY PRECAUTIONS IN PLACE: BED ON LOWEST LOCKED POSITION, SIDE RAILS UP X 3, CALL LIGHT WITHIN EASY REACH. WILL CONTINUE TO MONITOR PT ACCORDINGLY.
[2021-08-06] MEDS: MEROPENEM 1 G in IV NS 0.9% 100 ML IV SCH ×2 (13:05→20:54)
[2021-08-06] MEDS ORDERED: IOHEXOL-300 100 ML VIAL IV ONE (14:10)
[2021-08-06] MEDS: GABAPENTIN 100 MG CAPSULE GT SCH ×2 (14:20→20:54)
[2021-08-06] MEDS ORDERED: IV NS 0.9% 250 ML IV ONE (14:37)
--- NOTE | 2021-08-06 15:20 | NUR ---
RN NOTES PATIENT WHEELED TO CT DEPT FOR CT OF PELVIS/CT UROGRAM. PT TOLERATED PROCEDURE W/O PROBLEM. PT WHEELED BACK TO UNIT WITH RT PATTI AND RAY PERALTA.
[2021-08-06] MEDS: IV NS 0.9% 1,000 ML IV PRN (16:33)
[2021-08-06] MEDS: ASCORBIC ACID 500 MG TABLET GT SCH (17:03)
--- NOTE | 2021-08-06 17:42 | NUR ---
RN NOTES REPORTED TO DR NAVARRETE RESULTS OF PELVIS CT THAT WAS DONE THIS AFTERNOON AND HE STATED THAT HE WILL FORWARD THE RESULTS TO DR STONE.
--- NOTE | 2021-08-06 18:46 | NUR ---
FLIGHT MECHANIC CLOSING NOTES PT IN BED LYING AT MODERATE HIGH BACKREST POSITION. OPEN HIS EYES, NON VERBAL, RESPONSIVE TO TACTILE AND PAIN STIMULI. PT WITH TRACH PORTEX # 7 CONNECTED TO MECHANICAL VENT AT PRESCRIBED PARAMETERS OF TV 500 AC 12 FIO2 30% AND PEEP 5, TOLERATING SETTINGS WELL WITH NO ACUTE RESPIRATORY DISTRESS NOTED. ON TELE MONITOR SHOWING NSR AT THIS TIME, HR ON THE 70'S. SANDI MIDLINE INTACT WITH NS @ 75 CC/HR INFUSING WELL, NO S/SX OF INFILTRATION NOTED. PT ALSO HAS RIGHT EJ IV ACCESS INTACT AND PATENT. PT ON G-TUBE FEEDING OF GLUCERNA 1.2 AT 65 CC/HR. TOLERATING WELL, NO RESIDUAL NOTED. ASPIRATION PRECAUTIONS MAINTAINED. PT TURNED AND REPOSITIONED Q 2HRS AND PRN. KING CATHETER IN PLACE AND ACTIVELY DRAINING CLEAR YELLOW URINE VIA GRAVITY, KING CARE DONE. ALL NEEDS AND CARE PROVIDED WELL. SAFETY PRECAUTIONS IN PLACE: BED ON LOWEST LOCKED POSITION, SIDE RAILS UP X 3, CALL LIGHT WITHIN EASY REACH. WILL ENDORSE OSMANY TO GREEN CHAIN OFFBEARER NURSE.
--- NOTE | 2021-08-06 19:40 | NUR ---
TELE/RN OPENING NOTE RECEIVED PATIENT RESTING IN BED. NON-VERBAL AT BASELINE. CONTINUES ON MECHANICAL VENT WITH PATIENT TOLERATING SETTINGS WELL. IV ACCESS TO LEFT UPPER ARM MIDLINE #18G AND RIGHT IJ #20G BOTH INTACT AND PATENT. CONTINUES ON IVF NS 0.9% @ 75ML/HR. CONTINUES ON IV ABX. CONTINUES ON GT FEED GLUCERNA 1.2 @ 65ML/HR. NO RESIDUAL NOTED AT THIS TIME. KING CATHETER IN PLACE WITH HEMATURIA NOTED. MD AWARE. TELE MONITOR IN PLACE WITH CURRENT READING SR HR 80. CALL LIGHT WITHIN REACH. ASPIRATION, FALL AND SAFETY PRECAUTIONS MAINTAINED. WILL CONTINUE TO MONITOR.
--- NOTE | 2021-08-06 20:00 | NUR ---
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 MD IS AWARE - CM TO INITIATE TRANSFER TO HIGHER LEVEL OF CARE TOMORROW. PATIENT CONTINUES WITH HEMATURIA. WILL CONTINUE TO MONITOR.
[2021-08-07] VITALS (8 sets, daily range): BP systolic 140–173; BP diastolic 69–95
[2021-08-07] MEDS: GABAPENTIN 100 MG CAPSULE GT SCH ×3 (05:42→22:36)
[2021-08-07] MEDS: MEROPENEM 1 G in IV NS 0.9% 100 ML IV SCH ×3 (05:42→22:49)
[2021-08-07] MEDS: GLUCERNA 1.2 1,000 ML BOTTLE GT PRN (05:53)
--- NOTE | 2021-08-07 06:30 | NUR ---
TELE/RN CLOSING NOTE PATIENT CURRENTLY RESTING IN BED. NON-VERBAL AT BASELINE. CONTINUES ON MECHANICAL VENT WITH PATIENT TOLERATING SETTINGS WELL. IV ACCESS TO LEFT UPPER ARM MIDLINE #18G AND RIGHT IJ #20G BOTH INTACT AND PATENT. CONTINUES ON IVF NS 0.9% @ 75ML/HR. CONTINUES ON IV ABX. CONTINUES ON GT FEED GLUCERNA 1.2 @ 65ML/HR. NO RESIDUAL NOTED AT THIS TIME. KING CATHETER IN PLACE WITH HEMATURIA NOTED. MD AWARE. TELE MONITOR IN PLACE WITH CURRENT READING SR/SB HR 55. CALL LIGHT WITHIN REACH. ASPIRATION, FALL AND SAFETY PRECAUTIONS MAINTAINED. WILL ENDORSE PLAN OF CARE TO ONCOMING SHIFT.
--- NOTE | 2021-08-07 07:30 | NUR ---
QUALITY COMPLIANCE CONSULTANT OPENING NOTE RECEIVED PATIENT IN BED WITH EYES OPEN. NON-VERBAL AT BASELINE. CONTINUES ON MECHANICAL VENT PORTEX #7, AC 12, TV 500, FiO2 30%, PEEP 5. NO S/S OF RESPIRATORY DISTRESS AT THIS TIME. IV ACCESS TO LEFT UPPER ARM MIDLINE #18G AND RIGHT IJ #20G BOTH INTACT AND PATENT WITH NS 0.9% @ 75ML/HR. GT IN PLACE AND PATENT WITH GLUCERNA 1.2 RUNNING @ 65ML/HR. NO RESIDUAL NOTED AT THIS TIME. KING CATHETER IN PLACE WITH HEMATURIA NOTED. MD AWARE. TELE MONITOR SHOWS SINUS ROSALINA 47BPM. SAFETY PRECAUTIONS IN PLACE: HOB ELEVATED, BED IN LOWEST POSITION WITH WHEELS LOCKED, CALL LIGHT WITHIN REACH. WILL CONTINUE TO FOLLOW PLAN OF CARE.
[2021-08-07] MEDS: ENOXAPARIN SODIUM 40 MG/0.4 ML DISP.SYRIN SQ SCH (09:00)
[2021-08-07] MEDS: PANTOPRAZOLE 40 MG/PACK PACK GT SCH (09:11)
[2021-08-07] MEDS: ACIDOPHILUS/BULGARICUS 1 EACH TAB.CHEW GT SCH (09:11)
[2021-08-07] MEDS: FERROUS SULFATE UDC 300 MG/5 ML UDC GT SCH ×2 (09:11→16:43)
[2021-08-07] MEDS: DOCUSATE SODIUM LIQ 100 MG/10 ML UDC GT SCH ×2 (09:11→16:43)
[2021-08-07] MEDS: MULTIVIT W/MINERALS 1 TAB TABLET GT SCH (09:12)
[2021-08-07] MEDS: AMLODIPINE BESYLATE 10 MG TABLET GT SCH (09:18)
[2021-08-07] MEDS: HYDROGEL DRESSING 90 GM TUBE TP SCH (09:50)
[2021-08-07] MEDS: VITAMIN E 400 UNIT CAPSULE GT SCH ×2 (09:58→16:43)
--- NOTE | 2021-08-07 10:00 | NUR ---
RN NOTES 0900 BACILIO HELD D/T HEMATURIA.
[2021-08-07] MEDS: IV NS 0.9% 1,000 ML IV PRN (12:08)
[2021-08-07 14:56] LABS: BASOPHILS # (AUTO) 0.1 K/uL (0.0-0.2); BASOPHILS % (AUTO) 0.7 % (0.0-2.0); EOSINOPHILS % (AUTO) 5.1 % (0.0-6.0); HEMATOCRIT 32 % (39-51); HEMOGLOBIN 10.1 g/dL (13.5-17.5); LYMPHOCYTES # (AUTO) 1.7 K/uL (0.8-4.8); LYMPHOCYTES % (AUTO) 20.6 % (20.0-44.0); MEAN CORPUSCULAR HGB CONC 32 g/dl (31.0-36.0); MEAN CORPUSCULAR VOLUME 85 fL (80-96); MONOCYTES # (AUTO) 0.6 K/uL (0.1-1.30); MONOCYTES % (AUTO) 7.3 % (2.0-12.0); NEUTROPHILS # (AUTO) 5.6 K/uL (1.8-8.9); NEUTROPHILS % (AUTO) 66.3 % (43.0-81.0); PLATELET COUNT (AUTO) 561 K/uL (150-450); RED BLOOD CELL COUNT(AUTO) 3.77 MIL/uL (4.5-6.0); WHITE BLOOD COUNT (AUTO) 8.5 K/uL (4.3-11.0)
[2021-08-07] MEDS: ASCORBIC ACID 500 MG TABLET GT SCH (18:16)
--- NOTE | 2021-08-07 18:57 | NUR ---
PONY EDGER CLOSING NOTE PATIENT IN BED WITH EYES OPEN. NON-VERBAL AT BASELINE. CONTINUES ON MECHANICAL VENT PORTEX #7, AC 12, TV 500, FiO2 30%, PEEP 5. NO S/S OF RESPIRATORY DISTRESS NOTED. TELE MONITOR SHOWS SR 65BPM AT THIS TIME. IV ACCESS TO LEFT UPPER ARM MIDLINE #18G AND RIGHT IJ #20G BOTH INTACT AND PATENT WITH NS 0.9% @ 75ML/HR. GT IN PLACE AND PATENT WITH GLUCERNA 1.2 RUNNING @ 65ML/HR. KING CATHETER IN PLACE WITH HEMATURIA 900ML OUTPUT NOTED. WOUND DRESSINGS CHANGED. ALL ORDERS CARRIED OUT. SAFETY PRECAUTIONS IN PLACE: HOB ELEVATED, BED IN LOWEST POSITION WITH WHEELS LOCKED, CALL LIGHT WITHIN REACH. WILL ENDORSE FOR OSMANY.
--- NOTE | 2021-08-07 19:30 | NUR ---
meat department manager opening notes Pt is resting in bed comfortably. Pt is obtunded, nonverbal and able to open eyes. Pt is mec. vent with saturation 100%. No SOB. No S/S of distress noted. Tele monitor showed SR hr at 75 with pac. IV site at SANDI midline is clean, intact and infusing well NS@ 75 ml/hr. R jugular vein is clean, and intact. Gtube feeding running glucerna @ 65 ml/hr. Lee cath is intact and draining hematuria. Safety precautions is maintained. Bed at low position, brakes locked, side railsupX3, hob elevated and call light is within reach. Will continue to monitor.
[2021-08-08] VITALS: BP 143/95
[2021-08-08 00:35] VITALS: BP 143/95
[2021-08-08] MEDS: IV NS 0.9% 1,000 ML IV PRN ×2 (02:30→18:49)
[2021-08-08] MEDS: GLUCERNA 1.2 1,000 ML BOTTLE GT PRN ×2 (03:09→18:49)
[2021-08-08 04:07] VITALS: BP 149/94
[2021-08-08] MEDS: MEROPENEM 1 G in IV NS 0.9% 100 ML IV SCH ×3 (05:08→19:52)
[2021-08-08] MEDS: GABAPENTIN 100 MG CAPSULE GT SCH ×3 (05:09→20:38)
--- NOTE | 2021-08-08 06:40 | NUR ---
wrapping machine helper closing notes Pt is resting in bed comfortably. Pt is nonverbal and able to open eyes. Pt is mec. vent with saturation 100%. No SOB. No S/S of distress noted. VS is stable and afebrile. Tele monitor showed Sbrady hr at 56. IV site at SANDI midline is clean, intact and infusing well NS@ 75 ml/hr. R jugular vein is clean, and intact. Gtube feeding running glucerna @ 65 ml/hr with 0 residual. Pt tolerated well. Lee cath is intact and draining hematuria 900 ml. Routine meds were given as ordered. Wound care provided as ordered. Kept Pt clean, dry and comfortable. All needs met and attended. Safety precautions is maintained. Bed at low position, brakes locked, side railsupX3, hob elevated and call light is within reach. Will endorse to am nurse for OSMANY.
--- NOTE | 2021-08-08 07:20 | NUR ---
LEISURE TRAVEL AGENT OPENING NOTES RECEIVED PATIENT IN BED WITH EYES OPEN. NON-VERBAL AT BASELINE. CONTINUES ON MECHANICAL VENT PORTEX #7, AC 12, TV 500, FiO2 30%, PEEP 5. NO S/S OF RESPIRATORY DISTRESS OR SOB AT THIS TIME. TELE MONITOR SHOWS SR 75 BPM AT THIS TIME. IV ACCESS TO LEFT UPPER ARM MIDLINE #18G AND RIGHT IJ #20G BOTH INTACT AND PATENT WITH NS 0.9% @ 75ML/HR. GT IN PLACE AND PATENT WITH GLUCERNA 1.2 RUNNING @ 65ML/HR. KING CATHETER IN PLACE WITH HEMATURIA DRAINAGE NOTED. SAFETY PRECAUTIONS IN PLACE: HOB ELEVATED, BED IN LOWEST POSITION WITH WHEELS LOCKED, CALL LIGHT WITHIN REACH. WILL CONTINUE TO FOLLOW PLAN OF CARE.
[2021-08-08 08:00] VITALS: BP 142/85
[2021-08-08] MEDS: ENOXAPARIN SODIUM 40 MG/0.4 ML DISP.SYRIN SQ SCH (09:00)
[2021-08-08] MEDS: DOCUSATE SODIUM LIQ 100 MG/10 ML UDC GT SCH ×2 (09:13→18:27)
[2021-08-08] MEDS: FERROUS SULFATE UDC 300 MG/5 ML UDC GT SCH ×2 (09:13→18:27)
[2021-08-08] MEDS: ACIDOPHILUS/BULGARICUS 1 EACH TAB.CHEW GT SCH (09:13)
[2021-08-08] MEDS: MULTIVIT W/MINERALS 1 TAB TABLET GT SCH (09:13)
[2021-08-08] MEDS: PANTOPRAZOLE 40 MG/PACK PACK GT SCH (09:13)
[2021-08-08] MEDS: AMLODIPINE BESYLATE 10 MG TABLET GT SCH (09:14)
[2021-08-08] MEDS: VITAMIN E 400 UNIT CAPSULE GT SCH ×2 (09:17→18:27)
[2021-08-08 09:36] LABS: BASOPHILS # (AUTO) 0.1 K/uL (0.0-0.2); BASOPHILS % (AUTO) 1.1 % (0.0-2.0); EOSINOPHILS % (AUTO) 5.7 % (0.0-6.0); HEMATOCRIT 29 % (39-51); HEMOGLOBIN 9.2 g/dL (13.5-17.5); LYMPHOCYTES # (AUTO) 1.3 K/uL (0.8-4.8); LYMPHOCYTES % (AUTO) 16.7 % (20.0-44.0); MEAN CORPUSCULAR HGB CONC 32 g/dl (31.0-36.0); MEAN CORPUSCULAR VOLUME 84 fL (80-96); MONOCYTES # (AUTO) 0.4 K/uL (0.1-1.30); MONOCYTES % (AUTO) 4.9 % (2.0-12.0); NEUTROPHILS # (AUTO) 5.7 K/uL (1.8-8.9); NEUTROPHILS % (AUTO) 71.6 % (43.0-81.0); PLATELET COUNT (AUTO) 428 K/uL (150-450)
[2021-08-08] MEDS: HYDROGEL DRESSING 90 GM TUBE TP SCH (09:44)
[2021-08-08] MEDS: EPOETIN ALFA-EPBX 10,000 UNIT/ML VIAL SQ SCH (12:16)
[2021-08-08 16:00] VITALS: BP 137/73
[2021-08-08] MEDS: ASCORBIC ACID 500 MG TABLET GT SCH (18:27)
--- NOTE | 2021-08-08 19:07 | NUR ---
CLAIM REP CLOSING NOTES PATIENT IN BED WITH EYES OPEN. NON-VERBAL AT BASELINE. CONTINUES ON MECHANICAL VENT PORTEX #7, AC 12, TV 500, FiO2 30%, PEEP 5. NO S/S OF RESPIRATORY DISTRESS OR SOB AT THIS TIME. TELE MONITOR SHOWS SR 63 BPM AT THIS TIME. IV ACCESS TO LEFT UPPER ARM MIDLINE #18G AND RIGHT IJ #20G BOTH INTACT AND PATENT WITH NS 0.9% @ 75ML/HR. GT IN PLACE AND PATENT WITH GLUCERNA 1.2 RUNNING @ 65ML/HR. KING CATHETER IN PLACE WITH HEMATURIA DRAINAGE NOTED, 900ML OUTPUT. ALL NEEDS MET, ALL ORDERS CARRIED OUT. SAFETY PRECAUTIONS IN PLACE: HOB ELEVATED, BED IN LOWEST POSITION WITH WHEELS LOCKED, CALL LIGHT WITHIN REACH. WILL ENDORSE TO SUSTAINABLE PRODUCTS MARKETING MANAGER NURSE FOR OSMANY
--- NOTE | 2021-08-08 19:25 | NUR ---
EDUCATIONAL AIDE OPENING NOTES PATIENT IN BED WITH EYES OPEN. NON-VERBAL AT BASELINE. CONTINUES ON MECHANICAL VENT PORTEX #7, AC 12, TV 500, FiO2 30%, PEEP 5. NO S/S OF RESPIRATORY DISTRESS OR SOB AT THIS TIME. TELE MONITOR SHOWS SR 63 BPM AT THIS TIME. IV ACCESS TO LEFT UPPER ARM MIDLINE #18G AND RIGHT IJ #20G BOTH INTACT AND PATENT WITH NS 0.9% @ 75ML/HR. GT IN PLACE AND PATENT WITH GLUCERNA 1.2 RUNNING @ 65ML/HR. KING CATHETER IN PLACE WITH HEMATURIA DRAINAGE NOTED. ALL NEEDS MET AT THIS TIME.SAFETY PRECAUTIONS IN PLACE: HOB ELEVATED, BED IN LOWEST POSITION WITH WHEELS LOCKED, CALL LIGHT WITHIN REACH. WILL CONTINUE TO MONITOR.
[2021-08-08 20:00] VITALS: BP 153/93
[2021-08-09] VITALS: BP 164/91
[2021-08-09] MEDS: ACETAMINOPHEN 325 MG TABLET MC PRN (01:02)
[2021-08-09 04:00] VITALS: BP 162/89
[2021-08-09] MEDS: MEROPENEM 1 G in IV NS 0.9% 100 ML IV SCH ×2 (04:11→13:33)
[2021-08-09] MEDS: GABAPENTIN 100 MG CAPSULE GT SCH ×2 (04:13→13:32)
--- NOTE | 2021-08-09 06:29 | NUR ---
HEALTH PROMOTION EDUCATOR OPENING NOTES PATIENT IN BED WITH EYES OPEN. NON-VERBAL AT BASELINE. CONTINUES ON MECHANICAL VENT PORTEX #7, AC 12, TV 500, FiO2 30%, PEEP 5. NO S/S OF RESPIRATORY DISTRESS OR SOB AT THIS TIME. TELE MONITOR SHOWS SR 68 BPM AT THIS TIME.. IV ACCESS TO LEFT UPPER ARM MIDLINE #18G AND RIGHT IJ #20G BOTH INTACT AND PATENT WITH NS 0.9% @ 75ML/HR. GT IN PLACE AND PATENT WITH GLUCERNA 1.2 RUNNING @ 65ML/HR. KING CATHETER IN PLACE WITH HEMATURIA NOTED. ALL NEEDS MET THROUGHOUT THE SHIFT ALL DUE MEDS GIVEN AND TOLERATED WELL PT KEPT CLEAN AND DRY AT ALL TIMES.SAFETY PRECAUTIONS IN PLACE: HOB ELEVATED, BED IN LOWEST POSITION WITH WHEELS LOCKED, CALL LIGHT WITHIN REACH. WILL CONTINUE TO MONITOR.
--- NOTE | 2021-08-09 08:00 | NUR ---
RN Note Patient received in bed, able to responds physical stimuli. does no appears pain or any discomfort. Respiratory even and unlabored with ventilator. Skin is warm to touch keep clean/dry. kept elevate of HOB for ensure airway and aspiration precaution. Call light within reach, will continue to monitor.
[2021-08-09] MEDS: DOCUSATE SODIUM LIQ 100 MG/10 ML UDC GT SCH ×2 (08:58→17:49)
[2021-08-09] MEDS: PANTOPRAZOLE 40 MG/PACK PACK GT SCH (08:58)
[2021-08-09] MEDS: MULTIVIT W/MINERALS 1 TAB TABLET GT SCH (08:58)
[2021-08-09] MEDS: FERROUS SULFATE UDC 300 MG/5 ML UDC GT SCH ×2 (08:58→17:49)
[2021-08-09] MEDS: ACIDOPHILUS/BULGARICUS 1 EACH TAB.CHEW GT SCH (08:58)
[2021-08-09] MEDS: VITAMIN E 400 UNIT CAPSULE GT SCH ×2 (09:00→17:49)
[2021-08-09] MEDS: ENOXAPARIN SODIUM 40 MG/0.4 ML DISP.SYRIN SQ SCH (09:01)
[2021-08-09 09:09] VITALS: BP 133/76
[2021-08-09] MEDS: AMLODIPINE BESYLATE 10 MG TABLET GT SCH (09:09)
[2021-08-09] MEDS: HYDROGEL DRESSING 90 GM TUBE TP SCH (09:22)
[2021-08-09 09:46] LABS: BASOPHILS % (AUTO) 0.6 % (0.0-2.0); EOSINOPHILS % (AUTO) 5.2 % (0.0-6.0); HEMATOCRIT 32 % (39-51); HEMOGLOBIN 10.6 g/dL (13.5-17.5); LYMPHOCYTES # (AUTO) 1.4 K/uL (0.8-4.8); LYMPHOCYTES % (AUTO) 18.7 % (20.0-44.0); MEAN CORPUSCULAR HGB CONC 33 g/dl (31.0-36.0); MEAN CORPUSCULAR VOLUME 84 fL (80-96); MONOCYTES # (AUTO) 0.4 K/uL (0.1-1.30); MONOCYTES % (AUTO) 5.2 % (2.0-12.0); NEUTROPHILS # (AUTO) 5.3 K/uL (1.8-8.9); NEUTROPHILS % (AUTO) 70.3 % (43.0-81.0); PLATELET COUNT (AUTO) 541 K/uL (150-450); RED BLOOD CELL COUNT(AUTO) 3.83 MIL/uL (4.5-6.0); WHITE BLOOD COUNT (AUTO) 7.6 K/uL (4.3-11.0)
[2021-08-09] MEDS: GLUCERNA 1.2 1,000 ML BOTTLE GT PRN (13:58)
[2021-08-09] MEDS ORDERED: NUT.237L45 GT (14:37)
--- NOTE | 2021-08-09 16:56 | NUR ---
Patient d/c to [facility], given report Elsa DELGADILLO. Ambulance will picker and sorter load and unload patient at 1914, wound picture taken.
[2021-08-09] MEDS: ASCORBIC ACID 500 MG TABLET GT SCH (17:49)
--- NOTE | 2021-08-09 19:00 | NUR ---
Patient d/c to SNF, ambulance will correctional supply supervisor patient at 1915, endorsed shift nurse manager.
--- NOTE | 2021-08-09 19:55 | NUR ---
ASSISTANT STORE DIRECTOR NOTES EMT TAKING PATIENT AT THIS TIME WITH RT. REPORT GIVEN TO MALCOLM GARY. PATIENT HAS NO S/S OF APPARENT DISTRESS-- VENT DEPENDENT. NOT EXHIBITING PAIN VIA FLACC. FEEDINGS TAKEN OFF AND G-TUBE FLUSHED. MIDLINE WILL REMAIN AND WELL KING CATH-- PER ENDORSEMENT. TELE MONITOR OFF, HOSPITAL ID BAND DISCARDED. V/S FOLLOWS: BP: 158/80, SATURATION 97%, HR-87, AFEBRILE. PATIENT TO DISCHARGE IN [facility].
== END 2021-08-09 20:00 | DRG 130 ==
LOC: ER 07:21 → TRANSITION 11:55 → TELE1 14:26 → TRANSITION 15:04 → TELE1 16:09 → TELE 08-06 12:04
PROVIDERS: ADMIT Nurse Practitioner Acute Care; ATTEND Nurse Practitioner Acute Care
PROC: 5A1955Z Respiratory Ventilation, Greater than 96 Consecutive Hours (ICD-10-PCS; principal; 2021-07-31)
PROC: 30233N1 Transfusion of Nonautologous Red Blood Cells into Peripheral Vein, Percutaneous Approach (ICD-10-PCS; 2021-08-01)
PROC: 02HV33Z Insertion of Infusion Device into Superior Vena Cava, Percutaneous Approach (ICD-10-PCS; 2021-08-01)
PROC: B548ZZA Ultrasonography of Superior Vena Cava, Guidance (ICD-10-PCS; 2021-08-01)
DX: J95.851 Ventilator associated pneumonia (principal); R65.21 Severe sepsis with septic shock; A41.9 Sepsis, unspecified organism; G93.40 Encephalopathy, unspecified; J96.20 Acute and chronic respiratory failure, unspecified whether with hypoxia or hypercapnia; L89.616 Pressure-induced deep tissue damage of right heel; E44.0 Moderate protein-calorie malnutrition; N17.9 Acute kidney failure, unspecified; L89.896 Pressure-induced deep tissue damage of other site; R64 Cachexia; D68.59 Other primary thrombophilia; E11.22 Type 2 diabetes mellitus with diabetic chronic kidney disease; I13.10 Hypertensive heart and chronic kidney disease without heart failure, with stage 1 through stage 4 chronic kidney disease, or unspecified chronic kidney disease; Z99.11 Dependence on respirator [ventilator] status; Y84.8 Other medical procedures as the cause of abnormal reaction of the patient, or of later complication, without mention of misadventure at the time of the procedure; Y82.8 Other medical devices associated with adverse incidents; Y92.129 Unspecified place in nursing home as the place of occurrence of the external cause; N39.0 Urinary tract infection, site not specified; D63.8 Anemia in other chronic diseases classified elsewhere; Z20.822 Contact with and (suspected) exposure to COVID-19; Z86.73 Personal history of transient ischemic attack (TIA), and cerebral infarction without residual deficits; E78.00 Pure hypercholesterolemia, unspecified; R13.10 Dysphagia, unspecified; Z93.0 Tracheostomy status; Z93.1 Gastrostomy status; E78.5 Hyperlipidemia, unspecified; E86.0 Dehydration; G81.90 Hemiplegia, unspecified affecting unspecified side; F32.9 Major depressive disorder, single episode, unspecified; Z88.0 Allergy status to penicillin; Z79.51 Long term (current) use of inhaled steroids; Z79.899 Other long term (current) drug therapy; L89.90 Pressure ulcer of unspecified site, unspecified stage; Z86.19 Personal history of other infectious and parasitic diseases; Z87.440 Personal history of urinary (tract) infections; Z74.01 Bed confinement status; M62.562 Muscle wasting and atrophy, not elsewhere classified, left lower leg; M62.561 Muscle wasting and atrophy, not elsewhere classified, right lower leg; Z74.09 Other reduced mobility; Y84.6 Urinary catheterization as the cause of abnormal reaction of the patient, or of later complication, without mention of misadventure at the time of the procedure; T83.021A Displacement of indwelling urethral catheter, initial encounter; B96.89 Other specified bacterial agents as the cause of diseases classified elsewhere; N13.9 Obstructive and reflux uropathy, unspecified; N18.31 Chronic kidney disease, stage 3a; M24.562 Contracture, left knee; M24.561 Contracture, right knee; M21.952 Unspecified acquired deformity of left thigh; M21.951 Unspecified acquired deformity of right thigh; N13.6 Pyonephrosis; J98.11 Atelectasis; N32.89 Other specified disorders of bladder; N32.0 Bladder-neck obstruction; R31.9 Hematuria, unspecified
CPT/HCPCS: 31720; 36415; 71045-TC; 72192-TC; 80048-TC; 80076-TC; 81001; 83605-TC; 83735-TC; 84100-TC; 84484-TC; 85025-TC; 85730-TC; 86850-TC; 87040-TC; 87086-TC; 94002-TC; 94003-TC; 94760-TC; 94762-TC; 94799-TC; 99082-TC; A4217; A4623; A6248; A6253; A6403; A7526; C9113; G0378; J0885; J1644; J1650; J2185; J2270; J7030; J7050; P9016; Q9967; U0003

== ENCOUNTER 2023-07-03 20:10 | Inpatient (IN) | payer OTHER ==
[~2023-07-03] VITALS: Ht 177.8 cm; Wt 83.5 kg
[~2023-07-03 20:10] MED LIST changes: +NUT.237L45 GT
[2023-07-03 21:09] LABS: BASOPHILS # (AUTO) 0.1 K/uL (0.0-0.2); BASOPHILS % (AUTO) 0.5 % (0.0-2.0); EOSINOPHILS # (AUTO) 0.2 K/uL (0.0-0.7); EOSINOPHILS % (AUTO) 2.2 % (0.0-6.0); HEMATOCRIT 23 % (39-51); HEMOGLOBIN 7.3 g/dL (13.5-17.5); LYMPHOCYTES # (AUTO) 1.4 K/uL (0.8-4.8); LYMPHOCYTES % (AUTO) 13.7 % (20.0-44.0); MEAN CORPUSCULAR HEMOGLOBIN 26 PG (26.0-33.0); MEAN CORPUSCULAR HGB CONC 31 g/dl (31.0-36.0); MEAN CORPUSCULAR VOLUME 83 fL (80-96); MONOCYTES # (AUTO) 0.5 K/uL (0.1-1.30); NEUTROPHILS # (AUTO) 7.9 K/uL (1.8-8.9); NEUTROPHILS % (AUTO) 78.6 % (43.0-81.0); PLATELET COUNT (AUTO) 521 K/uL (150-450); RED BLOOD CELL COUNT(AUTO) 2.81 MIL/uL (4.5-6.0); RED CELL DISTRIBUTION WIDTH 20.4 % (11.5-15.0); WHITE BLOOD COUNT (AUTO) 10.1 K/uL (4.3-11.0)
[2023-07-03 21:20] LABS: CREATININE 2.5 mg/dL (0.6-1.3); POTASSIUM 3.8 mmol/L (3.5-5.1)
[2023-07-03 21:25] LABS: ALBUMIN 2.2 g/dL (3.4-5.0); BILIRUBIN,TOTAL 0.2 mg/dL (0.2-1.0); TOTAL PROTEIN, SERUM 8.3 g/dL (6.4-8.2)
[2023-07-03 22:26] LABS: APPEARANCE,URINE CLEAR (CLEAR); BILIRUBIN,URINE NEGATIVE (NEGATIVE); BLOOD, URINE TRACE-INTA Ery/uL (NEGATIVE); COLOR,URINE YELLOW (YELLOW); KETONES,URINE NEGATIVE (NEGATIVE); LEUKOCYTE ESTERASE ,URINE TRACE (NEGATIVE); NITRITE, URINE NEGATIVE (NEGATIVE); PROTEIN,URINE 3+ mg/dl (NEGATIVE); UGLUCOSE NEGATIVE (NEGATIVE); UROBILINOGEN,URINE 0.2 EU/dL (0.2)
[2023-07-03 22:42] LABS: ADD URINE CULTURE NO; BACTERIA,URINE Rare /HPF (None Seen); SQUAMOUS EPITHELIAL CELL,UR Rare /HPF (None Seen)
[2023-07-04] VITALS (11 sets, daily range): BP systolic 125–161; BP diastolic 79–92; TEMP 98–99.1; O2SAT 97–99
[2023-07-04] MEDS ORDERED: ZOLPIDEM TARTRATE 5 MG TABLET PO PRN (00:30)
[2023-07-04] MEDS ORDERED: MAGNESIUM HYDROXIDE 30 ML UDC PO PRN (00:30)
[2023-07-04] MEDS ORDERED: DEXTROSE 50%-WATER 50 ML DISP.SYRIN IV PRN (00:30)
[2023-07-04] MEDS ORDERED: IV NS 0.9% 1,000 ML IV PRN (00:30)
[2023-07-04] MEDS ORDERED: ONDANSETRON HCL/PF 4 MG/2 ML VIAL IVP PRN (00:30)
[2023-07-04] MEDS ORDERED: Z GUARD REMEDY 4 OZ OINT TP PRN (00:30)
[2023-07-04] MEDS ORDERED: MAG HYDROX/AL HYDROX/SIMETH 30 ML UDC PO PRN (00:30)
[2023-07-04] MEDS ORDERED: CEFTRIAXONE 1GM BAG (ER ONLY) 50 ML IV ONE (01:53)
[2023-07-04] MEDS: CEFTRIAXONE 1 G in IV D5W 50 ML IV SCH ×2 (01:54→21:23)
[2023-07-04 05:45] LABS: BASOPHILS # (AUTO) 0.1 K/uL (0.0-0.2); BASOPHILS % (AUTO) 0.8 % (0.0-2.0); EOSINOPHILS # (AUTO) 0.4 K/uL (0.0-0.7); EOSINOPHILS % (AUTO) 4.1 % (0.0-6.0); HEMATOCRIT 22 % (39-51); LYMPHOCYTES # (AUTO) 1.3 K/uL (0.8-4.8); LYMPHOCYTES % (AUTO) 14.5 % (20.0-44.0); MEAN CORPUSCULAR HEMOGLOBIN 26 PG (26.0-33.0); MEAN CORPUSCULAR HGB CONC 31 g/dl (31.0-36.0); MEAN CORPUSCULAR VOLUME 82 fL (80-96); MONOCYTES # (AUTO) 0.5 K/uL (0.1-1.30); MONOCYTES % (AUTO) 5.9 % (2.0-12.0); NEUTROPHILS # (AUTO) 6.8 K/uL (1.8-8.9); NEUTROPHILS % (AUTO) 74.7 % (43.0-81.0); PLATELET COUNT (AUTO) 468 K/uL (150-450); RED BLOOD CELL COUNT(AUTO) 2.62 MIL/uL (4.5-6.0); RED CELL DISTRIBUTION WIDTH 20.2 % (11.5-15.0); WHITE BLOOD COUNT (AUTO) 9.1 K/uL (4.3-11.0)
[2023-07-04 05:46] LABS: HEMOGLOBIN 6.7 g/dL (13.5-17.5)
[2023-07-04 05:58] LABS: BILIRUBIN,TOTAL 0.2 mg/dL (0.2-1.0); CREATININE 2.5 mg/dL (0.6-1.3); MAGNESIUM 3.6 mg/dL (1.8-2.4); PHOSPHORUS 4.2 mg/dL (2.5-4.9); TOTAL PROTEIN, SERUM 7.7 g/dL (6.4-8.2)
[2023-07-04 06:07] LABS: THYROID STIMULATING HORMONE 3.303 uIU/mL (0.358-3.74)
[2023-07-04] MEDS: BLOOD SUGAR DIAGNOSTIC 1 EACH STRIP IN SCH ×4 (07:30→22:22)
[2023-07-04] MEDS ORDERED: ARGI1POW13 PO (08:41)
[2023-07-04] MEDS ORDERED: [UNRECOGNIZED DRUG - CODE] IV (08:41)
[2023-07-04] MEDS ORDERED: CLIN300C12 GT (08:41)
[2023-07-04] MEDS ORDERED: ACET160L44 GT (08:41)
[2023-07-04] MEDS ORDERED: FERR220S2 GT (08:41)
[2023-07-04] MEDS ORDERED: OMEG1600 GT (08:41)
[2023-07-04] MEDS ORDERED: POVI3780 TP (08:41)
[2023-07-04] MEDS ORDERED: VITA-354 GT (08:41)
[2023-07-04] MEDS ORDERED: ACET-2605 GT (08:41)
[2023-07-04] MEDS ORDERED: OMEP20CA15 GT (08:41)
[2023-07-04] MEDS ORDERED: EPOE1VIA12 SQ (08:41)
[2023-07-04] MEDS ORDERED: DIABETISOURCE AC GT (08:41)
[2023-07-04] MEDS ORDERED: ALBU2.5V38 IH ×2 (08:41)
[2023-07-04] MEDS ORDERED: ISOS20TA8 GT (08:41)
[2023-07-04 08:44] LABS: ANISOCYTOSIS 1+; BAND % (MANUAL) 1 % (0.0-5.0); EOSINOPHILS % (MANUAL) 3 % (0-4); LYMPHOCYTES % (MANUAL) 12 % (16-48); MONOCYTES % (MANUAL) 4 % (0-11.0); NEUTROPHILS % (MANUAL) 80 (42-76); PLATELET ESTIMATE INCREASED
[2023-07-04] MEDS: GLUCERNA 1.2 1,000 ML BOTTLE NG PRN ×2 (08:58→10:02)
[2023-07-04] MEDS: INSULIN REGULAR, HUMAN 100 UNIT/ML 3 ML VIAL SQ PRN ×3 (08:59→17:58)
[2023-07-04] MEDS: PANTOPRAZOLE 40 MG VIAL IV SCH (09:00)
[2023-07-04] MEDS: THERAHONEY GEL 1.5 OZ TUBE TP SCH (09:01)
[2023-07-04] MEDS: FUROSEMIDE 100 MG/10 ML VIAL IV SCH ×3 (10:04→17:57)
[2023-07-04] MEDS: ISOSORBIDE DINITRATE (20MG) 20 MG TABLET GT SCH ×2 (12:25→21:11)
[2023-07-04] MEDS: GABAPENTIN 100 MG CAPSULE GT SCH ×2 (12:25→21:11)
[2023-07-04] MEDS: hydrALAZINE HCL 50 MG TABLET GT SCH ×2 (13:50→21:10)
[2023-07-04] MEDS: EPOETIN ALFA (10,000 UNIT) 10,000 UNIT/ML VIAL SQ SCH (15:44)
[2023-07-04 16:37] LABS: CREATININE, URINE 21.5 MG/DL (30.0-125.0); URINE TOTAL PROTEIN 229.6 mg/dL (0-11.9)
[2023-07-04] MEDS ORDERED: OMEPRAZOLE 20 MG CAPSULE.DR GT SCH (17:00)
[2023-07-04 17:10] LABS: APPEARANCE,URINE SLIGHTLY CLOUDY (CLEAR); BILIRUBIN,URINE NEGATIVE (NEGATIVE); BLOOD, URINE 2+ Ery/uL (NEGATIVE); COLOR,URINE YELLOW (YELLOW); KETONES,URINE NEGATIVE (NEGATIVE); LEUKOCYTE ESTERASE ,URINE 2+ (NEGATIVE); NITRITE, URINE NEGATIVE (NEGATIVE); PROTEIN,URINE 3+ mg/dl (NEGATIVE); UGLUCOSE NEGATIVE (NEGATIVE); UROBILINOGEN,URINE 0.2 EU/dL (0.2)
[2023-07-04 17:19] LABS: ADD URINE CULTURE YES; RBC,URINE 21-50 /HPF (0-2); WBC,URINE 21-50 /HPF (0-3)
[2023-07-04 17:20] LABS: BACTERIA,URINE 3+ /HPF (None Seen); MUCUS,URINE Few /LPF (None Seen); SQUAMOUS EPITHELIAL CELL,UR 0-2 /HPF (None Seen)
[2023-07-04 17:24] LABS: EOSINOPHIL,URINE None Seen
[2023-07-04] MEDS: BACLOFEN (10 MG) 10 MG TABLET GT SCH (21:10)
[2023-07-04] MEDS: *INSULIN REGULAR(HUMULIN R)HUM 100 UNIT/ML VIAL SQ PRN (22:23)
[2023-07-05] VITALS: BP 145/88; TEMP 98; O2SAT 96
[2023-07-05 04:00] VITALS: BP 158/88; TEMP 98; O2SAT 98
[2023-07-05] MEDS: GABAPENTIN 100 MG CAPSULE GT SCH ×3 (05:27→20:30)
[2023-07-05] MEDS: hydrALAZINE HCL 50 MG TABLET GT SCH ×3 (05:28→20:29)
[2023-07-05] MEDS: ISOSORBIDE DINITRATE (20MG) 20 MG TABLET GT SCH ×3 (05:28→20:28)
[2023-07-05 06:04] LABS: BASOPHILS # (AUTO) 0.1 K/uL (0.0-0.2); BASOPHILS % (AUTO) 0.8 % (0.0-2.0); EOSINOPHILS # (AUTO) 0.3 K/uL (0.0-0.7); EOSINOPHILS % (AUTO) 3.1 % (0.0-6.0); HEMATOCRIT 27 % (39-51); HEMOGLOBIN 8.5 g/dL (13.5-17.5); LYMPHOCYTES # (AUTO) 1.4 K/uL (0.8-4.8); LYMPHOCYTES % (AUTO) 14.1 % (20.0-44.0); MEAN CORPUSCULAR HEMOGLOBIN 26 PG (26.0-33.0); MEAN CORPUSCULAR HGB CONC 32 g/dl (31.0-36.0); MEAN CORPUSCULAR VOLUME 84 fL (80-96); MONOCYTES # (AUTO) 0.9 K/uL (0.1-1.30); MONOCYTES % (AUTO) 8.5 % (2.0-12.0); NEUTROPHILS # (AUTO) 7.4 K/uL (1.8-8.9); NEUTROPHILS % (AUTO) 73.5 % (43.0-81.0); PLATELET COUNT (AUTO) 488 K/uL (150-450); RED BLOOD CELL COUNT(AUTO) 3.22 MIL/uL (4.5-6.0); RED CELL DISTRIBUTION WIDTH 20.5 % (11.5-15.0)
[2023-07-05 06:09] LABS: ALBUMIN 2.3 g/dL (3.4-5.0); BILIRUBIN,TOTAL 0.3 mg/dL (0.2-1.0); CALCIUM, SERUM 9.7 mg/dL (8.5-10.1); CREATININE 2.9 mg/dL (0.6-1.3); MAGNESIUM 3.7 mg/dL (1.8-2.4); PHOSPHORUS 4.5 mg/dL (2.5-4.9); POTASSIUM 3.7 mmol/L (3.5-5.1); TOTAL PROTEIN, SERUM 8.4 g/dL (6.4-8.2)
[2023-07-05] MEDS: BLOOD SUGAR DIAGNOSTIC 1 EACH STRIP IN SCH ×4 (07:50→22:08)
[2023-07-05] MEDS: INSULIN REGULAR, HUMAN 100 UNIT/ML 3 ML VIAL SQ PRN ×3 (07:51→18:40)
[2023-07-05 08:00] VITALS: BP 139/89; TEMP 98.6; O2SAT 98
[2023-07-05] MEDS: BACLOFEN (10 MG) 10 MG TABLET GT SCH ×2 (08:28→20:29)
[2023-07-05] MEDS: PANTOPRAZOLE 40 MG VIAL IV SCH (08:28)
[2023-07-05] MEDS: THERAHONEY GEL 1.5 OZ TUBE TP SCH (08:29)
[2023-07-05 12:00] VITALS: BP 146/97; TEMP 99; O2SAT 97
[2023-07-05 16:00] VITALS: BP 148/92; TEMP 99; O2SAT 97
[2023-07-05] MEDS: GLUCERNA 1.2 1,000 ML BOTTLE NG PRN (16:13)
[2023-07-05 20:00] VITALS: BP 135/88; TEMP 98; O2SAT 97
[2023-07-05] MEDS: CEFTRIAXONE 1 G in IV D5W 50 ML IV SCH (20:37)
[2023-07-05] MEDS: *INSULIN REGULAR(HUMULIN R)HUM 100 UNIT/ML VIAL SQ PRN (22:08)
[2023-07-06] VITALS: BP 151/95; TEMP 99; O2SAT 96
[2023-07-06 04:00] VITALS: BP 149/95; TEMP 98; O2SAT 96
[2023-07-06] MEDS: ISOSORBIDE DINITRATE (20MG) 20 MG TABLET GT SCH ×3 (04:09→20:42)
[2023-07-06] MEDS: GABAPENTIN 100 MG CAPSULE GT SCH ×3 (04:09→20:42)
[2023-07-06] MEDS: hydrALAZINE HCL 50 MG TABLET GT SCH ×3 (04:10→20:41)
[2023-07-06 07:38] LABS: BASOPHILS # (AUTO) 0.1 K/uL (0.0-0.2); BASOPHILS % (AUTO) 0.7 % (0.0-2.0); EOSINOPHILS # (AUTO) 0.2 K/uL (0.0-0.7); EOSINOPHILS % (AUTO) 2.1 % (0.0-6.0); HEMATOCRIT 28 % (39-51); HEMOGLOBIN 8.9 g/dL (13.5-17.5); LYMPHOCYTES # (AUTO) 1.5 K/uL (0.8-4.8); LYMPHOCYTES % (AUTO) 14.4 % (20.0-44.0); MEAN CORPUSCULAR HEMOGLOBIN 27 PG (26.0-33.0); MEAN CORPUSCULAR HGB CONC 32 g/dl (31.0-36.0); MEAN CORPUSCULAR VOLUME 84 fL (80-96); MONOCYTES # (AUTO) 0.9 K/uL (0.1-1.30); MONOCYTES % (AUTO) 8.7 % (2.0-12.0); NEUTROPHILS # (AUTO) 7.8 K/uL (1.8-8.9); NEUTROPHILS % (AUTO) 74.1 % (43.0-81.0); PLATELET COUNT (AUTO) 465 K/uL (150-450); RED BLOOD CELL COUNT(AUTO) 3.31 MIL/uL (4.5-6.0); RED CELL DISTRIBUTION WIDTH 20.7 % (11.5-15.0); WHITE BLOOD COUNT (AUTO) 10.5 K/uL (4.3-11.0)
[2023-07-06 07:50] LABS: CALCIUM, SERUM 9.2 mg/dL (8.5-10.1); CREATININE 3.2 mg/dL (0.6-1.3); POTASSIUM 3.9 mmol/L (3.5-5.1)
[2023-07-06 08:00] VITALS: BP_SYST 131; BP_DIAS 69; BP_DIAS 76; TEMP 99.5; TEMP 99.7; O2SAT 96
[2023-07-06 08:11] LABS: ERYTHROCYTE SEDIMENTATION RATE 107 MM/HR (0-20)
[2023-07-06] MEDS: BLOOD SUGAR DIAGNOSTIC 1 EACH STRIP IN SCH ×4 (08:19→22:04)
[2023-07-06] MEDS: PANTOPRAZOLE 40 MG/PACK PACK GT SCH (08:34)
[2023-07-06] MEDS: BACLOFEN (10 MG) 10 MG TABLET GT SCH ×2 (08:34→20:42)
[2023-07-06] MEDS: THERAHONEY GEL 1.5 OZ TUBE TP SCH (08:34)
[2023-07-06] MEDS ORDERED: BUMETANIDE INJ 16 MG in IV NS 0.9% 16 ML IV ONE (09:30)
[2023-07-06] MEDS ORDERED: SILVER NITRATE APPLICATOR 1 EA BOX TP SCH (10:00)
[2023-07-06] MEDS ORDERED: LIDOCAINE 1%-EPI 1:100,000 50 ML VIAL IJ ONE (10:00)
[2023-07-06 12:00] VITALS: BP 151/91; TEMP 99.5; O2SAT 98
[2023-07-06] MEDS: GLUCERNA 1.2 1,000 ML BOTTLE NG PRN (13:41)
[2023-07-06 16:00] VITALS: BP 143/89; TEMP 99; O2SAT 98
[2023-07-06 20:00] VITALS: BP 159/95; TEMP 100.2; O2SAT 97
[2023-07-06] MEDS: ACETAMINOPHEN 325 MG TABLET PO PRN (20:39)
[2023-07-06] MEDS: CEFTRIAXONE 1 G in IV D5W 50 ML IV SCH (20:43)
[2023-07-06] MEDS: *INSULIN REGULAR(HUMULIN R)HUM 100 UNIT/ML VIAL SQ PRN (22:10)
[2023-07-07] VITALS: BP 150/89; TEMP 99.9; O2SAT 98
[2023-07-07 04:00] VITALS: BP 153/93; TEMP 100; O2SAT 97
[2023-07-07] MEDS: GABAPENTIN 100 MG CAPSULE GT SCH ×3 (05:01→21:27)
[2023-07-07] MEDS: ISOSORBIDE DINITRATE (20MG) 20 MG TABLET GT SCH ×3 (05:01→21:27)
[2023-07-07] MEDS: hydrALAZINE HCL 50 MG TABLET GT SCH ×3 (05:03→21:26)
[2023-07-07] MEDS: ACETAMINOPHEN 325 MG TABLET PO PRN (06:19)
[2023-07-07] MEDS: BLOOD SUGAR DIAGNOSTIC 1 EACH STRIP IN SCH ×4 (07:45→22:00)
[2023-07-07 07:51] LABS: BASOPHILS # (AUTO) 0.1 K/uL (0.0-0.2); BASOPHILS % (AUTO) 0.6 % (0.0-2.0); EOSINOPHILS # (AUTO) 0.3 K/uL (0.0-0.7); EOSINOPHILS % (AUTO) 2.7 % (0.0-6.0); HEMATOCRIT 33 % (39-51); HEMOGLOBIN 9.9 g/dL (13.5-17.5); LYMPHOCYTES # (AUTO) 1.4 K/uL (0.8-4.8); LYMPHOCYTES % (AUTO) 14.7 % (20.0-44.0); MEAN CORPUSCULAR HEMOGLOBIN 27 PG (26.0-33.0); MEAN CORPUSCULAR HGB CONC 31 g/dl (31.0-36.0); MEAN CORPUSCULAR VOLUME 87 fL (80-96); MONOCYTES # (AUTO) 0.8 K/uL (0.1-1.30); MONOCYTES % (AUTO) 7.9 % (2.0-12.0); NEUTROPHILS # (AUTO) 7.1 K/uL (1.8-8.9); NEUTROPHILS % (AUTO) 74.1 % (43.0-81.0); PLATELET COUNT (AUTO) 460 K/uL (150-450); RED BLOOD CELL COUNT(AUTO) 3.75 MIL/uL (4.5-6.0); RED CELL DISTRIBUTION WIDTH 21.8 % (11.5-15.0); WHITE BLOOD COUNT (AUTO) 9.6 K/uL (4.3-11.0)
[2023-07-07 08:00] VITALS: BP 133/82; TEMP 98.8; O2SAT 98
[2023-07-07] MEDS: THERAHONEY GEL 1.5 OZ TUBE TP SCH (08:03)
[2023-07-07] MEDS: PANTOPRAZOLE 40 MG/PACK PACK GT SCH (08:03)
[2023-07-07] MEDS: BACLOFEN (10 MG) 10 MG TABLET GT SCH ×2 (08:03→21:27)
[2023-07-07 08:13] LABS: COMPLEMENT C3, SERUM 175 mg/dL (82-167); COMPLEMENT C4, SERUM 40 mg/dL (12-38)
[2023-07-07 08:30] LABS: ALBUMIN 2.4 g/dL (3.4-5.0); BILIRUBIN,TOTAL 0.3 mg/dL (0.2-1.0); CALCIUM, SERUM 9.4 mg/dL (8.5-10.1); CREATININE 3.5 mg/dL (0.6-1.3); MAGNESIUM 3.9 mg/dL (1.8-2.4); PHOSPHORUS 6.6 mg/dL (2.5-4.9); POTASSIUM 4.3 mmol/L (3.5-5.1)
[2023-07-07] MEDS: GLUCERNA 1.2 1,000 ML BOTTLE NG PRN (09:23)
[2023-07-07] MEDS ORDERED: MAGNESIUM HYDROXIDE 30 ML UDC GT PRN (10:53)
[2023-07-07] MEDS ORDERED: MAG HYDROX/AL HYDROX/SIMETH 30 ML UDC GT PRN (10:53)
[2023-07-07] MEDS ORDERED: ZOLPIDEM TARTRATE 5 MG TABLET GT PRN (10:53)
[2023-07-07] MEDS: DAKINS QUARTER STRENGTH (0.125%) 480 ML BOTTLE TOP SCH (11:00)
[2023-07-07 11:08] LABS: *SPE A/G RATIO 0.5 (0.7-1.7); *SPE ALBUMIN 2.6 g/dL (2.9-4.4); *SPE ALPHA-1-GLOBULIN 0.2 g/dL (0.0-0.4); *SPE ALPHA-2-GLOBULIN 1.2 g/dL (0.4-1.0); *SPE BETA GLOBULIN 1.3 g/dL (0.7-1.3); *SPE GLOBULIN, TOTAL 4.9 g/dL (2.2-3.9); *SPE M-SPIKE Not Observed g/dL (Not Observed); *SPE PROTEIN TOTAL 7.5 g/dL (6.0-8.5); *SPEGAMMA GLOBULIN 2.1 g/dL (0.4-1.8)
[2023-07-07 12:00] VITALS: BP 146/91; TEMP 99.1; O2SAT 97
[2023-07-07 12:10] LABS: *ANA ANTI-CENTROMERE B AB <0.2 AI (0.0-0.9); *ANA ANTI-DNA(DS) AB, QN 6 IU/mL (0-9); *ANA ANTI-JO-1 <0.2 AI (0.0-0.9); *ANA ANTICHROMATIN ANTIBODY <0.2 AI (0.0-0.9); *ANA RNP ANTIBODIES 0.9 AI (0.0-0.9); *ANA SJOGREN'S ANTI-SS-A <0.2 AI (0.0-0.9); *ANA SJOGREN'S ANTI-SS-B <0.2 AI (0.0-0.9); *ANAANTI-SCLERODERMA-70 AB <0.2 AI (0.0-0.9); *ANASMITH AB <0.2 AI (0.0-0.9)
[2023-07-07] MEDS ORDERED: IV NS 0.9% 250 ML IV PRN (13:30)
[2023-07-07] MEDS: EPOETIN ALFA (10,000 UNIT) 10,000 UNIT/ML VIAL SQ SCH (14:34)
[2023-07-07] MEDS ORDERED: VANCOMYCIN 1.5 GM in IV D5W 500ml IV ONE (15:00)
[2023-07-07 16:00] VITALS: BP 140/89; TEMP 99; O2SAT 97
[2023-07-07 16:10] LABS: PTH, INTACT 78 pg/mL (15-65)
[2023-07-07 20:00] VITALS: BP 151/65; TEMP 99.1; O2SAT 98
[2023-07-07] MEDS: MEROPENEM 500 MG in IV NS 0.9% 50 ML IV SCH (21:26)
[2023-07-08] VITALS: BP 146/92; TEMP 100.8; O2SAT 97
[2023-07-08] MEDS: ACETAMINOPHEN 650 MG/20.3 ML UDC GT PRN (01:30)
[2023-07-08 04:00] VITALS: BP 149/98; TEMP 99.7; O2SAT 98
[2023-07-08] MEDS: hydrALAZINE HCL 50 MG TABLET GT SCH ×3 (04:58→21:16)
[2023-07-08] MEDS: ISOSORBIDE DINITRATE (20MG) 20 MG TABLET GT SCH ×3 (04:58→21:16)
[2023-07-08] MEDS: GABAPENTIN 100 MG CAPSULE GT SCH ×3 (04:58→21:16)
[2023-07-08 06:16] LABS: BASOPHILS # (AUTO) 0.1 K/uL (0.0-0.2); BASOPHILS % (AUTO) 0.8 % (0.0-2.0); EOSINOPHILS # (AUTO) 0.4 K/uL (0.0-0.7); EOSINOPHILS % (AUTO) 3.9 % (0.0-6.0); HEMATOCRIT 31 % (39-51); HEMOGLOBIN 9.4 g/dL (13.5-17.5); LYMPHOCYTES # (AUTO) 1.4 K/uL (0.8-4.8); LYMPHOCYTES % (AUTO) 13.1 % (20.0-44.0); MEAN CORPUSCULAR HEMOGLOBIN 26 PG (26.0-33.0); MEAN CORPUSCULAR HGB CONC 30 g/dl (31.0-36.0); MEAN CORPUSCULAR VOLUME 86 fL (80-96); MONOCYTES # (AUTO) 0.9 K/uL (0.1-1.30); MONOCYTES % (AUTO) 7.9 % (2.0-12.0); NEUTROPHILS # (AUTO) 8.1 K/uL (1.8-8.9); NEUTROPHILS % (AUTO) 74.3 % (43.0-81.0); PLATELET COUNT (AUTO) 439 K/uL (150-450); RED BLOOD CELL COUNT(AUTO) 3.58 MIL/uL (4.5-6.0); WHITE BLOOD COUNT (AUTO) 10.9 K/uL (4.3-11.0)
[2023-07-08] MEDS: GLUCERNA 1.2 1,000 ML BOTTLE NG PRN ×2 (06:18→22:25)
[2023-07-08 06:23] LABS: CALCIUM, SERUM 9.2 mg/dL (8.5-10.1); CREATININE 3.7 mg/dL (0.6-1.3); POTASSIUM 4.2 mmol/L (3.5-5.1)
[2023-07-08] MEDS: BLOOD SUGAR DIAGNOSTIC 1 EACH STRIP IN SCH ×4 (07:36→21:18)
[2023-07-08 08:00] VITALS: BP 149/98; TEMP 99.1; O2SAT 98
[2023-07-08] MEDS: DAKINS QUARTER STRENGTH (0.125%) 480 ML BOTTLE TOP SCH (08:01)
[2023-07-08] MEDS: THERAHONEY GEL 1.5 OZ TUBE TP SCH (08:01)
[2023-07-08 08:06] LABS: HEPATITIS B SURFACE AB Non Reactive (.)
[2023-07-08] MEDS: MEROPENEM 500 MG in IV NS 0.9% 50 ML IV SCH ×2 (08:22→21:15)
[2023-07-08] MEDS: BACLOFEN (10 MG) 10 MG TABLET GT SCH ×2 (08:22→21:17)
[2023-07-08] MEDS: PANTOPRAZOLE 40 MG/PACK PACK GT SCH (08:22)
[2023-07-08 12:00] VITALS: BP 129/88; TEMP 99; O2SAT 97
[2023-07-08] MEDS: VANCOMYCIN HCL 0.75 GM in IV D5W 250 ML IV SCH (15:39)
[2023-07-08 16:00] VITALS: BP 122/78; TEMP 98.4; O2SAT 97
[2023-07-08] MEDS: *INSULIN REGULAR(HUMULIN R)HUM 100 UNIT/ML VIAL SQ PRN (17:12)
[2023-07-08] MEDS: IV NS 0.9% 1,000 ML IV PRN (19:09)
[2023-07-08 20:00] VITALS: BP 149/89; TEMP 98.4; O2SAT 100
[2023-07-09] VITALS: BP 135/83; TEMP 98.2; O2SAT 98
[2023-07-09] MEDS: IV NS 0.9% 1,000 ML IV PRN (01:12)
[2023-07-09 04:00] VITALS: BP 136/95; TEMP 97.7; O2SAT 100
[2023-07-09] MEDS: hydrALAZINE HCL 50 MG TABLET GT SCH ×3 (04:53→20:25)
[2023-07-09] MEDS: GABAPENTIN 100 MG CAPSULE GT SCH ×3 (04:53→20:26)
[2023-07-09] MEDS: ISOSORBIDE DINITRATE (20MG) 20 MG TABLET GT SCH ×3 (04:54→20:26)
[2023-07-09] MEDS: BLOOD SUGAR DIAGNOSTIC 1 EACH STRIP IN SCH ×4 (07:30→22:26)
[2023-07-09 08:00] VITALS: BP 145/72; TEMP 97.5; O2SAT 98
[2023-07-09 08:56] LABS: BASOPHILS # (AUTO) 0.1 K/uL (0.0-0.2); BASOPHILS % (AUTO) 0.6 % (0.0-2.0); EOSINOPHILS # (AUTO) 0.5 K/uL (0.0-0.7); EOSINOPHILS % (AUTO) 6.1 % (0.0-6.0); HEMATOCRIT 32 % (39-51); HEMOGLOBIN 9.4 g/dL (13.5-17.5); LYMPHOCYTES # (AUTO) 1.3 K/uL (0.8-4.8); LYMPHOCYTES % (AUTO) 15.3 % (20.0-44.0); MEAN CORPUSCULAR HEMOGLOBIN 27 PG (26.0-33.0); MEAN CORPUSCULAR HGB CONC 30 g/dl (31.0-36.0); MEAN CORPUSCULAR VOLUME 91 fL (80-96); MONOCYTES # (AUTO) 0.8 K/uL (0.1-1.30); MONOCYTES % (AUTO) 9.5 % (2.0-12.0); NEUTROPHILS # (AUTO) 5.7 K/uL (1.8-8.9); NEUTROPHILS % (AUTO) 68.5 % (43.0-81.0); PLATELET COUNT (AUTO) 343 K/uL (150-450); RED BLOOD CELL COUNT(AUTO) 3.49 MIL/uL (4.5-6.0); RED CELL DISTRIBUTION WIDTH 22.9 % (11.5-15.0); WHITE BLOOD COUNT (AUTO) 8.3 K/uL (4.3-11.0)
[2023-07-09] MEDS: MEROPENEM 500 MG in IV NS 0.9% 50 ML IV SCH ×2 (09:20→20:26)
[2023-07-09] MEDS: BACLOFEN (10 MG) 10 MG TABLET GT SCH ×2 (09:21→20:25)
[2023-07-09] MEDS: PANTOPRAZOLE 40 MG/PACK PACK GT SCH (09:21)
[2023-07-09] MEDS: THERAHONEY GEL 1.5 OZ TUBE TP SCH (09:22)
[2023-07-09] MEDS: DAKINS QUARTER STRENGTH (0.125%) 480 ML BOTTLE TOP SCH (09:22)
[2023-07-09 09:25] LABS: ALBUMIN 2.1 g/dL (3.4-5.0); BILIRUBIN,TOTAL 0.2 mg/dL (0.2-1.0); CALCIUM, SERUM 8.9 mg/dL (8.5-10.1); CREATININE 3.3 mg/dL (0.6-1.3); MAGNESIUM 3.9 mg/dL (1.8-2.4); PHOSPHORUS 6.9 mg/dL (2.5-4.9); POTASSIUM 4.8 mmol/L (3.5-5.1)
[2023-07-09 12:00] VITALS: BP 154/83; TEMP 97.5; O2SAT 100
[2023-07-09] MEDS: IV NS 0.9% 1,000 ML BAG IV SCH (13:18)
[2023-07-09] MEDS: EPOETIN ALFA (10,000 UNIT) 10,000 UNIT/ML VIAL SQ SCH (15:12)
[2023-07-09] MEDS: VANCOMYCIN HCL 0.75 GM in IV D5W 250 ML IV SCH (15:20)
[2023-07-09 16:00] VITALS: BP 132/79; TEMP 97.9; O2SAT 100
[2023-07-09] MEDS: GLUCERNA 1.2 1,000 ML BOTTLE NG PRN (17:51)
[2023-07-09 20:00] VITALS: BP 153/86; TEMP 100.1; O2SAT 99
[2023-07-09] MEDS: ACETAMINOPHEN 650 MG/20.3 ML UDC GT PRN (20:26)
[2023-07-09] MEDS: INSULIN REGULAR, HUMAN 100 UNIT/ML 3 ML VIAL SQ PRN (22:26)
[2023-07-10] VITALS: BP 124/75; TEMP 98.5; O2SAT 98
[2023-07-10 04:00] VITALS: BP 148/83; TEMP 99.1; O2SAT 98
[2023-07-10] MEDS: ISOSORBIDE DINITRATE (20MG) 20 MG TABLET GT SCH ×3 (04:54→21:11)
[2023-07-10] MEDS: GABAPENTIN 100 MG CAPSULE GT SCH ×3 (04:54→21:11)
[2023-07-10] MEDS: hydrALAZINE HCL 50 MG TABLET GT SCH ×3 (04:55→21:11)
[2023-07-10 06:40] LABS: BASOPHILS % (AUTO) 0.6 % (0.0-2.0); EOSINOPHILS # (AUTO) 0.5 K/uL (0.0-0.7); EOSINOPHILS % (AUTO) 5.3 % (0.0-6.0); HEMATOCRIT 26 % (39-51); HEMOGLOBIN 8.1 g/dL (13.5-17.5); LYMPHOCYTES % (AUTO) 11.2 % (20.0-44.0); MEAN CORPUSCULAR HEMOGLOBIN 27 PG (26.0-33.0); MEAN CORPUSCULAR HGB CONC 31 g/dl (31.0-36.0); MEAN CORPUSCULAR VOLUME 87 fL (80-96); MONOCYTES # (AUTO) 0.6 K/uL (0.1-1.30); MONOCYTES % (AUTO) 7.1 % (2.0-12.0); NEUTROPHILS # (AUTO) 6.5 K/uL (1.8-8.9); NEUTROPHILS % (AUTO) 75.8 % (43.0-81.0); PLATELET COUNT (AUTO) 326 K/uL (150-450); RED BLOOD CELL COUNT(AUTO) 2.99 MIL/uL (4.5-6.0); RED CELL DISTRIBUTION WIDTH 22.1 % (11.5-15.0); WHITE BLOOD COUNT (AUTO) 8.6 K/uL (4.3-11.0)
[2023-07-10 07:02] LABS: ALBUMIN 2.1 g/dL (3.4-5.0); BILIRUBIN,TOTAL 0.3 mg/dL (0.2-1.0); CALCIUM, SERUM 8.7 mg/dL (8.5-10.1); MAGNESIUM 3.7 mg/dL (1.8-2.4); PHOSPHORUS 6.6 mg/dL (2.5-4.9); TOTAL PROTEIN, SERUM 7.7 g/dL (6.4-8.2)
[2023-07-10 08:00] VITALS: BP 137/74; TEMP 98.5; O2SAT 97
[2023-07-10] MEDS: BLOOD SUGAR DIAGNOSTIC 1 EACH STRIP IN SCH ×4 (08:12→21:38)
[2023-07-10] MEDS: BACLOFEN (10 MG) 10 MG TABLET GT SCH ×2 (09:42→21:11)
[2023-07-10] MEDS: GLUCERNA 1.2 1,000 ML BOTTLE NG PRN (09:42)
[2023-07-10] MEDS: PANTOPRAZOLE 40 MG/PACK PACK GT SCH (09:44)
[2023-07-10] MEDS: MEROPENEM 500 MG in IV NS 0.9% 50 ML IV SCH ×2 (09:45→21:12)
[2023-07-10] MEDS: DAKINS QUARTER STRENGTH (0.125%) 480 ML BOTTLE TOP SCH (09:45)
[2023-07-10] MEDS: IV NS 0.9% 1,000 ML BAG IV SCH (09:45)
[2023-07-10] MEDS: THERAHONEY GEL 1.5 OZ TUBE TP SCH (09:46)
[2023-07-10 12:00] VITALS: BP_SYST 125; BP_SYST 140; BP_DIAS 75; BP_DIAS 81; TEMP 98.5; O2SAT 97; O2SAT 98
[2023-07-10 16:00] VITALS: BP 128/79; TEMP 98.2; O2SAT 97
[2023-07-10 20:00] VITALS: BP 138/78; TEMP 98.8; O2SAT 98
[2023-07-11] VITALS: BP 125/68; TEMP 99.3; O2SAT 97
[2023-07-11] MEDS: GLUCERNA 1.2 1,000 ML BOTTLE NG PRN (03:38)
[2023-07-11 04:00] VITALS: BP 134/74; TEMP 98.6; O2SAT 98
[2023-07-11] MEDS: hydrALAZINE HCL 50 MG TABLET GT SCH ×3 (05:52→21:27)
[2023-07-11] MEDS: ISOSORBIDE DINITRATE (20MG) 20 MG TABLET GT SCH ×3 (05:53→21:26)
[2023-07-11] MEDS: GABAPENTIN 100 MG CAPSULE GT SCH ×3 (05:53→21:26)
[2023-07-11] MEDS: BLOOD SUGAR DIAGNOSTIC 1 EACH STRIP IN SCH ×4 (05:56→22:05)
[2023-07-11 06:40] LABS: CALCIUM, SERUM 8.7 mg/dL (8.5-10.1); CREATININE 3.1 mg/dL (0.6-1.3); POTASSIUM 4.2 mmol/L (3.5-5.1)
[2023-07-11 08:00] VITALS: BP 107/66; TEMP 98.6; O2SAT 98
[2023-07-11] MEDS: BACLOFEN (10 MG) 10 MG TABLET GT SCH ×2 (08:53→21:26)
[2023-07-11] MEDS: MEROPENEM 500 MG in IV NS 0.9% 50 ML IV SCH ×2 (08:53→21:27)
[2023-07-11] MEDS: PANTOPRAZOLE 40 MG/PACK PACK GT SCH (08:53)
[2023-07-11 08:54] LABS: OCCULT BLOOD STOOL POSITIVE (NEGATIVE)
[2023-07-11] MEDS ORDERED: IV D5W 1,000 ML IV ONE (10:30)
[2023-07-11] MEDS: DAKINS QUARTER STRENGTH (0.125%) 480 ML BOTTLE TOP SCH (11:50)
[2023-07-11] MEDS: THERAHONEY GEL 1.5 OZ TUBE TP SCH (11:50)
[2023-07-11 12:00] VITALS: BP 110/73; TEMP 98.3; O2SAT 98
[2023-07-11] MEDS: EPOETIN ALFA (10,000 UNIT) 10,000 UNIT/ML VIAL SQ SCH (14:22)
[2023-07-11 16:00] VITALS: BP 147/104; TEMP 98.6; O2SAT 98
[2023-07-11 20:00] VITALS: BP 153/94; TEMP 100; O2SAT 96
[2023-07-11] MEDS: ACETAMINOPHEN 650 MG/20.3 ML UDC GT PRN (23:26)
[2023-07-12] VITALS: BP 124/78; TEMP 98.6; O2SAT 98
[2023-07-12] MEDS: GLUCERNA 1.2 1,000 ML BOTTLE NG PRN ×2 (00:31→17:58)
[2023-07-12 04:00] VITALS: BP 146/93; TEMP 100.6; O2SAT 98
[2023-07-12] MEDS: GABAPENTIN 100 MG CAPSULE GT SCH ×3 (04:20→22:44)
[2023-07-12] MEDS: hydrALAZINE HCL 50 MG TABLET GT SCH ×3 (04:26→22:45)
[2023-07-12] MEDS: ISOSORBIDE DINITRATE (20MG) 20 MG TABLET GT SCH ×3 (05:20→22:44)
[2023-07-12] MEDS: ACETAMINOPHEN 650 MG/20.3 ML UDC GT PRN (05:36)
[2023-07-12 06:37] LABS: CALCIUM, SERUM 8.8 mg/dL (8.5-10.1); CREATININE 2.2 mg/dL (0.6-1.3)
[2023-07-12] MEDS ORDERED: VANCOMYCIN POST DIALYSIS 500MG IV PRN ×2 (07:00)
[2023-07-12] MEDS: BLOOD SUGAR DIAGNOSTIC 1 EACH STRIP IN SCH ×4 (07:58→22:45)
[2023-07-12 08:00] VITALS: BP 129/79; TEMP 97.9; O2SAT 98
[2023-07-12] MEDS: PANTOPRAZOLE 40 MG/PACK PACK GT SCH (08:34)
[2023-07-12] MEDS: MEROPENEM 500 MG in IV NS 0.9% 50 ML IV SCH ×2 (08:34→22:33)
[2023-07-12] MEDS: BACLOFEN (10 MG) 10 MG TABLET GT SCH ×2 (08:34→22:44)
[2023-07-12] MEDS: DAKINS QUARTER STRENGTH (0.125%) 480 ML BOTTLE TOP SCH (08:37)
[2023-07-12] MEDS: THERAHONEY GEL 1.5 OZ TUBE TP SCH (10:06)
[2023-07-12 12:00] VITALS: BP 129/79; TEMP 97.9; O2SAT 98
[2023-07-12 16:00] VITALS: BP 169/90; TEMP 98.8; O2SAT 98
[2023-07-12 20:00] VITALS: BP 127/91; TEMP 97.9; O2SAT 96
[2023-07-12] MEDS: *INSULIN REGULAR(HUMULIN R)HUM 100 UNIT/ML VIAL SQ PRN (22:46)
[2023-07-13] VITALS: BP 127/91; TEMP 98; O2SAT 95
[2023-07-13 04:00] VITALS: BP 132/71; TEMP 98; O2SAT 96
[2023-07-13] MEDS: GABAPENTIN 100 MG CAPSULE GT SCH ×3 (05:44→20:40)
[2023-07-13] MEDS: hydrALAZINE HCL 50 MG TABLET GT SCH ×3 (05:44→20:34)
[2023-07-13] MEDS: ISOSORBIDE DINITRATE (20MG) 20 MG TABLET GT SCH ×3 (05:44→20:44)
[2023-07-13 06:36] LABS: CREATININE 2.2 mg/dL (0.6-1.3); POTASSIUM 3.9 mmol/L (3.5-5.1)
[2023-07-13 08:00] VITALS: BP 124/74; TEMP 98.2; O2SAT 99
[2023-07-13] MEDS: BLOOD SUGAR DIAGNOSTIC 1 EACH STRIP IN SCH ×4 (08:11→22:04)
[2023-07-13] MEDS: BACLOFEN (10 MG) 10 MG TABLET GT SCH ×2 (08:14→20:40)
[2023-07-13] MEDS: MEROPENEM 500 MG in IV NS 0.9% 50 ML IV SCH ×2 (08:14→20:43)
[2023-07-13] MEDS: PANTOPRAZOLE 40 MG/PACK PACK GT SCH (08:14)
[2023-07-13] MEDS: THERAHONEY GEL 1.5 OZ TUBE TP SCH (08:15)
[2023-07-13] MEDS: DAKINS QUARTER STRENGTH (0.125%) 480 ML BOTTLE TOP SCH (08:15)
[2023-07-13] MEDS: GLUCERNA 1.2 1,000 ML BOTTLE NG PRN (09:27)
[2023-07-13 12:00] VITALS: BP 112/60; TEMP 98.3; O2SAT 99
[2023-07-13] MEDS: INSULIN REGULAR, HUMAN 100 UNIT/ML 3 ML VIAL SQ PRN ×2 (12:10→16:43)
[2023-07-13 16:00] VITALS: BP 95/67; TEMP 99.9; O2SAT 99
[2023-07-13] MEDS: ACETAMINOPHEN 650 MG/20.3 ML UDC GT PRN (16:43)
[2023-07-13 20:00] VITALS: BP 105/74; TEMP 98.4; O2SAT 100
[2023-07-13] MEDS: *INSULIN REGULAR(HUMULIN R)HUM 100 UNIT/ML VIAL SQ PRN (22:05)
[2023-07-14] VITALS (8 sets, daily range): BP systolic 92–131; BP diastolic 61–82; TEMP 98.1–98.8; O2SAT 97–100
[2023-07-14] MEDS: GLUCERNA 1.2 1,000 ML BOTTLE NG PRN (04:07)
[2023-07-14] MEDS: GABAPENTIN 100 MG CAPSULE GT SCH ×3 (04:19→21:15)
[2023-07-14] MEDS: hydrALAZINE HCL 50 MG TABLET GT SCH ×3 (05:34→21:00)
[2023-07-14] MEDS: ISOSORBIDE DINITRATE (20MG) 20 MG TABLET GT SCH ×3 (05:34→21:00)
[2023-07-14 06:40] LABS: CREATININE 2.1 mg/dL (0.6-1.3); POTASSIUM 4.4 mmol/L (3.5-5.1)
[2023-07-14] MEDS ORDERED: LIDOCAINE 1%-EPI 1:100,000 20 ML VIAL TP ONE (07:30)
[2023-07-14] MEDS ORDERED: SILVER NITRATE APPLICATOR 1 EA BOX TP PRN (07:30)
[2023-07-14] MEDS: BLOOD SUGAR DIAGNOSTIC 1 EACH STRIP IN SCH ×4 (07:53→22:14)
[2023-07-14] MEDS: BACLOFEN (10 MG) 10 MG TABLET GT SCH ×2 (09:41→21:16)
[2023-07-14] MEDS: PANTOPRAZOLE 40 MG/PACK PACK GT SCH (09:42)
[2023-07-14] MEDS: THERAHONEY GEL 1.5 OZ TUBE TP SCH (09:42)
[2023-07-14] MEDS: DAKINS QUARTER STRENGTH (0.125%) 480 ML BOTTLE TOP SCH (09:42)
[2023-07-14] MEDS: MEROPENEM 500 MG in IV NS 0.9% 50 ML IV SCH ×2 (09:44→21:16)
[2023-07-14] MEDS: NEPRO 1,000 ML BOTTLE GT PRN (11:05)
[2023-07-14] MEDS: EPOETIN ALFA (10,000 UNIT) 10,000 UNIT/ML VIAL SQ SCH (15:17)
[2023-07-14] MEDS: ARGININE/GLUTAMINE/CALCIUM BMB 1 EACH POWD.PACK GT SCH (17:33)
[2023-07-14] MEDS: PROSOURCE / PROSTAT (PYXIS) 30 ML UDC GT SCH (17:34)
[2023-07-15] VITALS: BP 112/66; TEMP 98.6; O2SAT 100
[2023-07-15 04:00] VITALS: BP 110/88; TEMP 98.6; O2SAT 100
[2023-07-15] MEDS: GABAPENTIN 100 MG CAPSULE GT SCH ×3 (05:00→21:20)
[2023-07-15] MEDS: ISOSORBIDE DINITRATE (20MG) 20 MG TABLET GT SCH ×3 (05:00→21:21)
[2023-07-15] MEDS: hydrALAZINE HCL 50 MG TABLET GT SCH ×3 (05:00→21:21)
[2023-07-15 06:49] LABS: BASOPHILS % (AUTO) 0.5 % (0.0-2.0); EOSINOPHILS # (AUTO) 0.3 K/uL (0.0-0.7); EOSINOPHILS % (AUTO) 5.4 % (0.0-6.0); HEMATOCRIT 29 % (39-51); LYMPHOCYTES # (AUTO) 1.2 K/uL (0.8-4.8); MEAN CORPUSCULAR HEMOGLOBIN 27 PG (26.0-33.0); MEAN CORPUSCULAR HGB CONC 31 g/dl (31.0-36.0); MEAN CORPUSCULAR VOLUME 86 fL (80-96); MONOCYTES # (AUTO) 0.6 K/uL (0.1-1.30); MONOCYTES % (AUTO) 10.3 % (2.0-12.0); NEUTROPHILS % (AUTO) 64.8 % (43.0-81.0); PLATELET COUNT (AUTO) 322 K/uL (150-450); RED BLOOD CELL COUNT(AUTO) 3.32 MIL/uL (4.5-6.0); RED CELL DISTRIBUTION WIDTH 22.1 % (11.5-15.0); WHITE BLOOD COUNT (AUTO) 6.2 K/uL (4.3-11.0)
[2023-07-15 06:59] LABS: CALCIUM, SERUM 9.2 mg/dL (8.5-10.1); CREATININE 2.9 mg/dL (0.6-1.3); MAGNESIUM 3.7 mg/dL (1.8-2.4); PHOSPHORUS 6.9 mg/dL (2.5-4.9); POTASSIUM 3.8 mmol/L (3.5-5.1)
[2023-07-15] MEDS: BLOOD SUGAR DIAGNOSTIC 1 EACH STRIP IN SCH ×4 (07:37→22:10)
[2023-07-15 08:00] VITALS: BP 121/73; TEMP 98.4; O2SAT 100
[2023-07-15] MEDS: THERAHONEY GEL 1.5 OZ TUBE TP SCH (08:07)
[2023-07-15] MEDS: DAKINS QUARTER STRENGTH (0.125%) 480 ML BOTTLE TOP SCH (08:07)
[2023-07-15] MEDS: BACLOFEN (10 MG) 10 MG TABLET GT SCH ×2 (08:18→21:20)
[2023-07-15] MEDS: PANTOPRAZOLE 40 MG/PACK PACK GT SCH (08:19)
[2023-07-15] MEDS: ARGININE/GLUTAMINE/CALCIUM BMB 1 EACH POWD.PACK GT SCH ×2 (08:19→16:53)
[2023-07-15] MEDS: MEROPENEM 500 MG in IV NS 0.9% 50 ML IV SCH ×2 (08:19→21:20)
[2023-07-15] MEDS: PROSOURCE / PROSTAT (PYXIS) 30 ML UDC GT SCH ×2 (08:19→16:53)
[2023-07-15 11:40] LABS: INR 1.01 (0.91-1.10); PROTHROMBIN TIME 10.7 SECS (9.2-11.1)
[2023-07-15 12:00] VITALS: BP 121/72; TEMP 98.6; O2SAT 99
[2023-07-15] MEDS ORDERED: IOHEXOL 0 ML IV ONE (12:05)
[2023-07-15] MEDS ORDERED: LIDOCAINE 1% INJ 50 ML MDV IJ ONE (12:06)
[2023-07-15] MEDS ORDERED: HEPARIN SODIUM, PORCINE 1,000 UNIT/ML VIAL ONE ×2 (12:06→12:07)
[2023-07-15] MEDS ORDERED: ANESTHESIA TRAY IN PYXIS 1 EA TRAY MC ONE (12:06)
[2023-07-15 16:00] VITALS: BP 140/80; TEMP 98; O2SAT 100
[2023-07-15 18:18] LABS: IRON, SERUM 18 ug/dl (50-175); TOTAL IRON BINDING CAPACITY 265 ug/dl (250-450)
[2023-07-15 18:35] LABS: FERRITIN 143 ng/mL (8-388)
[2023-07-15 20:00] VITALS: BP 150/86; TEMP 98.8; O2SAT 100
[2023-07-15] MEDS: NEPRO 1,000 ML BOTTLE GT PRN (23:39)
[2023-07-16] VITALS: BP 120/85; TEMP 99; O2SAT 96
[2023-07-16 04:00] VITALS: BP 137/91; TEMP 99.1; O2SAT 99
[2023-07-16] MEDS: ISOSORBIDE DINITRATE (20MG) 20 MG TABLET GT SCH ×3 (04:13→20:47)
[2023-07-16] MEDS: GABAPENTIN 100 MG CAPSULE GT SCH ×3 (04:13→20:46)
[2023-07-16] MEDS: hydrALAZINE HCL 50 MG TABLET GT SCH ×3 (04:14→20:47)
[2023-07-16] MEDS: BLOOD SUGAR DIAGNOSTIC 1 EACH STRIP IN SCH ×4 (07:03→21:26)
[2023-07-16 08:00] VITALS: BP 114/72; TEMP 98.4; O2SAT 100
[2023-07-16] MEDS: THERAHONEY GEL 1.5 OZ TUBE TP SCH (08:00)
[2023-07-16] MEDS: ARGININE/GLUTAMINE/CALCIUM BMB 1 EACH POWD.PACK GT SCH ×2 (08:00→16:22)
[2023-07-16] MEDS: DAKINS QUARTER STRENGTH (0.125%) 480 ML BOTTLE TOP SCH (08:00)
[2023-07-16] MEDS: PROSOURCE / PROSTAT (PYXIS) 30 ML UDC GT SCH ×2 (08:00→16:22)
[2023-07-16] MEDS: MEROPENEM 500 MG in IV NS 0.9% 50 ML IV SCH (08:03)
[2023-07-16] MEDS: PANTOPRAZOLE 40 MG/PACK PACK GT SCH (08:03)
[2023-07-16] MEDS: BACLOFEN (10 MG) 10 MG TABLET GT SCH ×2 (08:03→20:47)
[2023-07-16 12:00] VITALS: BP 104/67; TEMP 98.7; O2SAT 98
[2023-07-16] MEDS ORDERED: ALBUMIN 25% 25 GM in PREMIX 1 EA IV PRN (13:30)
[2023-07-16] MEDS: EPOETIN ALFA (10,000 UNIT) 10,000 UNIT/ML VIAL SQ SCH (15:30)
[2023-07-16 16:00] VITALS: BP 110/80; TEMP 99.1; O2SAT 98
[2023-07-16] MEDS: INSULIN REGULAR, HUMAN 100 UNIT/ML 3 ML VIAL SQ PRN (16:41)
[2023-07-16 20:00] VITALS: BP 151/95; TEMP 98.8; O2SAT 98
[2023-07-16] MEDS: NEPRO 1,000 ML BOTTLE GT PRN (20:26)
[2023-07-16] MEDS: *INSULIN REGULAR(HUMULIN R)HUM 100 UNIT/ML VIAL SQ PRN (21:27)
[2023-07-17] VITALS: BP 121/79; TEMP 98.2; O2SAT 98
[2023-07-17 04:00] VITALS: BP 128/82; TEMP 97.8; O2SAT 98
[2023-07-17] MEDS: ISOSORBIDE DINITRATE (20MG) 20 MG TABLET GT SCH ×3 (04:35→21:18)
[2023-07-17] MEDS: hydrALAZINE HCL 50 MG TABLET GT SCH ×3 (04:35→21:16)
[2023-07-17] MEDS: GABAPENTIN 100 MG CAPSULE GT SCH ×3 (04:35→21:17)
[2023-07-17 08:00] VITALS: BP 127/77; TEMP 98.7; O2SAT 100
[2023-07-17] MEDS: BLOOD SUGAR DIAGNOSTIC 1 EACH STRIP IN SCH ×4 (08:02→22:00)
[2023-07-17] MEDS: PROSOURCE / PROSTAT (PYXIS) 30 ML UDC GT SCH ×2 (08:46→16:07)
[2023-07-17] MEDS: ARGININE/GLUTAMINE/CALCIUM BMB 1 EACH POWD.PACK GT SCH ×2 (08:46→16:07)
[2023-07-17] MEDS: BACLOFEN (10 MG) 10 MG TABLET GT SCH ×2 (08:47→21:17)
[2023-07-17] MEDS: DAKINS QUARTER STRENGTH (0.125%) 480 ML BOTTLE TOP SCH (08:47)
[2023-07-17] MEDS: PANTOPRAZOLE 40 MG/PACK PACK GT SCH (08:47)
[2023-07-17] MEDS: THERAHONEY GEL 1.5 OZ TUBE TP SCH (08:48)
[2023-07-17 10:22] LABS: CALCIUM, SERUM 9.7 mg/dL (8.5-10.1); CREATININE 2.8 mg/dL (0.6-1.3); POTASSIUM 4.9 mmol/L (3.5-5.1)
[2023-07-17 10:38] LABS: BASOPHILS % (AUTO) 0.5 % (0.0-2.0); EOSINOPHILS # (AUTO) 0.3 K/uL (0.0-0.7); EOSINOPHILS % (AUTO) 4.5 % (0.0-6.0); HEMATOCRIT 34 % (39-51); HEMOGLOBIN 10.4 g/dL (13.5-17.5); LYMPHOCYTES # (AUTO) 1.2 K/uL (0.8-4.8); LYMPHOCYTES % (AUTO) 18.5 % (20.0-44.0); MEAN CORPUSCULAR HEMOGLOBIN 27 PG (26.0-33.0); MEAN CORPUSCULAR HGB CONC 31 g/dl (31.0-36.0); MEAN CORPUSCULAR VOLUME 88 fL (80-96); MONOCYTES # (AUTO) 0.9 K/uL (0.1-1.30); MONOCYTES % (AUTO) 14.1 % (2.0-12.0); NEUTROPHILS # (AUTO) 4.2 K/uL (1.8-8.9); NEUTROPHILS % (AUTO) 62.4 % (43.0-81.0); PLATELET COUNT (AUTO) 311 K/uL (150-450); RED BLOOD CELL COUNT(AUTO) 3.85 MIL/uL (4.5-6.0); RED CELL DISTRIBUTION WIDTH 21.4 % (11.5-15.0); WHITE BLOOD COUNT (AUTO) 6.7 K/uL (4.3-11.0)
[2023-07-17 12:00] VITALS: BP 121/75; TEMP 98.7; O2SAT 98
[2023-07-17 16:00] VITALS: BP 101/60; TEMP 98.6; O2SAT 100
[2023-07-17 20:00] VITALS: BP 115/75; TEMP 97.9; O2SAT 99
[2023-07-17] MEDS: *INSULIN REGULAR(HUMULIN R)HUM 100 UNIT/ML VIAL SQ PRN (23:37)
[2023-07-18] VITALS: BP 106/62; TEMP 98.4; O2SAT 99
[2023-07-18 04:00] VITALS: BP 122/79; TEMP 98.4; O2SAT 100
[2023-07-18] MEDS: GABAPENTIN 100 MG CAPSULE GT SCH ×3 (06:20→20:29)
[2023-07-18] MEDS: hydrALAZINE HCL 50 MG TABLET GT SCH ×3 (06:21→20:27)
[2023-07-18] MEDS: ISOSORBIDE DINITRATE (20MG) 20 MG TABLET GT SCH ×3 (06:22→20:29)
[2023-07-18 08:00] VITALS: BP 120/77; TEMP 98.2; O2SAT 100
[2023-07-18] MEDS: BLOOD SUGAR DIAGNOSTIC 1 EACH STRIP IN SCH ×4 (08:04→22:00)
[2023-07-18] MEDS: INSULIN REGULAR, HUMAN 100 UNIT/ML 3 ML VIAL SQ PRN ×3 (08:05→16:49)
[2023-07-18] MEDS: BACLOFEN (10 MG) 10 MG TABLET GT SCH ×2 (08:07→20:28)
[2023-07-18] MEDS: PROSOURCE / PROSTAT (PYXIS) 30 ML UDC GT SCH ×2 (08:07→16:19)
[2023-07-18] MEDS: ARGININE/GLUTAMINE/CALCIUM BMB 1 EACH POWD.PACK GT SCH ×2 (08:07→16:19)
[2023-07-18] MEDS: PANTOPRAZOLE 40 MG/PACK PACK GT SCH (08:07)
[2023-07-18] MEDS: DAKINS QUARTER STRENGTH (0.125%) 480 ML BOTTLE TOP SCH (08:08)
[2023-07-18] MEDS: THERAHONEY GEL 1.5 OZ TUBE TP SCH (09:05)
[2023-07-18 12:00] VITALS: BP 115/82; TEMP 98.4; O2SAT 100
[2023-07-18 12:14] LABS: BASOPHILS % (AUTO) 0.6 % (0.0-2.0); EOSINOPHILS # (AUTO) 0.5 K/uL (0.0-0.7); EOSINOPHILS % (AUTO) 6.8 % (0.0-6.0); HEMATOCRIT 30 % (39-51); HEMOGLOBIN 9.2 g/dL (13.5-17.5); LYMPHOCYTES # (AUTO) 1.3 K/uL (0.8-4.8); LYMPHOCYTES % (AUTO) 17.1 % (20.0-44.0); MEAN CORPUSCULAR HEMOGLOBIN 27 PG (26.0-33.0); MEAN CORPUSCULAR HGB CONC 31 g/dl (31.0-36.0); MEAN CORPUSCULAR VOLUME 87 fL (80-96); MONOCYTES # (AUTO) 0.7 K/uL (0.1-1.30); NEUTROPHILS % (AUTO) 66.5 % (43.0-81.0); PLATELET COUNT (AUTO) 319 K/uL (150-450); RED BLOOD CELL COUNT(AUTO) 3.42 MIL/uL (4.5-6.0); RED CELL DISTRIBUTION WIDTH 21.4 % (11.5-15.0); WHITE BLOOD COUNT (AUTO) 7.5 K/uL (4.3-11.0)
[2023-07-18 12:25] LABS: ALBUMIN 2.1 g/dL (3.4-5.0); BILIRUBIN,TOTAL 0.3 mg/dL (0.2-1.0); CALCIUM, SERUM 9.5 mg/dL (8.5-10.1); CREATININE 3.3 mg/dL (0.6-1.3); MAGNESIUM 3.7 mg/dL (1.8-2.4); PHOSPHORUS 4.8 mg/dL (2.5-4.9); POTASSIUM 3.9 mmol/L (3.5-5.1); TOTAL PROTEIN, SERUM 8.1 g/dL (6.4-8.2)
[2023-07-18] MEDS: EPOETIN ALFA (10,000 UNIT) 10,000 UNIT/ML VIAL SQ SCH (14:50)
[2023-07-18] MEDS: NEPRO 1,000 ML BOTTLE GT PRN (14:59)
[2023-07-18 16:00] VITALS: BP 122/86; TEMP 98.4; O2SAT 100
[2023-07-18 20:00] VITALS: BP 138/89; TEMP 98.2; O2SAT 100
[2023-07-18] MEDS: *INSULIN REGULAR(HUMULIN R)HUM 100 UNIT/ML VIAL SQ PRN (23:09)
[2023-07-19] VITALS: BP 112/78; TEMP 97.9; O2SAT 99
[2023-07-19 04:00] VITALS: BP 127/80; TEMP 98.5; O2SAT 100
[2023-07-19] MEDS: GABAPENTIN 100 MG CAPSULE GT SCH ×3 (05:10→21:10)
[2023-07-19] MEDS: hydrALAZINE HCL 50 MG TABLET GT SCH ×3 (05:10→21:08)
[2023-07-19] MEDS: ISOSORBIDE DINITRATE (20MG) 20 MG TABLET GT SCH ×3 (05:11→21:09)
[2023-07-19 07:41] LABS: BASOPHILS % (AUTO) 0.7 % (0.0-2.0); EOSINOPHILS # (AUTO) 0.3 K/uL (0.0-0.7); EOSINOPHILS % (AUTO) 5.4 % (0.0-6.0); HEMATOCRIT 33 % (39-51); HEMOGLOBIN 10.2 g/dL (13.5-17.5); LYMPHOCYTES # (AUTO) 1.2 K/uL (0.8-4.8); LYMPHOCYTES % (AUTO) 20.4 % (20.0-44.0); MEAN CORPUSCULAR HEMOGLOBIN 27 PG (26.0-33.0); MEAN CORPUSCULAR HGB CONC 31 g/dl (31.0-36.0); MEAN CORPUSCULAR VOLUME 87 fL (80-96); MONOCYTES # (AUTO) 0.6 K/uL (0.1-1.30); MONOCYTES % (AUTO) 10.3 % (2.0-12.0); NEUTROPHILS # (AUTO) 3.8 K/uL (1.8-8.9); NEUTROPHILS % (AUTO) 63.2 % (43.0-81.0); PLATELET COUNT (AUTO) 301 K/uL (150-450); RED BLOOD CELL COUNT(AUTO) 3.83 MIL/uL (4.5-6.0); RED CELL DISTRIBUTION WIDTH 20.7 % (11.5-15.0); WHITE BLOOD COUNT (AUTO) 6.1 K/uL (4.3-11.0)
[2023-07-19] MEDS: BLOOD SUGAR DIAGNOSTIC 1 EACH STRIP IN SCH ×4 (07:55→22:00)
[2023-07-19 08:00] VITALS: BP 112/70; TEMP 98.1; O2SAT 100
[2023-07-19] MEDS: PROSOURCE / PROSTAT (PYXIS) 30 ML UDC GT SCH ×2 (08:01→16:34)
[2023-07-19 08:02] LABS: CALCIUM, SERUM 9.8 mg/dL (8.5-10.1); CREATININE 2.5 mg/dL (0.6-1.3); MAGNESIUM 3.4 mg/dL (1.8-2.4); POTASSIUM 4.7 mmol/L (3.5-5.1)
[2023-07-19] MEDS: DAKINS QUARTER STRENGTH (0.125%) 480 ML BOTTLE TOP SCH (09:10)
[2023-07-19] MEDS: THERAHONEY GEL 1.5 OZ TUBE TP SCH (09:10)
[2023-07-19] MEDS: ARGININE/GLUTAMINE/CALCIUM BMB 1 EACH POWD.PACK GT SCH ×2 (09:11→16:34)
[2023-07-19] MEDS: BACLOFEN (10 MG) 10 MG TABLET GT SCH ×2 (09:14→21:09)
[2023-07-19] MEDS: PANTOPRAZOLE 40 MG/PACK PACK GT SCH (09:14)
[2023-07-19 12:00] VITALS: BP 114/70; TEMP 98.2; O2SAT 98
[2023-07-19] MEDS: NEPRO 1,000 ML BOTTLE GT PRN (13:47)
[2023-07-19 16:00] VITALS: BP 118/72; TEMP 98.2; O2SAT 98
[2023-07-19 20:00] VITALS: BP 138/66; TEMP 98.2; O2SAT 98
[2023-07-19] MEDS ORDERED: MEROPENEM 500 MG in IV NS 0.9% 50 ML IV SCH (21:00)
[2023-07-19] MEDS ORDERED: MEROPENEM 500MG/NS 50 ML PB IV ONE (21:15)
[2023-07-19] MEDS ORDERED: D5W IV ONE (22:00)
[2023-07-19] MEDS ORDERED: GENTAMICIN IV ONE (22:00)
[2023-07-19] MEDS: *INSULIN REGULAR(HUMULIN R)HUM 100 UNIT/ML VIAL SQ PRN (23:06)
[2023-07-19] MEDS ORDERED: GENTAMICIN 80 MG/2 ML VIAL ONE (23:24)
[2023-07-20] VITALS (7 sets, daily range): BP systolic 107–128; BP diastolic 64–85; TEMP 98–98.7; O2SAT 98
[2023-07-20] MEDS: GABAPENTIN 100 MG CAPSULE GT SCH ×3 (06:24→20:11)
[2023-07-20] MEDS: ISOSORBIDE DINITRATE (20MG) 20 MG TABLET GT SCH ×3 (06:25→20:17)
[2023-07-20] MEDS: hydrALAZINE HCL 50 MG TABLET GT SCH ×3 (06:26→20:18)
[2023-07-20] MEDS: BLOOD SUGAR DIAGNOSTIC 1 EACH STRIP IN SCH ×4 (07:29→22:19)
[2023-07-20] MEDS: PROSOURCE / PROSTAT (PYXIS) 30 ML UDC GT SCH ×2 (07:37→16:23)
[2023-07-20 07:40] LABS: BASOPHILS % (AUTO) 0.5 % (0.0-2.0); EOSINOPHILS # (AUTO) 0.3 K/uL (0.0-0.7); EOSINOPHILS % (AUTO) 3.8 % (0.0-6.0); HEMATOCRIT 33 % (39-51); HEMOGLOBIN 10.3 g/dL (13.5-17.5); LYMPHOCYTES # (AUTO) 1.5 K/uL (0.8-4.8); LYMPHOCYTES % (AUTO) 19.2 % (20.0-44.0); MEAN CORPUSCULAR HEMOGLOBIN 27 PG (26.0-33.0); MEAN CORPUSCULAR HGB CONC 31 g/dl (31.0-36.0); MEAN CORPUSCULAR VOLUME 85 fL (80-96); MONOCYTES # (AUTO) 0.5 K/uL (0.1-1.30); MONOCYTES % (AUTO) 5.8 % (2.0-12.0); NEUTROPHILS # (AUTO) 5.7 K/uL (1.8-8.9); NEUTROPHILS % (AUTO) 70.7 % (43.0-81.0); PLATELET COUNT (AUTO) 431 K/uL (150-450); RED BLOOD CELL COUNT(AUTO) 3.88 MIL/uL (4.5-6.0); RED CELL DISTRIBUTION WIDTH 20.8 % (11.5-15.0); WHITE BLOOD COUNT (AUTO) 8.1 K/uL (4.3-11.0)
[2023-07-20 08:30] LABS: ALBUMIN 2.5 g/dL (3.4-5.0); BILIRUBIN,TOTAL 0.5 mg/dL (0.2-1.0); CALCIUM, SERUM 9.4 mg/dL (8.5-10.1); CREATININE 1.9 mg/dL (0.6-1.3); MAGNESIUM 3.2 mg/dL (1.8-2.4); PHOSPHORUS 3.4 mg/dL (2.5-4.9); POTASSIUM 4.9 mmol/L (3.5-5.1); TOTAL PROTEIN, SERUM 9.7 g/dL (6.4-8.2)
[2023-07-20] MEDS: ARGININE/GLUTAMINE/CALCIUM BMB 1 EACH POWD.PACK GT SCH ×2 (09:02→16:23)
[2023-07-20] MEDS: DAKINS QUARTER STRENGTH (0.125%) 480 ML BOTTLE TOP SCH (09:02)
[2023-07-20] MEDS: THERAHONEY GEL 1.5 OZ TUBE TP SCH (09:02)
[2023-07-20] MEDS: MEROPENEM 500 MG in IV NS 0.9% 50 ML IV SCH ×2 (09:10→20:10)
[2023-07-20] MEDS: PANTOPRAZOLE 40 MG/PACK PACK GT SCH (09:10)
[2023-07-20] MEDS: BACLOFEN (10 MG) 10 MG TABLET GT SCH ×2 (09:12→20:12)
[2023-07-20] MEDS: NEPRO 1,000 ML BOTTLE GT PRN (15:58)
[2023-07-20] MEDS: INSULIN REGULAR, HUMAN 100 UNIT/ML 3 ML VIAL SQ PRN (22:23)
[2023-07-20] MEDS ORDERED: GENTAMICIN 140 MG in IV D5W 100 ML IV SCH (23:00)
[2023-07-21] VITALS: BP 114/80; TEMP 97.9; O2SAT 99
[2023-07-21 04:00] VITALS: BP 123/81; TEMP 98.4; O2SAT 99
[2023-07-21] MEDS: GABAPENTIN 100 MG CAPSULE GT SCH ×3 (05:21→21:39)
[2023-07-21] MEDS: hydrALAZINE HCL 50 MG TABLET GT SCH ×3 (05:21→21:37)
[2023-07-21] MEDS: ISOSORBIDE DINITRATE (20MG) 20 MG TABLET GT SCH ×3 (05:22→21:38)
[2023-07-21 07:11] LABS: CALCIUM, SERUM 9.6 mg/dL (8.5-10.1); CREATININE 2.9 mg/dL (0.6-1.3); POTASSIUM 4.4 mmol/L (3.5-5.1)
[2023-07-21] MEDS: BLOOD SUGAR DIAGNOSTIC 1 EACH STRIP IN SCH ×4 (08:02→22:00)
[2023-07-21] MEDS: INSULIN REGULAR, HUMAN 100 UNIT/ML 3 ML VIAL SQ PRN ×3 (08:04→17:41)
[2023-07-21] MEDS: MEROPENEM 500 MG in IV NS 0.9% 50 ML IV SCH ×2 (08:18→21:40)
[2023-07-21] MEDS: BACLOFEN (10 MG) 10 MG TABLET GT SCH ×2 (08:18→21:38)
[2023-07-21] MEDS: PANTOPRAZOLE 40 MG/PACK PACK GT SCH (08:18)
[2023-07-21] MEDS: PROSOURCE / PROSTAT (PYXIS) 30 ML UDC GT SCH ×2 (08:18→17:20)
[2023-07-21] MEDS: ARGININE/GLUTAMINE/CALCIUM BMB 1 EACH POWD.PACK GT SCH ×2 (08:18→17:20)
[2023-07-21] MEDS: DAKINS QUARTER STRENGTH (0.125%) 480 ML BOTTLE TOP SCH (08:58)
[2023-07-21] MEDS: THERAHONEY GEL 1.5 OZ TUBE TP SCH (08:58)
[2023-07-21 08:59] VITALS: BP 100/61; TEMP 98.5; O2SAT 100
[2023-07-21 12:00] VITALS: BP 100/67; TEMP 98.6; O2SAT 96
[2023-07-21] MEDS: EPOETIN ALFA (10,000 UNIT) 10,000 UNIT/ML VIAL SQ SCH (15:33)
[2023-07-21] MEDS: NEPRO 1,000 ML BOTTLE GT PRN (15:40)
[2023-07-21 16:00] VITALS: BP 134/85; TEMP 97.7; O2SAT 97
[2023-07-21 20:00] VITALS: BP 119/75; TEMP 97.9; O2SAT 100
[2023-07-21] MEDS: *INSULIN REGULAR(HUMULIN R)HUM 100 UNIT/ML VIAL SQ PRN (22:51)
[2023-07-22] VITALS: BP 119/113; TEMP 98; O2SAT 100
[2023-07-22 04:00] VITALS: BP 136/79; TEMP 98.1; O2SAT 100
[2023-07-22] MEDS: hydrALAZINE HCL 50 MG TABLET GT SCH ×3 (05:08→20:32)
[2023-07-22] MEDS: ISOSORBIDE DINITRATE (20MG) 20 MG TABLET GT SCH ×3 (05:27→20:33)
[2023-07-22] MEDS: GABAPENTIN 100 MG CAPSULE GT SCH ×3 (05:29→20:33)
[2023-07-22 07:08] LABS: CALCIUM, SERUM 9.4 mg/dL (8.5-10.1); CREATININE 3.5 mg/dL (0.6-1.3)
[2023-07-22 07:36] LABS: POTASSIUM 6.3 mmol/L (3.5-5.1)
[2023-07-22 08:00] VITALS: BP 136/79; TEMP 97.9; O2SAT 100
[2023-07-22] MEDS: BLOOD SUGAR DIAGNOSTIC 1 EACH STRIP IN SCH ×4 (08:10→22:24)
[2023-07-22] MEDS: ARGININE/GLUTAMINE/CALCIUM BMB 1 EACH POWD.PACK GT SCH ×2 (08:42→16:31)
[2023-07-22] MEDS: PROSOURCE / PROSTAT (PYXIS) 30 ML UDC GT SCH ×2 (08:42→16:31)
[2023-07-22] MEDS: PANTOPRAZOLE 40 MG/PACK PACK GT SCH (08:42)
[2023-07-22] MEDS: BACLOFEN (10 MG) 10 MG TABLET GT SCH ×2 (08:43→20:32)
[2023-07-22] MEDS: MEROPENEM 500 MG in IV NS 0.9% 50 ML IV SCH ×2 (08:43→20:33)
[2023-07-22] MEDS: THERAHONEY GEL 1.5 OZ TUBE TP SCH (08:44)
[2023-07-22] MEDS: DAKINS QUARTER STRENGTH (0.125%) 480 ML BOTTLE TOP SCH (08:44)
[2023-07-22 12:00] VITALS: BP 117/75; TEMP 98; O2SAT 100
[2023-07-22] MEDS ORDERED: GENTAMICIN 100 MG in IV D5W 100 ML IV SCH (15:00)
[2023-07-22 16:00] VITALS: BP 116/85; TEMP 98.6; O2SAT 100
[2023-07-22 20:00] VITALS: BP 132/76; TEMP 98.2; O2SAT 100
[2023-07-22] MEDS: INSULIN REGULAR, HUMAN 100 UNIT/ML 3 ML VIAL SQ PRN (22:25)
[2023-07-22] MEDS ORDERED: GENTAMICIN 120 MG in IV D5W 100 ML IV SCH (23:00)
[2023-07-23] VITALS: BP 103/68; TEMP 97.5; O2SAT 100
[2023-07-23 04:00] VITALS: BP 123/69; TEMP 98.1; O2SAT 98
[2023-07-23] MEDS: GABAPENTIN 100 MG CAPSULE GT SCH ×3 (05:25→20:56)
[2023-07-23] MEDS: hydrALAZINE HCL 50 MG TABLET GT SCH ×3 (05:25→20:57)
[2023-07-23] MEDS: ISOSORBIDE DINITRATE (20MG) 20 MG TABLET GT SCH ×3 (05:26→20:57)
[2023-07-23 07:01] LABS: CALCIUM, SERUM 9.4 mg/dL (8.5-10.1); CREATININE 2.5 mg/dL (0.6-1.3); POTASSIUM 4.9 mmol/L (3.5-5.1)
[2023-07-23 08:00] VITALS: BP 111/69; TEMP 98.4; O2SAT 98
[2023-07-23] MEDS: BLOOD SUGAR DIAGNOSTIC 1 EACH STRIP IN SCH ×4 (08:08→21:16)
[2023-07-23] MEDS: PROSOURCE / PROSTAT (PYXIS) 30 ML UDC GT SCH ×2 (08:08→16:25)
[2023-07-23] MEDS: PANTOPRAZOLE 40 MG/PACK PACK GT SCH (08:09)
[2023-07-23] MEDS: DAKINS QUARTER STRENGTH (0.125%) 480 ML BOTTLE TOP SCH (08:09)
[2023-07-23] MEDS: MEROPENEM 500 MG in IV NS 0.9% 50 ML IV SCH ×2 (08:09→20:09)
[2023-07-23] MEDS: ARGININE/GLUTAMINE/CALCIUM BMB 1 EACH POWD.PACK GT SCH ×2 (08:09→16:25)
[2023-07-23] MEDS: BACLOFEN (10 MG) 10 MG TABLET GT SCH ×2 (08:09→20:56)
[2023-07-23] MEDS: THERAHONEY GEL 1.5 OZ TUBE TP SCH (08:10)
[2023-07-23] MEDS: INSULIN REGULAR, HUMAN 100 UNIT/ML 3 ML VIAL SQ PRN ×3 (08:10→17:56)
[2023-07-23 12:00] VITALS: BP 119/79; TEMP 98.8; O2SAT 99
[2023-07-23] MEDS: NEPRO 1,000 ML BOTTLE GT PRN (13:00)
[2023-07-23 14:24] LABS: HEMOGLOBIN 9.3 g/dL (13.5-17.5)
[2023-07-23 16:00] VITALS: BP 112/74; TEMP 99; O2SAT 97
[2023-07-23] MEDS: EPOETIN ALFA (10,000 UNIT) 10,000 UNIT/ML VIAL SQ SCH (16:25)
[2023-07-23 20:00] VITALS: BP 111/73; TEMP 98.2; O2SAT 99
[2023-07-24] VITALS: BP 103/68; TEMP 98.4; O2SAT 100
[2023-07-24 04:00] VITALS: BP 108/71; TEMP 98.2; O2SAT 100
[2023-07-24] MEDS: NEPRO 1,000 ML BOTTLE GT PRN (04:27)
[2023-07-24] MEDS: GABAPENTIN 100 MG CAPSULE GT SCH ×3 (04:29→21:51)
[2023-07-24] MEDS: ISOSORBIDE DINITRATE (20MG) 20 MG TABLET GT SCH ×3 (05:00→21:51)
[2023-07-24] MEDS: hydrALAZINE HCL 50 MG TABLET GT SCH ×3 (05:04→21:50)
[2023-07-24 06:53] LABS: BASOPHILS % (AUTO) 0.5 % (0.0-2.0); EOSINOPHILS # (AUTO) 0.3 K/uL (0.0-0.7); EOSINOPHILS % (AUTO) 3.6 % (0.0-6.0); HEMATOCRIT 27 % (39-51); HEMOGLOBIN 8.6 g/dL (13.5-17.5); LYMPHOCYTES # (AUTO) 1.2 K/uL (0.8-4.8); MEAN CORPUSCULAR HEMOGLOBIN 27 PG (26.0-33.0); MEAN CORPUSCULAR HGB CONC 31 g/dl (31.0-36.0); MEAN CORPUSCULAR VOLUME 85 fL (80-96); MONOCYTES # (AUTO) 0.8 K/uL (0.1-1.30); MONOCYTES % (AUTO) 9.4 % (2.0-12.0); NEUTROPHILS # (AUTO) 5.9 K/uL (1.8-8.9); NEUTROPHILS % (AUTO) 71.5 % (43.0-81.0); PLATELET COUNT (AUTO) 398 K/uL (150-450); RED BLOOD CELL COUNT(AUTO) 3.21 MIL/uL (4.5-6.0); RED CELL DISTRIBUTION WIDTH 20.7 % (11.5-15.0); WHITE BLOOD COUNT (AUTO) 8.3 K/uL (4.3-11.0)
[2023-07-24 07:20] LABS: CALCIUM, SERUM 9.6 mg/dL (8.5-10.1); CREATININE 3.3 mg/dL (0.6-1.3); MAGNESIUM 3.7 mg/dL (1.8-2.4); POTASSIUM 4.8 mmol/L (3.5-5.1)
[2023-07-24] MEDS: BLOOD SUGAR DIAGNOSTIC 1 EACH STRIP IN SCH ×4 (07:51→22:55)
[2023-07-24] MEDS: INSULIN REGULAR, HUMAN 100 UNIT/ML 3 ML VIAL SQ PRN ×3 (07:53→16:46)
[2023-07-24 08:00] VITALS: BP 125/70; TEMP 98.6; O2SAT 100
[2023-07-24 08:01] LABS: GENTAMICIN,RANDOM 3.6 ug/ml (4.0-8.0)
[2023-07-24] MEDS: ARGININE/GLUTAMINE/CALCIUM BMB 1 EACH POWD.PACK GT SCH ×2 (09:24→16:00)
[2023-07-24] MEDS: PROSOURCE / PROSTAT (PYXIS) 30 ML UDC GT SCH ×2 (09:24→16:00)
[2023-07-24] MEDS: PANTOPRAZOLE 40 MG/PACK PACK GT SCH (09:28)
[2023-07-24] MEDS: BACLOFEN (10 MG) 10 MG TABLET GT SCH ×2 (09:28→21:51)
[2023-07-24] MEDS: MEROPENEM 500 MG in IV NS 0.9% 50 ML IV SCH ×2 (09:28→22:49)
[2023-07-24] MEDS: DAKINS QUARTER STRENGTH (0.125%) 480 ML BOTTLE TOP SCH (09:47)
[2023-07-24] MEDS: THERAHONEY GEL 1.5 OZ TUBE TP SCH ×2 (09:47→18:15)
[2023-07-24 12:00] VITALS: BP 116/65; TEMP 97.4; O2SAT 100
[2023-07-24] MEDS ORDERED: GENTAMICIN 100 MG in IV D5W 50 ML IV SCH (14:00)
[2023-07-24] MEDS ORDERED: GENTAMICIN 100 MG in IV D5W 50 ML IV PRN (15:30)
[2023-07-24 16:00] VITALS: BP 134/69; TEMP 98.9; O2SAT 99
[2023-07-24 20:00] VITALS: BP_SYST 101; BP_SYST 118; BP_DIAS 70; BP_DIAS 96; TEMP 98; TEMP 98.4; O2SAT 97; O2SAT 99
[2023-07-24] MEDS: *INSULIN REGULAR(HUMULIN R)HUM 100 UNIT/ML VIAL SQ PRN (22:59)
[2023-07-25] VITALS: BP 108/82; TEMP 98.4; O2SAT 100
[2023-07-25 04:00] VITALS: BP 140/98; TEMP 97.9; O2SAT 98
[2023-07-25] MEDS: GABAPENTIN 100 MG CAPSULE GT SCH ×3 (05:53→21:36)
[2023-07-25] MEDS: hydrALAZINE HCL 50 MG TABLET GT SCH ×3 (05:53→21:37)
[2023-07-25] MEDS: ISOSORBIDE DINITRATE (20MG) 20 MG TABLET GT SCH ×3 (05:53→21:37)
[2023-07-25] MEDS: BLOOD SUGAR DIAGNOSTIC 1 EACH STRIP IN SCH ×4 (06:12→21:38)
[2023-07-25 07:17] LABS: CALCIUM, SERUM 9.4 mg/dL (8.5-10.1); CREATININE 2.6 mg/dL (0.6-1.3); POTASSIUM 3.7 mmol/L (3.5-5.1)
[2023-07-25 08:00] VITALS: BP 105/65; TEMP 97.9; O2SAT 100
[2023-07-25] MEDS: PANTOPRAZOLE 40 MG/PACK PACK GT SCH (09:18)
[2023-07-25] MEDS: ARGININE/GLUTAMINE/CALCIUM BMB 1 EACH POWD.PACK GT SCH ×2 (09:19→17:04)
[2023-07-25] MEDS: MEROPENEM 500 MG in IV NS 0.9% 50 ML IV SCH ×2 (09:19→21:35)
[2023-07-25] MEDS: PROSOURCE / PROSTAT (PYXIS) 30 ML UDC GT SCH ×2 (09:19→17:04)
[2023-07-25] MEDS: BACLOFEN (10 MG) 10 MG TABLET GT SCH ×2 (09:19→21:36)
[2023-07-25] MEDS: THERAHONEY GEL 1.5 OZ TUBE TP SCH ×2 (09:20)
[2023-07-25 11:07] LABS: BASOPHILS # (AUTO) 0.1 K/uL (0.0-0.2); BASOPHILS % (AUTO) 0.9 % (0.0-2.0); EOSINOPHILS # (AUTO) 0.2 K/uL (0.0-0.7); EOSINOPHILS % (AUTO) 2.1 % (0.0-6.0); HEMATOCRIT 30 % (39-51); HEMOGLOBIN 9.5 g/dL (13.5-17.5); LYMPHOCYTES # (AUTO) 1.2 K/uL (0.8-4.8); LYMPHOCYTES % (AUTO) 16.1 % (20.0-44.0); MEAN CORPUSCULAR HEMOGLOBIN 27 PG (26.0-33.0); MEAN CORPUSCULAR HGB CONC 31 g/dl (31.0-36.0); MEAN CORPUSCULAR VOLUME 86 fL (80-96); MONOCYTES # (AUTO) 0.6 K/uL (0.1-1.30); MONOCYTES % (AUTO) 8.9 % (2.0-12.0); NEUTROPHILS # (AUTO) 5.2 K/uL (1.8-8.9); PLATELET COUNT (AUTO) 408 K/uL (150-450); RED BLOOD CELL COUNT(AUTO) 3.52 MIL/uL (4.5-6.0); RED CELL DISTRIBUTION WIDTH 20.6 % (11.5-15.0); WHITE BLOOD COUNT (AUTO) 7.3 K/uL (4.3-11.0)
[2023-07-25 12:00] VITALS: BP 109/68; TEMP 98.8; O2SAT 98
[2023-07-25] MEDS: NEPRO 1,000 ML BOTTLE GT PRN (12:58)
[2023-07-25] MEDS: EPOETIN ALFA (10,000 UNIT) 10,000 UNIT/ML VIAL SQ SCH (15:31)
[2023-07-25 16:00] VITALS: BP 94/55; TEMP 98.8; O2SAT 98
[2023-07-25] MEDS ORDERED: ALTEPLASE CATHFLO 2 MG/VIAL XX ONE (17:00)
[2023-07-25 20:00] VITALS: BP 101/70; TEMP 98; O2SAT 98
[2023-07-26] VITALS: BP 90/60; TEMP 98.5; O2SAT 100
[2023-07-26 04:00] VITALS: BP 110/72; TEMP 98.6; O2SAT 100
[2023-07-26] MEDS: hydrALAZINE HCL 50 MG TABLET GT SCH ×2 (05:59→12:31)
[2023-07-26] MEDS: ISOSORBIDE DINITRATE (20MG) 20 MG TABLET GT SCH ×2 (05:59→12:32)
[2023-07-26] MEDS: GABAPENTIN 100 MG CAPSULE GT SCH ×2 (06:00→12:32)
[2023-07-26 08:00] VITALS: BP 112/74; TEMP 98.6; O2SAT 100
[2023-07-26] MEDS: BLOOD SUGAR DIAGNOSTIC 1 EACH STRIP IN SCH ×3 (08:00→18:28)
[2023-07-26] MEDS: ARGININE/GLUTAMINE/CALCIUM BMB 1 EACH POWD.PACK GT SCH ×2 (08:09→17:18)
[2023-07-26] MEDS: PROSOURCE / PROSTAT (PYXIS) 30 ML UDC GT SCH ×2 (08:09→17:18)
[2023-07-26] MEDS: THERAHONEY GEL 1.5 OZ TUBE TP SCH ×2 (08:12)
[2023-07-26] MEDS: PANTOPRAZOLE 40 MG/PACK PACK GT SCH (08:20)
[2023-07-26] MEDS: BACLOFEN (10 MG) 10 MG TABLET GT SCH (08:21)
[2023-07-26 08:23] LABS: CALCIUM, SERUM 9.6 mg/dL (8.5-10.1); CREATININE 3.7 mg/dL (0.6-1.3); POTASSIUM 3.5 mmol/L (3.5-5.1)
[2023-07-26] MEDS: MEROPENEM 500 MG in IV NS 0.9% 50 ML IV SCH (09:03)
[2023-07-26 12:00] VITALS: BP 117/72; TEMP 98.3; O2SAT 100
[2023-07-26 16:00] VITALS: BP 118/77; TEMP 98.3; O2SAT 100
== END 2023-07-26 21:12 | DRG 950 ==
LOC: ER 20:12 → TELE1 23:08 → MEDSG1 07-24 11:14 → TELE1 07-24 15:49
PROVIDERS: ADMIT Nurse Practitioner Acute Care; ATTEND Nurse Practitioner Acute Care
PROC: 5A1955Z Respiratory Ventilation, Greater than 96 Consecutive Hours (ICD-10-PCS; principal; 2023-07-03)
PROC: 30233N1 Transfusion of Nonautologous Red Blood Cells into Peripheral Vein, Percutaneous Approach (ICD-10-PCS; 2023-07-04)
PROC: 0KB00ZZ Excision of Head Muscle, Open Approach (ICD-10-PCS; 2023-07-07)
PROC: 0JBN0ZZ Excision of Right Lower Leg Subcutaneous Tissue and Fascia, Open Approach (ICD-10-PCS; 2023-07-07)
PROC: 0KBP0ZZ Excision of Left Hip Muscle, Open Approach (ICD-10-PCS; 2023-07-07)
PROC: 02HV33Z Insertion of Infusion Device into Superior Vena Cava, Percutaneous Approach (ICD-10-PCS; 2023-07-11)
PROC: B518YZA Fluoroscopy of Superior Vena Cava using Other Contrast, Guidance (ICD-10-PCS; 2023-07-11)
PROC: 5A1D70Z Performance of Urinary Filtration, Intermittent, Less than 6 Hours Per Day (ICD-10-PCS; 2023-07-11)
PROC: 0NB00ZZ Excision of Skull, Open Approach (ICD-10-PCS; 2023-07-14)
PROC: 0KBP0ZZ Excision of Left Hip Muscle, Open Approach (ICD-10-PCS; 2023-07-14)
PROC: 0JH63XZ Insertion of Tunneled Vascular Access Device into Chest Subcutaneous Tissue and Fascia, Percutaneous Approach (ICD-10-PCS; 2023-07-15)
PROC: 02HV33Z Insertion of Infusion Device into Superior Vena Cava, Percutaneous Approach (ICD-10-PCS; 2023-07-15)
PROC: B518YZA Fluoroscopy of Superior Vena Cava using Other Contrast, Guidance (ICD-10-PCS; 2023-07-15)
PROC: 0KB00ZZ Excision of Head Muscle, Open Approach (ICD-10-PCS; 2023-07-24)
DX: N17.0 Acute kidney failure with tubular necrosis (principal); G93.41 Metabolic encephalopathy; I50.33 Acute on chronic diastolic (congestive) heart failure; J95.851 Ventilator associated pneumonia; L89.313 Pressure ulcer of right buttock, stage 3; L89.324 Pressure ulcer of left buttock, stage 4; J15.69 Pneumonia due to other Gram-negative bacteria; I21.A1 Myocardial infarction type 2; J15.9 Unspecified bacterial pneumonia; L89.894 Pressure ulcer of other site, stage 4; E87.1 Hypo-osmolality and hyponatremia; R53.2 Functional quadriplegia; L89.814 Pressure ulcer of head, stage 4; E87.0 Hyperosmolality and hypernatremia; E11.22 Type 2 diabetes mellitus with diabetic chronic kidney disease; J96.10 Chronic respiratory failure, unspecified whether with hypoxia or hypercapnia; G93.1 Anoxic brain damage, not elsewhere classified; N39.0 Urinary tract infection, site not specified; N32.0 Bladder-neck obstruction; I13.2 Hypertensive heart and chronic kidney disease with heart failure and with stage 5 chronic kidney disease, or end stage renal disease; N18.6 End stage renal disease; D63.1 Anemia in chronic kidney disease; E83.41 Hypermagnesemia; K21.9 Gastro-esophageal reflux disease without esophagitis; D68.69 Other thrombophilia; M24.561 Contracture, right knee; M24.562 Contracture, left knee; M89.8X9 Other specified disorders of bone, unspecified site; Z79.4 Long term (current) use of insulin; Z87.440 Personal history of urinary (tract) infections; Z87.891 Personal history of nicotine dependence; Z88.0 Allergy status to penicillin; Z93.1 Gastrostomy status; Z99.11 Dependence on respirator [ventilator] status; Z93.0 Tracheostomy status; Z74.01 Bed confinement status; R13.10 Dysphagia, unspecified; J39.8 Other specified diseases of upper respiratory tract; J93.82 Other air leak; Y84.8 Other medical procedures as the cause of abnormal reaction of the patient, or of later complication, without mention of misadventure at the time of the procedure; L89.620 Pressure ulcer of left heel, unstageable; L89.610 Pressure ulcer of right heel, unstageable; L89.520 Pressure ulcer of left ankle, unstageable; L89.890 Pressure ulcer of other site, unstageable; M24.542 Contracture, left hand; M24.541 Contracture, right hand; R19.5 Other fecal abnormalities; E11.69 Type 2 diabetes mellitus with other specified complication; M86.8X8 Other osteomyelitis, other site; B96.5 Pseudomonas (aeruginosa) (mallei) (pseudomallei) as the cause of diseases classified elsewhere; I69.898 Other sequelae of other cerebrovascular disease
CPT/HCPCS: 31720; 36415; 71045-TC; 76770-TC; 80048-TC; 80053-TC; 80061-TC; 80170-TC; 80202-TC; 81001; 82272-TC; 82550-TC; 82570-TC; 82728-TC; 82962-TC; 83540-TC; 83735-TC; 83935-TC; 83970; 84100-TC; 84155; 84165; 84300-TC; 84443-TC; 84484-TC; 85025-TC; 85027-TC; 85610-TC; 85652-TC; 86225; 86235; 86706; 86803; 86850-TC; 87040-TC; 87086-TC; 87340; 90935-TC; 93307-TC; 94002-TC; 94003-TC; 94760-TC; 94762-TC; 94799-TC; 99082-TC; A4216; A4223; A4623; A6253; A6403; A6407; A7526; C1750; C9113; G0378; J0690; J0696; J0885; J1580; J1644; J1815; J1940; J2185; J3370; J3490; J7030; J7040; J7050; J7060; P9016; P9047; Q9967

== ENCOUNTER 2024-02-02 18:05 | Inpatient (IN) | payer OTHER ==
[~2024-02-02] VITALS: Ht 172.7 cm; Wt 72.8 kg
[~2024-02-02 18:05] MED LIST changes: +ACET160L44 GT; +ALBU2.5V38 IH; -ALBU8.5H8 IH; -AMIN30LI2 GT; -AMLO-213 GT; +ARGI1POW13 GT; -CLON0.1T GT; -CRAN3875 GT; +DIABETISOURCE AC GT; -EPOE1000 SQ; +EPOE1VIA12 SQ; +FERR220S2 GT; -FERR300L GT; +ISOS20TA8 GT; -LANS30CA56 GT; +LORA-259 GT; -MAGN400O6 GT; -NA P133E RC; -NUT.237L31 GT; -NUT.237L45 GT; -NUTR1PAC14 GT; -OMEG-167 PO; +OMEG1600 GT; +OMEP20CA15 GT; +POVI3780 TP; +[UNRECOGNIZED DRUG - CODE] IV
[2024-02-02 18:57] LABS: ALANINE AMINOTRANSFERASE < 6 U/L (12-78); ALBUMIN 1.5 g/dL (3.4-5.0); ALKALINE PHOSPHATASE 179 U/L (46-116); ASPARTATE AMINOTRANSFERASE 22 U/L (15-37); BILIRUBIN,DIRECT 0.3 mg/dL (0.0-0.2); BILIRUBIN,TOTAL 0.6 mg/dL (0.2-1.0); CARBON DIOXIDE 27 mmol/L (21-32); CHLORIDE 98 mmol/L (98-107); CREATININE 2.9 mg/dL (0.6-1.3); GLUCOSE 154 mg/dL (74-106); POTASSIUM 4.4 mmol/L (3.5-5.1); SODIUM SERUM 137 mmol/L (136-145); TOTAL PROTEIN, SERUM 8.3 g/dL (6.4-8.2); UREA NITROGEN, BLOOD 70 mg/dL (7-18)
[2024-02-02 19:03] LABS: LACTIC ACID 1.5 mmol/L (0.4-2.0)
[2024-02-02 19:04] LABS: BASOPHILS # (AUTO) 0.1 K/uL (0.0-0.2); BASOPHILS % (AUTO) 0.2 % (0.0-2.0); HEMATOCRIT 26 % (39-51); HEMOGLOBIN 7.5 g/dL (13.5-17.5); LYMPHOCYTES # (AUTO) 0.7 K/uL (0.8-4.8); LYMPHOCYTES % (AUTO) 1.7 % (20.0-44.0); MEAN CORPUSCULAR HEMOGLOBIN 32 PG (26.0-33.0); MEAN CORPUSCULAR HGB CONC 29 g/dl (31.0-36.0); MEAN CORPUSCULAR VOLUME 108 fL (80-96); MONOCYTES # (AUTO) 1.7 K/uL (0.1-1.30); MONOCYTES % (AUTO) 4.3 % (2.0-12.0); NEUTROPHILS # (AUTO) 36.3 K/uL (1.8-8.9); NEUTROPHILS % (AUTO) 93.8 % (43.0-81.0); PLATELET COUNT (AUTO) 573 K/uL (150-450); RED BLOOD CELL COUNT(AUTO) 2.38 MIL/uL (4.5-6.0); RED CELL DISTRIBUTION WIDTH 21.1 % (11.5-15.0)
[2024-02-02 19:07] LABS: INR 1.09 (0.91-1.10); PROTHROMBIN TIME 11.5 SECS (9.2-11.1)
[2024-02-02 19:28] LABS: PARTIAL THROMBOPLASTIN TIME 41.3 SEC (24.3-34.3)
[2024-02-02 19:32] LABS: WHITE BLOOD COUNT (AUTO) 38.7 K/uL (4.3-11.0)
[2024-02-02] MEDS ORDERED: LEVOFLOXACIN 750 MG /D5W 150ML 150 ML IV ONE (19:43)
[2024-02-02] MEDS ORDERED: ALBUMIN 25% 100 ML IV ONE (19:44)
[2024-02-02] MEDS: ALBUMIN 25% 12.5 GM/50 ML BOTTLE IV ONE (19:53)
[2024-02-02] MEDS: LEVOFLOXACIN 750 MG /D5W 150ML 150 ML IV ONE (19:53)
[2024-02-02] MEDS ORDERED: ONDANSETRON HCL/PF 4 MG/2 ML VIAL IVP PRN (20:30)
[2024-02-02] MEDS ORDERED: MAGNESIUM HYDROXIDE 30 ML UDC PO PRN (20:30)
[2024-02-02] MEDS ORDERED: ZOLPIDEM TARTRATE 5 MG TABLET PO PRN (20:30)
[2024-02-02] MEDS ORDERED: ALBUTEROL FS 2.5 MG/3 ML VIAL.NEB NEB PRN (20:30)
[2024-02-02] MEDS ORDERED: MAG HYDROX/AL HYDROX/SIMETH 30 ML UDC PO PRN (20:30)
[2024-02-02] MEDS ORDERED: ACETAMINOPHEN 325 MG TABLET PO PRN (20:30)
[2024-02-02 21:15] VITALS: BP 107/75; TEMP 97.9; O2SAT 100
[2024-02-02 22:17] LABS: ANISOCYTOSIS 1+; BAND % (MANUAL) 3 % (0.0-5.0); LYMPHOCYTES % (MANUAL) 3 % (16-48); MONOCYTES % (MANUAL) 5 % (0-11.0); NEUTROPHILS % (MANUAL) 89 (42-76); PLATELET ESTIMATE INCREASED
[2024-02-02 22:18] LABS: ROULEAUX 1+
[2024-02-02] MEDS: ENOXAPARIN SODIUM 30 MG/0.3 ML DISP.SYRIN SQ SCH (23:02)
[2024-02-03] VITALS (8 sets, daily range): BP systolic 97–111; BP diastolic 68–80; TEMP 97.5–99; O2SAT 99–100
[2024-02-03 07:02] LABS: BASOPHILS # (AUTO) 0.1 K/uL (0.0-0.2); BASOPHILS % (AUTO) 0.2 % (0.0-2.0); EOSINOPHILS % (AUTO) 0.1 % (0.0-6.0); HEMATOCRIT 22 % (39-51); LYMPHOCYTES # (AUTO) 1.5 K/uL (0.8-4.8); MEAN CORPUSCULAR HEMOGLOBIN 32 PG (26.0-33.0); MEAN CORPUSCULAR HGB CONC 31 g/dl (31.0-36.0); MEAN CORPUSCULAR VOLUME 102 fL (80-96); MONOCYTES # (AUTO) 1.8 K/uL (0.1-1.30); MONOCYTES % (AUTO) 5.7 % (2.0-12.0); NEUTROPHILS # (AUTO) 27.5 K/uL (1.8-8.9); PLATELET COUNT (AUTO) 583 K/uL (150-450); RED BLOOD CELL COUNT(AUTO) 2.15 MIL/uL (4.5-6.0); RED CELL DISTRIBUTION WIDTH 20.6 % (11.5-15.0)
[2024-02-03 07:11] LABS: ALANINE AMINOTRANSFERASE < 6 U/L (12-78); ALBUMIN 1.7 g/dL (3.4-5.0); ALKALINE PHOSPHATASE 163 U/L (46-116); ASPARTATE AMINOTRANSFERASE 28 U/L (15-37); BILIRUBIN,DIRECT 0.2 mg/dL (0.0-0.2); BILIRUBIN,TOTAL 0.5 mg/dL (0.2-1.0); CALCIUM, SERUM 10.1 mg/dL (8.5-10.1); CARBON DIOXIDE 25 mmol/L (21-32); CHLORIDE 98 mmol/L (98-107); CREATININE 3.3 mg/dL (0.6-1.3); GLUCOSE 104 mg/dL (74-106); MAGNESIUM 2.9 mg/dL (1.8-2.4); PHOSPHORUS 6.1 mg/dL (2.5-4.9); POTASSIUM 4.7 mmol/L (3.5-5.1); SODIUM SERUM 138 mmol/L (136-145); TOTAL PROTEIN, SERUM 7.8 g/dL (6.4-8.2)
[2024-02-03 07:15] LABS: HEMOGLOBIN 6.8 g/dL (13.5-17.5); WHITE BLOOD COUNT (AUTO) 30.9 K/uL (4.3-11.0)
[2024-02-03 07:29] LABS: UREA NITROGEN, BLOOD 82 mg/dL (7-18)
[2024-02-03] MEDS: PANTOPRAZOLE 40 MG VIAL IV SCH (08:35)
[2024-02-03] MEDS ORDERED: CARV6.252 GT (09:56)
[2024-02-03] MEDS ORDERED: ACET160L44 GT (09:56)
[2024-02-03] MEDS ORDERED: CLON0.2T GT (09:56)
[2024-02-03] MEDS ORDERED: MIDO10TA GT ×2 (09:56)
[2024-02-03] MEDS ORDERED: FOLI0.8T2 GT (09:56)
[2024-02-03] MEDS ORDERED: VITS42.53 TP (09:56)
[2024-02-03] MEDS ORDERED: SEVE0.8P3 GT (09:56)
[2024-02-03] MEDS ORDERED: ONDA-97 GT (09:56)
[2024-02-03] MEDS ORDERED: NUTR100037 GT (09:56)
[2024-02-03] MEDS ORDERED: VANC50SO3 GT (09:56)
[2024-02-03 10:10] LABS: ANISOCYTOSIS 1+; BASOPHILS % (MANUAL) 0 % (0.0-2.0); EOSINOPHILS % (MANUAL) 1 % (0-4); LYMPHOCYTES % (MANUAL) 8 % (16-48); MONOCYTES % (MANUAL) 2 % (0-11.0); NEUTROPHILS % (MANUAL) 89 (42-76); PLATELET ESTIMATE ADEQUATE
[2024-02-03] MEDS: DAKINS QUARTER STRENGTH (0.125%) 480 ML BOTTLE TOP SCH (12:19)
[2024-02-03] MEDS: CADEXOMER IODINE 40 GM TUBE TP SCH (12:20)
[2024-02-03] MEDS: Z GUARD REMEDY 4 OZ OINT TP PRN (12:21)
[2024-02-03] MEDS: EPOETIN ALFA (10,000 UNIT) 10,000 UNIT/ML VIAL SQ SCH (13:36)
[2024-02-03] MEDS: THERAHONEY GEL 1.5 OZ TUBE TP SCH (15:33)
[2024-02-03] MEDS: VANCOMYCIN HCL 125 MG/2.5 ML ORAL.SUSP PO SCH (17:56)
[2024-02-04] VITALS: BP 108/74; TEMP 98.3; O2SAT 99
[2024-02-04 04:00] VITALS: BP 105/78; TEMP 98.4; O2SAT 98
[2024-02-04 07:31] LABS: BASOPHILS % (AUTO) 0.1 % (0.0-2.0); EOSINOPHILS % (AUTO) 0.1 % (0.0-6.0); HEMATOCRIT 31 % (39-51); HEMOGLOBIN 9.8 g/dL (13.5-17.5); LYMPHOCYTES # (AUTO) 1.2 K/uL (0.8-4.8); LYMPHOCYTES % (AUTO) 5.7 % (20.0-44.0); MEAN CORPUSCULAR HEMOGLOBIN 32 PG (26.0-33.0); MEAN CORPUSCULAR HGB CONC 32 g/dl (31.0-36.0); MEAN CORPUSCULAR VOLUME 101 fL (80-96); MONOCYTES # (AUTO) 1.1 K/uL (0.1-1.30); NEUTROPHILS # (AUTO) 19.1 K/uL (1.8-8.9); NEUTROPHILS % (AUTO) 89.1 % (43.0-81.0); PLATELET COUNT (AUTO) 522 K/uL (150-450); RED BLOOD CELL COUNT(AUTO) 3.07 MIL/uL (4.5-6.0); RED CELL DISTRIBUTION WIDTH 22.3 % (11.5-15.0); WHITE BLOOD COUNT (AUTO) 21.4 K/uL (4.3-11.0)
[2024-02-04 07:56] LABS: CALCIUM, SERUM 10.2 mg/dL (8.5-10.1); CREATININE 2.5 mg/dL (0.6-1.3); MAGNESIUM 2.9 mg/dL (1.8-2.4); PHOSPHORUS 5.9 mg/dL (2.5-4.9); POTASSIUM 4.8 mmol/L (3.5-5.1)
[2024-02-04 08:00] VITALS: BP 106/76; TEMP 98.2; O2SAT 98
[2024-02-04 12:00] VITALS: BP 112/80; TEMP 97.7; O2SAT 98
[2024-02-04 16:00] VITALS: BP 108/72; TEMP 98.1; O2SAT 98
[2024-02-04 20:00] VITALS: BP 106/69; TEMP 98.3; O2SAT 98
[2024-02-04] MEDS: LEVOFLOXACIN 750 MG /D5W 150ML 750 MG in PREMIX 1 EA IV SCH (20:31)
[2024-02-04] MEDS: GENTAMICIN 140 MG in IV D5W 100 ML IV ONE (21:18)
[2024-02-04] MEDS: METRONIDAZOLE 500 MG TABLET PO SCH (22:58)
[2024-02-04] MEDS: VANCOMYCIN HCL 125 MG/2.5 ML ORAL.SUSP PO SCH (23:19)
[2024-02-05] VITALS: BP 128/78; TEMP 98.6; O2SAT 100
[2024-02-05 04:00] VITALS: BP 139/89; TEMP 97.6; O2SAT 97
[2024-02-05 07:28] LABS: BASOPHILS % (AUTO) 0.1 % (0.0-2.0); EOSINOPHILS % (AUTO) 0.1 % (0.0-6.0); HEMATOCRIT 31 % (39-51); HEMOGLOBIN 9.9 g/dL (13.5-17.5); LYMPHOCYTES # (AUTO) 0.9 K/uL (0.8-4.8); LYMPHOCYTES % (AUTO) 5.1 % (20.0-44.0); MEAN CORPUSCULAR HEMOGLOBIN 32 PG (26.0-33.0); MEAN CORPUSCULAR HGB CONC 32 g/dl (31.0-36.0); MEAN CORPUSCULAR VOLUME 98 fL (80-96); MONOCYTES # (AUTO) 0.8 K/uL (0.1-1.30); MONOCYTES % (AUTO) 4.5 % (2.0-12.0); NEUTROPHILS # (AUTO) 15.4 K/uL (1.8-8.9); NEUTROPHILS % (AUTO) 90.2 % (43.0-81.0); PLATELET COUNT (AUTO) 549 K/uL (150-450); RED BLOOD CELL COUNT(AUTO) 3.14 MIL/uL (4.5-6.0); RED CELL DISTRIBUTION WIDTH 20.6 % (11.5-15.0); WHITE BLOOD COUNT (AUTO) 17.1 K/uL (4.3-11.0)
[2024-02-05 07:50] LABS: CALCIUM, SERUM 9.3 mg/dL (8.5-10.1); CREATININE 3.5 mg/dL (0.6-1.3); MAGNESIUM 2.8 mg/dL (1.8-2.4); POTASSIUM 5.1 mmol/L (3.5-5.1)
[2024-02-05 08:00] VITALS: BP 119/89; TEMP 97.7; O2SAT 98
[2024-02-05 09:06] LABS: PHOSPHORUS 8.9 mg/dL (2.5-4.9)
[2024-02-05] MEDS ORDERED: BISACODYL SUPP (10 MG) 10 MG/SUPP.RECT SUPP.RECT RC PRN (11:30)
[2024-02-05 12:00] VITALS: BP 127/81; TEMP 98.4; O2SAT 98
[2024-02-05] MEDS: hydrALAZINE HCL 50 MG TABLET GT SCH (12:14)
[2024-02-05] MEDS: GABAPENTIN 100 MG CAPSULE GT SCH (12:14)
[2024-02-05] MEDS: ISOSORBIDE DINITRATE (20MG) 20 MG TABLET GT SCH (12:14)
[2024-02-05] MEDS: SEVELAMER CARBONATE 800 MG POWD.PACK GT SCH (12:15)
[2024-02-05] MEDS: ALBUTEROL FS 2.5 MG/3 ML VIAL.NEB IH SCH (13:59)
[2024-02-05] MEDS: EPOETIN ALFA (10,000 UNIT) 10,000 UNIT/ML VIAL SQ SCH (15:07)
[2024-02-05 16:00] VITALS: BP 128/75; TEMP 97.9; O2SAT 97
[2024-02-05] MEDS ORDERED: OMEPRAZOLE 20 MG CAPSULE.DR GT SCH (17:00)
[2024-02-05] MEDS: DOCUSATE SODIUM LIQ 100 MG/10 ML UDC GT SCH (17:37)
[2024-02-05] MEDS: POLYETHYLENE GLYCOL 3350 17 GM POWD.PACK GT SCH (17:37)
[2024-02-05 20:00] VITALS: BP 104/83; TEMP 98.2; O2SAT 97
[2024-02-05] MEDS: GENTAMICIN IV PRN (21:20)
[2024-02-05] MEDS: D5W IV PRN (21:20)
[2024-02-05] MEDS: CHLORHEXIDINE GLUCONATE 15 ML UDC MM SCH (21:36)
[2024-02-05] MEDS: BACLOFEN (10 MG) 10 MG TABLET GT SCH (21:40)
[2024-02-05] MEDS: CARVEDILOL 6.25 MG TABLET GT SCH (21:41)
[2024-02-05] MEDS: ASCORBIC ACID 500 MG TABLET GT SCH (22:08)
[2024-02-05] MEDS: VITAMINS A AND D 56.7 GM TUBE TP SCH (22:12)
[2024-02-05] MEDS: NEPRO 1,000 ML BOTTLE GT PRN (22:17)
[2024-02-06] VITALS: BP 115/72; TEMP 97.8; O2SAT 98
[2024-02-06 04:00] VITALS: BP 111/73; TEMP 98.3; O2SAT 98
[2024-02-06 06:54] LABS: BASOPHILS % (AUTO) 0.1 % (0.0-2.0); EOSINOPHILS % (AUTO) 0.1 % (0.0-6.0); HEMATOCRIT 27 % (39-51); HEMOGLOBIN 8.7 g/dL (13.5-17.5); LYMPHOCYTES # (AUTO) 1.1 K/uL (0.8-4.8); LYMPHOCYTES % (AUTO) 5.8 % (20.0-44.0); MEAN CORPUSCULAR HEMOGLOBIN 32 PG (26.0-33.0); MEAN CORPUSCULAR HGB CONC 33 g/dl (31.0-36.0); MEAN CORPUSCULAR VOLUME 98 fL (80-96); MONOCYTES # (AUTO) 0.9 K/uL (0.1-1.30); MONOCYTES % (AUTO) 4.5 % (2.0-12.0); NEUTROPHILS # (AUTO) 17.5 K/uL (1.8-8.9); NEUTROPHILS % (AUTO) 89.5 % (43.0-81.0); PLATELET COUNT (AUTO) 577 K/uL (150-450); RED BLOOD CELL COUNT(AUTO) 2.72 MIL/uL (4.5-6.0); RED CELL DISTRIBUTION WIDTH 19.9 % (11.5-15.0); WHITE BLOOD COUNT (AUTO) 19.5 K/uL (4.3-11.0)
[2024-02-06 07:24] LABS: CALCIUM, SERUM 9.3 mg/dL (8.5-10.1); CREATININE 2.5 mg/dL (0.6-1.3); MAGNESIUM 2.5 mg/dL (1.8-2.4); PHOSPHORUS 5.7 mg/dL (2.5-4.9)
[2024-02-06 08:00] VITALS: BP 93/72; TEMP 98.1; O2SAT 100
[2024-02-06] MEDS: VIT B CMPLX 3/FA/VIT C/BIOTIN 1 TAB TABLET PO SCH (08:34)
[2024-02-06] MEDS: VITAMIN E 400 UNIT CAPSULE PO SCH (08:34)
[2024-02-06] MEDS: FERROUS SULFATE UDC 300 MG/5 ML UDC GT SCH (08:34)
[2024-02-06 12:00] VITALS: BP 96/76; TEMP 98; O2SAT 100
[2024-02-06 16:00] VITALS: BP 99/81; TEMP 98.2; O2SAT 96
[2024-02-06 20:00] VITALS: BP 105/68; TEMP 98.2; O2SAT 96
[2024-02-06] MEDS: HEPARIN SODIUM, PORCINE 5000 UNITS/1 ML VIAL SQ SCH (22:03)
[2024-02-07] VITALS: BP 115/82; TEMP 98.4; O2SAT 96
[2024-02-07 04:00] VITALS: BP 95/68; TEMP 98.4; O2SAT 96
[2024-02-07 07:57] LABS: CALCIUM, SERUM 9.4 mg/dL (8.5-10.1); CREATININE 3.5 mg/dL (0.6-1.3); POTASSIUM 5.9 mmol/L (3.5-5.1)
[2024-02-07 08:00] VITALS: BP 113/77; TEMP 98.6; O2SAT 99
[2024-02-07 12:00] VITALS: BP 99/62; TEMP 98.8; O2SAT 99
[2024-02-07 16:00] VITALS: BP 100/52; TEMP 98.4; O2SAT 97
[2024-02-07] MEDS: ARGININE/GLUTAMINE/CALCIUM BMB 1 EACH POWD.PACK GT SCH (17:00)
[2024-02-07] MEDS: NEPRO 1,000 ML BOTTLE GT PRN (17:01)
[2024-02-07 20:00] VITALS: BP 95/61; TEMP 98.2; O2SAT 100
[2024-02-08] VITALS: BP 101/72; TEMP 98.6; O2SAT 100
[2024-02-08 04:00] VITALS: BP 112/68; TEMP 98.4; O2SAT 100
[2024-02-08 06:52] LABS: BASOPHILS % (AUTO) 0.1 % (0.0-2.0); EOSINOPHILS # (AUTO) 0.1 K/uL (0.0-0.7); EOSINOPHILS % (AUTO) 0.4 % (0.0-6.0); HEMATOCRIT 32 % (39-51); HEMOGLOBIN 9.8 g/dL (13.5-17.5); LYMPHOCYTES # (AUTO) 1.4 K/uL (0.8-4.8); LYMPHOCYTES % (AUTO) 8.2 % (20.0-44.0); MEAN CORPUSCULAR HEMOGLOBIN 31 PG (26.0-33.0); MEAN CORPUSCULAR HGB CONC 31 g/dl (31.0-36.0); MEAN CORPUSCULAR VOLUME 101 fL (80-96); MONOCYTES # (AUTO) 1.5 K/uL (0.1-1.30); MONOCYTES % (AUTO) 9.3 % (2.0-12.0); NEUTROPHILS # (AUTO) 13.5 K/uL (1.8-8.9); PLATELET COUNT (AUTO) 426 K/uL (150-450); RED BLOOD CELL COUNT(AUTO) 3.12 MIL/uL (4.5-6.0); RED CELL DISTRIBUTION WIDTH 19.8 % (11.5-15.0); WHITE BLOOD COUNT (AUTO) 16.5 K/uL (4.3-11.0)
[2024-02-08 07:08] LABS: CALCIUM, SERUM 9.9 mg/dL (8.5-10.1); CREATININE 2.5 mg/dL (0.6-1.3); PHOSPHORUS 4.5 mg/dL (2.5-4.9); POTASSIUM 3.7 mmol/L (3.5-5.1)
[2024-02-08 08:00] VITALS: BP 91/68; TEMP 97.4; O2SAT 100
[2024-02-08 12:00] VITALS: BP 94/62; TEMP 97.7; O2SAT 100
[2024-02-08 16:00] VITALS: BP 103/62; TEMP 97.7; O2SAT 100
[2024-02-08 20:00] VITALS: BP 103/47; TEMP 97.8; O2SAT 100
[2024-02-09] VITALS: BP 90/47; TEMP 97.5; O2SAT 99
[2024-02-09 04:00] VITALS: BP 95/50; TEMP 97.1; O2SAT 98
[2024-02-09] MEDS ORDERED: MAGNESIUM HYDROXIDE 30 ML UDC GT PRN (06:28)
[2024-02-09] MEDS ORDERED: MAG HYDROX/AL HYDROX/SIMETH 30 ML UDC GT PRN (06:28)
[2024-02-09] MEDS: IPRATROPIUM NEB FS 0.5 MG/2.5 ML AMPUL.NEB NEB PRN (07:55)
[2024-02-09 08:00] VITALS: BP 96/67; TEMP 97.3; O2SAT 100
[2024-02-09] MEDS: VIT B CMPLX 3/FA/VIT C/BIOTIN 1 TAB TABLET GT SCH (09:01)
[2024-02-09] MEDS: VITAMIN E 400 UNIT CAPSULE GT SCH (09:01)
[2024-02-09] MEDS: PANTOPRAZOLE 40 MG/PACK PACK GT SCH (09:02)
[2024-02-09] MEDS ORDERED: LIDOCAINE MPF 1%-EPI 1:200,000 30 ML VIAL IJ ONE (11:00)
[2024-02-09] MEDS ORDERED: LIDOCAINE 1%-EPI 1:200,000 SDV 10 ML VIAL IJ ONE ×2 (11:00)
[2024-02-09 12:00] VITALS: BP 71/58; TEMP 97.7; O2SAT 100
[2024-02-09] MEDS: METRONIDAZOLE 500 MG TABLET GT SCH (12:19)
[2024-02-09] MEDS: ALBUMIN 25% 25 GM in PREMIX 1 EA IV PRN (12:20)
[2024-02-09 12:38] LABS: CALCIUM, SERUM 8.9 mg/dL (8.5-10.1)
[2024-02-09 12:45] LABS: POTASSIUM 2.6 mmol/L (3.5-5.1)
[2024-02-09 12:47] LABS: BASOPHILS % (AUTO) 0.2 % (0.0-2.0); EOSINOPHILS % (AUTO) 0.3 % (0.0-6.0); HEMATOCRIT 25 % (39-51); HEMOGLOBIN 8.1 g/dL (13.5-17.5); LYMPHOCYTES % (AUTO) 5.8 % (20.0-44.0); MEAN CORPUSCULAR HEMOGLOBIN 32 PG (26.0-33.0); MEAN CORPUSCULAR HGB CONC 32 g/dl (31.0-36.0); MEAN CORPUSCULAR VOLUME 98 fL (80-96); MONOCYTES # (AUTO) 0.4 K/uL (0.1-1.30); MONOCYTES % (AUTO) 2.3 % (2.0-12.0); NEUTROPHILS # (AUTO) 15.7 K/uL (1.8-8.9); NEUTROPHILS % (AUTO) 91.4 % (43.0-81.0); PLATELET COUNT (AUTO) 401 K/uL (150-450); RED BLOOD CELL COUNT(AUTO) 2.56 MIL/uL (4.5-6.0); RED CELL DISTRIBUTION WIDTH 18.6 % (11.5-15.0); WHITE BLOOD COUNT (AUTO) 17.2 K/uL (4.3-11.0)
[2024-02-09] MEDS: GENTAMICIN 80 MG in IV D5W 100 ML IV PRN (15:04)
[2024-02-09 16:00] VITALS: BP 91/58; TEMP 97.9; O2SAT 98
[2024-02-09 20:00] VITALS: BP 93/63; TEMP 97.9; O2SAT 100
[2024-02-09 22:35] LABS: CALCIUM, SERUM 9.6 mg/dL (8.5-10.1); CREATININE 2.5 mg/dL (0.6-1.3); POTASSIUM 3.5 mmol/L (3.5-5.1)
[2024-02-10] VITALS (8 sets, daily range): BP systolic 80–94; BP diastolic 49–67; TEMP 97.4–99.1; O2SAT 99–100
[2024-02-10 07:40] LABS: BASOPHILS # (AUTO) 0.1 K/uL (0.0-0.2); BASOPHILS % (AUTO) 0.6 % (0.0-2.0); EOSINOPHILS # (AUTO) 0.1 K/uL (0.0-0.7); EOSINOPHILS % (AUTO) 0.4 % (0.0-6.0); HEMATOCRIT 27 % (39-51); HEMOGLOBIN 8.5 g/dL (13.5-17.5); LYMPHOCYTES % (AUTO) 5.4 % (20.0-44.0); MEAN CORPUSCULAR HEMOGLOBIN 32 PG (26.0-33.0); MEAN CORPUSCULAR HGB CONC 31 g/dl (31.0-36.0); MEAN CORPUSCULAR VOLUME 101 fL (80-96); MONOCYTES # (AUTO) 0.8 K/uL (0.1-1.30); MONOCYTES % (AUTO) 4.3 % (2.0-12.0); NEUTROPHILS # (AUTO) 17.1 K/uL (1.8-8.9); NEUTROPHILS % (AUTO) 89.3 % (43.0-81.0); PLATELET COUNT (AUTO) 394 K/uL (150-450); RED BLOOD CELL COUNT(AUTO) 2.69 MIL/uL (4.5-6.0); RED CELL DISTRIBUTION WIDTH 19.8 % (11.5-15.0); WHITE BLOOD COUNT (AUTO) 19.1 K/uL (4.3-11.0)
[2024-02-10 07:56] LABS: CALCIUM, SERUM 10.1 mg/dL (8.5-10.1); CREATININE 2.8 mg/dL (0.6-1.3); MAGNESIUM 3.2 mg/dL (1.8-2.4); PHOSPHORUS 2.6 mg/dL (2.5-4.9); POTASSIUM 3.6 mmol/L (3.5-5.1)
[2024-02-10] MEDS: LIDOCAINE MPF 1%-EPI 1:200,000 30 ML VIAL IJ ONE (10:18)
[2024-02-10] MEDS: CELLULOSE,OXIDIZED 1 EACH EACH MC ONE ×2 (10:19→10:55)
[2024-02-10] MEDS: LIDOCAINE 1%-EPI 1:100,000 50 ML VIAL IJ ONE (10:54)
[2024-02-10] MEDS ORDERED: MEROPENEM 500 MG VIAL IV ONE (22:44)
[2024-02-10] MEDS: MEROPENEM 500 MG in IV NS 0.9% 50 ML IV ONE (22:59)
[2024-02-11] VITALS: BP 100/70; TEMP 100.3; O2SAT 99
[2024-02-11] MEDS: ACETAMINOPHEN 650 MG/20.3 ML UDC GT PRN (01:41)
[2024-02-11 04:00] VITALS: BP 90/59; TEMP 98; O2SAT 99
[2024-02-11 08:00] VITALS: BP 84/63; TEMP 99.5; O2SAT 100
[2024-02-11] MEDS: MEROPENEM 500 MG in IV NS 0.9% 50 ML IV SCH (09:12)
[2024-02-11 12:00] VITALS: BP 98/70; TEMP 97.9; O2SAT 98
[2024-02-11 16:00] VITALS: BP 108/85; TEMP 98.1; O2SAT 99
[2024-02-11 20:00] VITALS: BP 99/70; TEMP 97.4; O2SAT 90
[2024-02-12] VITALS (7 sets, daily range): BP systolic 85–101; BP diastolic 56–72; TEMP 97.5–98.8; O2SAT 96–100
[2024-02-12 12:39] LABS: CALCIUM, SERUM 10.2 mg/dL (8.5-10.1); CREATININE 3.4 mg/dL (0.6-1.3); POTASSIUM 4.2 mmol/L (3.5-5.1)
[2024-02-12] MEDS: LORAZEPAM 1 MG TABLET GT PRN (13:03)
[2024-02-12] MEDS ORDERED: LIDOCAINE 1% INJ 50 ML MDV IJ ONE (18:00)
[2024-02-13] VITALS (7 sets, daily range): BP systolic 83–110; BP diastolic 50–79; TEMP 97.4–99; O2SAT 98–100
[2024-02-13 07:47] LABS: CREATININE 4.1 mg/dL (0.6-1.3); POTASSIUM 3.9 mmol/L (3.5-5.1)
[2024-02-13 09:02] LABS: BASOPHILS # (AUTO) 0.1 K/uL (0.0-0.2); BASOPHILS % (AUTO) 0.2 % (0.0-2.0); HEMATOCRIT 29 % (39-51); HEMOGLOBIN 8.8 g/dL (13.5-17.5); LYMPHOCYTES # (AUTO) 0.8 K/uL (0.8-4.8); LYMPHOCYTES % (AUTO) 3.7 % (20.0-44.0); MEAN CORPUSCULAR HEMOGLOBIN 31 PG (26.0-33.0); MEAN CORPUSCULAR HGB CONC 31 g/dl (31.0-36.0); MEAN CORPUSCULAR VOLUME 101 fL (80-96); MONOCYTES # (AUTO) 0.8 K/uL (0.1-1.30); MONOCYTES % (AUTO) 3.6 % (2.0-12.0); NEUTROPHILS # (AUTO) 20.7 K/uL (1.8-8.9); NEUTROPHILS % (AUTO) 92.5 % (43.0-81.0); PLATELET COUNT (AUTO) 482 K/uL (150-450); RED BLOOD CELL COUNT(AUTO) 2.86 MIL/uL (4.5-6.0); RED CELL DISTRIBUTION WIDTH 19.6 % (11.5-15.0); WHITE BLOOD COUNT (AUTO) 22.4 K/uL (4.3-11.0)
[2024-02-13] MEDS: VANCOMYCIN 1 GM /D5W 250 ML PB IV ONE (22:43)
[2024-02-13] MEDS: VANCOMYCIN 1 GM in IV NS 0.9% 250 ML IV ONE (22:49)
[2024-02-14] VITALS (9 sets, daily range): BP systolic 68–143; BP diastolic 43–103; TEMP 97.3–99; O2SAT 98–100
[2024-02-14 07:24] LABS: CALCIUM, SERUM 10.7 mg/dL (8.5-10.1); CREATININE 4.5 mg/dL (0.6-1.3); POTASSIUM 4.4 mmol/L (3.5-5.1)
[2024-02-15] VITALS (7 sets, daily range): BP systolic 80–94; BP diastolic 55–64; TEMP 97.5–99.5; O2SAT 96–100
[2024-02-15 07:28] LABS: CALCIUM, SERUM 10.9 mg/dL (8.5-10.1); CREATININE 4.8 mg/dL (0.6-1.3); POTASSIUM 4.9 mmol/L (3.5-5.1)
[2024-02-15] MEDS: MIDODRINE HCL (5MG) 5 MG TABLET GT SCH (10:49)
[2024-02-16] VITALS (8 sets, daily range): BP systolic 87–111; BP diastolic 57–68; TEMP 97.7–99.3; O2SAT 98–100
[2024-02-16] MEDS ORDERED: SILVER NITRATE APPLICATOR 1 EA BOX TP PRN (12:00)
[2024-02-17] VITALS (8 sets, daily range): BP systolic 84–117; BP diastolic 50–70; TEMP 97.1–98.1; O2SAT 98–100
[2024-02-17 08:40] LABS: BASOPHILS % (AUTO) 0.3 % (0.0-2.0); EOSINOPHILS # (AUTO) 0.1 K/uL (0.0-0.7); EOSINOPHILS % (AUTO) 0.7 % (0.0-6.0); HEMATOCRIT 27 % (39-51); HEMOGLOBIN 8.9 g/dL (13.5-17.5); LYMPHOCYTES # (AUTO) 1.3 K/uL (0.8-4.8); LYMPHOCYTES % (AUTO) 9.5 % (20.0-44.0); MEAN CORPUSCULAR HEMOGLOBIN 32 PG (26.0-33.0); MEAN CORPUSCULAR HGB CONC 33 g/dl (31.0-36.0); MEAN CORPUSCULAR VOLUME 98 fL (80-96); MONOCYTES # (AUTO) 0.6 K/uL (0.1-1.30); MONOCYTES % (AUTO) 4.1 % (2.0-12.0); NEUTROPHILS # (AUTO) 12.1 K/uL (1.8-8.9); NEUTROPHILS % (AUTO) 85.4 % (43.0-81.0); PLATELET COUNT (AUTO) 436 K/uL (150-450); RED BLOOD CELL COUNT(AUTO) 2.77 MIL/uL (4.5-6.0); RED CELL DISTRIBUTION WIDTH 18.5 % (11.5-15.0); WHITE BLOOD COUNT (AUTO) 14.1 K/uL (4.3-11.0)
[2024-02-17 09:06] LABS: ALBUMIN 2.2 g/dL (3.4-5.0); BILIRUBIN,TOTAL 0.5 mg/dL (0.2-1.0); CALCIUM, SERUM 10.9 mg/dL (8.5-10.1); CREATININE 3.9 mg/dL (0.6-1.3); MAGNESIUM 3.5 mg/dL (1.8-2.4); PHOSPHORUS 3.1 mg/dL (2.5-4.9); POTASSIUM 4.4 mmol/L (3.5-5.1); TOTAL PROTEIN, SERUM 8.2 g/dL (6.4-8.2)
[2024-02-17] MEDS: LIDOCAINE 1%-EPI 1:100,000 20 ML VIAL IJ ONE (11:01)
[2024-02-17] MEDS: VANCOMYCIN POST DIALYSIS 500MG IV PRN (23:09)
[2024-02-18] VITALS (7 sets, daily range): BP systolic 83–108; BP diastolic 37–72; TEMP 97.3–99; O2SAT 95–100
[2024-02-19] VITALS (7 sets, daily range): BP systolic 91–107; BP diastolic 58–66; TEMP 97.9–98.6; O2SAT 97–100
[2024-02-20] VITALS: BP 89/48; TEMP 98.4
[2024-02-20 04:00] VITALS: BP 86/51; TEMP 98.8; O2SAT 99
[2024-02-20] MEDS: MIDODRINE HCL (5MG) 5 MG TABLET GT SCH ×2 (05:30→09:57)
[2024-02-20 08:00] VITALS: BP_SYST 93; BP_SYST 96; BP_DIAS 56; BP_DIAS 61; TEMP 99; TEMP 99.3; O2SAT 100; O2SAT 93
[2024-02-20 10:19] LABS: BASOPHILS # (AUTO) 0.1 K/uL (0.0-0.2); BASOPHILS % (AUTO) 0.5 % (0.0-2.0); EOSINOPHILS # (AUTO) 0.1 K/uL (0.0-0.7); EOSINOPHILS % (AUTO) 0.7 % (0.0-6.0); HEMATOCRIT 22 % (39-51); HEMOGLOBIN 7.1 g/dL (13.5-17.5); LYMPHOCYTES # (AUTO) 1.1 K/uL (0.8-4.8); LYMPHOCYTES % (AUTO) 6.7 % (20.0-44.0); MEAN CORPUSCULAR HEMOGLOBIN 32 PG (26.0-33.0); MEAN CORPUSCULAR HGB CONC 32 g/dl (31.0-36.0); MEAN CORPUSCULAR VOLUME 98 fL (80-96); MONOCYTES # (AUTO) 0.5 K/uL (0.1-1.30); NEUTROPHILS # (AUTO) 15.3 K/uL (1.8-8.9); NEUTROPHILS % (AUTO) 89.1 % (43.0-81.0); PLATELET COUNT (AUTO) 416 K/uL (150-450); RED BLOOD CELL COUNT(AUTO) 2.25 MIL/uL (4.5-6.0); RED CELL DISTRIBUTION WIDTH 19.4 % (11.5-15.0); WHITE BLOOD COUNT (AUTO) 17.1 K/uL (4.3-11.0)
[2024-02-20 11:17] LABS: ALBUMIN 1.9 g/dL (3.4-5.0); BILIRUBIN,TOTAL 0.4 mg/dL (0.2-1.0); CALCIUM, SERUM 10.2 mg/dL (8.5-10.1); CREATININE 2.7 mg/dL (0.6-1.3); MAGNESIUM 2.9 mg/dL (1.8-2.4); POTASSIUM 3.6 mmol/L (3.5-5.1); TOTAL PROTEIN, SERUM 7.5 g/dL (6.4-8.2)
[2024-02-20 12:00] VITALS: BP 93/56; TEMP 99; O2SAT 93
[2024-02-20 16:00] VITALS: BP 110/68; TEMP 98.8; O2SAT 92
[2024-02-20 20:00] VITALS: BP 112/76; TEMP 98.4; O2SAT 97
[2024-02-21] VITALS: BP 123/84; TEMP 98.6; O2SAT 96
[2024-02-21 04:00] VITALS: BP 118/84; TEMP 98.2; O2SAT 98
[2024-02-21 07:40] LABS: CALCIUM, SERUM 9.9 mg/dL (8.5-10.1); CREATININE 2.3 mg/dL (0.6-1.3); POTASSIUM 3.8 mmol/L (3.5-5.1)
[2024-02-21 08:00] VITALS: BP 105/66; TEMP 98.2; O2SAT 99
[2024-02-21 12:00] VITALS: BP 101/63; TEMP 98.5; O2SAT 99
[2024-02-21 16:00] VITALS: BP 105/60; TEMP 98.8; O2SAT 99
[2024-02-21 20:00] VITALS: BP 107/73; TEMP 99; O2SAT 99
[2024-02-22] VITALS (7 sets, daily range): BP systolic 85–121; BP diastolic 59–71; TEMP 98–99; O2SAT 96–100
[2024-02-22 08:51] LABS: CREATININE 3.2 mg/dL (0.6-1.3); POTASSIUM 3.9 mmol/L (3.5-5.1)
[2024-02-22] MEDS: ALTEPLASE CATHFLO 2 MG/VIAL XX ONE (18:10)
[2024-02-23] VITALS: BP 96/59; TEMP 98.4; O2SAT 100
[2024-02-23 04:00] VITALS: BP 111/67; TEMP 98.3; O2SAT 100
[2024-02-23 07:12] LABS: BASOPHILS # (AUTO) 0.1 K/uL (0.0-0.2); BASOPHILS % (AUTO) 0.4 % (0.0-2.0); EOSINOPHILS # (AUTO) 0.2 K/uL (0.0-0.7); EOSINOPHILS % (AUTO) 1.2 % (0.0-6.0); HEMATOCRIT 24 % (39-51); HEMOGLOBIN 7.5 g/dL (13.5-17.5); LYMPHOCYTES % (AUTO) 6.7 % (20.0-44.0); MEAN CORPUSCULAR HEMOGLOBIN 31 PG (26.0-33.0); MEAN CORPUSCULAR HGB CONC 32 g/dl (31.0-36.0); MEAN CORPUSCULAR VOLUME 97 fL (80-96); MONOCYTES % (AUTO) 6.9 % (2.0-12.0); NEUTROPHILS # (AUTO) 12.4 K/uL (1.8-8.9); NEUTROPHILS % (AUTO) 84.8 % (43.0-81.0); PLATELET COUNT (AUTO) 416 K/uL (150-450); RED BLOOD CELL COUNT(AUTO) 2.43 MIL/uL (4.5-6.0); WHITE BLOOD COUNT (AUTO) 14.7 K/uL (4.3-11.0)
[2024-02-23 07:20] LABS: CALCIUM, SERUM 9.6 mg/dL (8.5-10.1); CREATININE 3.3 mg/dL (0.6-1.3); POTASSIUM 3.7 mmol/L (3.5-5.1)
[2024-02-23 08:00] VITALS: BP 112/66; TEMP 98.1; O2SAT 100
[2024-02-23] MEDS: MIDODRINE HCL (5MG) 5 MG TABLET GT SCH (08:26)
[2024-02-23 12:00] VITALS: BP 109/66; TEMP 98.5; O2SAT 100
[2024-02-23 16:00] VITALS: BP 113/69; TEMP 98.2; O2SAT 100
[2024-02-23 20:00] VITALS: BP 130/67; TEMP 97.3; O2SAT 100
[2024-02-24] VITALS (7 sets, daily range): BP systolic 120–135; BP diastolic 66–81; TEMP 97.1–98.5; O2SAT 95–100
[2024-02-24 08:24] LABS: CREATININE 3.8 mg/dL (0.6-1.3); POTASSIUM 3.8 mmol/L (3.5-5.1)
[2024-02-25] VITALS (8 sets, daily range): BP systolic 92–143; BP diastolic 54–82; TEMP 97.7–99.3; O2SAT 100
[2024-02-25 07:25] LABS: CREATININE 2.3 mg/dL (0.6-1.3); POTASSIUM 3.2 mmol/L (3.5-5.1)
[2024-02-25] MEDS ORDERED: IOHEXOL 240MG/ML 0 ML IV ONE (09:58)
[2024-02-25] MEDS ORDERED: HEPARIN SODIUM, PORCINE 1,000 UNIT/ML VIAL ONE (09:58)
[2024-02-25] MEDS ORDERED: LIDOCAINE 1% INJ 50 ML MDV IJ ONE (09:58)
[2024-02-25] MEDS: POTASSIUM CL. PREMIX PERIPHER. 50 ML IV SCH (10:10)
[2024-02-25] MEDS: LIDOCAINE 1%-EPI 1:100,000 20 ML VIAL IJ ONE (16:00)
[2024-02-26] VITALS (7 sets, daily range): BP systolic 110–129; BP diastolic 73–86; TEMP 97.5–98.8; O2SAT 99–100
[2024-02-26 07:39] LABS: CALCIUM, SERUM 9.9 mg/dL (8.5-10.1); CREATININE 3.1 mg/dL (0.6-1.3); POTASSIUM 3.9 mmol/L (3.5-5.1)
[2024-02-27] VITALS (8 sets, daily range): BP systolic 105–135; BP diastolic 55–91; TEMP 97.7–101.1; O2SAT 97–100
[2024-02-28] VITALS: BP 119/78; TEMP 99.5; O2SAT 98
[2024-02-28 04:00] VITALS: BP 105/72; TEMP 100; O2SAT 98
[2024-02-28 08:00] VITALS: BP 96/66; TEMP 98.4; O2SAT 99
[2024-02-28 12:00] VITALS: BP 102/77; TEMP 98.4; O2SAT 99
[2024-02-28 13:01] VITALS: BP 124/74
== END 2024-02-28 15:42 | DRG 711 ==
LOC: ER 18:12 → TELE1 20:37
PROVIDERS: ADMIT Nurse Practitioner Family; ATTEND Nurse Practitioner Acute Care
PROC: 5A1955Z Respiratory Ventilation, Greater than 96 Consecutive Hours (ICD-10-PCS; principal; 2024-02-02)
PROC: 5A1D70Z Performance of Urinary Filtration, Intermittent, Less than 6 Hours Per Day (ICD-10-PCS; 2024-02-03)
PROC: 5A1D70Z Performance of Urinary Filtration, Intermittent, Less than 6 Hours Per Day (ICD-10-PCS; 2024-02-03)
PROC: 30233N1 Transfusion of Nonautologous Red Blood Cells into Peripheral Vein, Percutaneous Approach (ICD-10-PCS; 2024-02-03)
PROC: 0KBN0ZZ Excision of Right Hip Muscle, Open Approach (ICD-10-PCS; 2024-02-10)
PROC: 0KBV0ZZ Excision of Right Foot Muscle, Open Approach (ICD-10-PCS; 2024-02-10)
PROC: 0KBP0ZZ Excision of Left Hip Muscle, Open Approach (ICD-10-PCS; 2024-02-10)
PROC: 0KBS0ZZ Excision of Right Lower Leg Muscle, Open Approach (ICD-10-PCS; 2024-02-10)
PROC: 0QBF0ZZ Excision of Left Patella, Open Approach (ICD-10-PCS; 2024-02-12)
PROC: 06HY33Z Insertion of Infusion Device into Lower Vein, Percutaneous Approach (ICD-10-PCS; 2024-02-15)
PROC: 0QB20ZZ Excision of Right Pelvic Bone, Open Approach (ICD-10-PCS; 2024-02-17)
PROC: 0QB30ZZ Excision of Left Pelvic Bone, Open Approach (ICD-10-PCS; 2024-02-17)
PROC: 0QBF0ZZ Excision of Left Patella, Open Approach (ICD-10-PCS; 2024-02-17)
PROC: 0KBN0ZZ Excision of Right Hip Muscle, Open Approach (ICD-10-PCS; 2024-02-17)
PROC: 0JB00ZZ Excision of Scalp Subcutaneous Tissue and Fascia, Open Approach (ICD-10-PCS; 2024-02-17)
PROC: 0JH63XZ Insertion of Tunneled Vascular Access Device into Chest Subcutaneous Tissue and Fascia, Percutaneous Approach (ICD-10-PCS; 2024-02-25)
PROC: 05HN33Z Insertion of Infusion Device into Left Internal Jugular Vein, Percutaneous Approach (ICD-10-PCS; 2024-02-25)
PROC: B514YZA Fluoroscopy of Left Jugular Veins using Other Contrast, Guidance (ICD-10-PCS; 2024-02-25)
PROC: 0QB30ZZ Excision of Left Pelvic Bone, Open Approach (ICD-10-PCS; 2024-02-26)
PROC: 0QBF0ZZ Excision of Left Patella, Open Approach (ICD-10-PCS; 2024-02-26)
PROC: 0KBP0ZZ Excision of Left Hip Muscle, Open Approach (ICD-10-PCS; 2024-02-26)
PROC: 0KBN0ZZ Excision of Right Hip Muscle, Open Approach (ICD-10-PCS; 2024-02-26)
PROC: 0KBS0ZZ Excision of Right Lower Leg Muscle, Open Approach (ICD-10-PCS; 2024-02-26)
DX: T80.211A Bloodstream infection due to central venous catheter, initial encounter (principal); J96.21 Acute and chronic respiratory failure with hypoxia; A41.52 Sepsis due to Pseudomonas; J69.0 Pneumonitis due to inhalation of food and vomit; G93.41 Metabolic encephalopathy; I13.2 Hypertensive heart and chronic kidney disease with heart failure and with stage 5 chronic kidney disease, or end stage renal disease; A04.72 Enterocolitis due to Clostridium difficile, not specified as recurrent; E44.0 Moderate protein-calorie malnutrition; L89.324 Pressure ulcer of left buttock, stage 4; L89.894 Pressure ulcer of other site, stage 4; L89.314 Pressure ulcer of right buttock, stage 4; L89.614 Pressure ulcer of right heel, stage 4; I95.3 Hypotension of hemodialysis; L89.621 Pressure ulcer of left heel, stage 1; N18.6 End stage renal disease; I50.9 Heart failure, unspecified; Y84.8 Other medical procedures as the cause of abnormal reaction of the patient, or of later complication, without mention of misadventure at the time of the procedure; Y92.129 Unspecified place in nursing home as the place of occurrence of the external cause; K21.9 Gastro-esophageal reflux disease without esophagitis; I69.398 Other sequelae of cerebral infarction; M89.8X9 Other specified disorders of bone, unspecified site; R13.10 Dysphagia, unspecified; R65.20 Severe sepsis without septic shock; M86.18 Other acute osteomyelitis, other site; E11.22 Type 2 diabetes mellitus with diabetic chronic kidney disease; E11.69 Type 2 diabetes mellitus with other specified complication; D68.59 Other primary thrombophilia; Z74.09 Other reduced mobility; E78.5 Hyperlipidemia, unspecified; D63.8 Anemia in other chronic diseases classified elsewhere; E88.09 Other disorders of plasma-protein metabolism, not elsewhere classified; Z74.01 Bed confinement status; Y95 Nosocomial condition; E83.52 Hypercalcemia; M62.3 Immobility syndrome (paraplegic); Z87.891 Personal history of nicotine dependence; Z88.0 Allergy status to penicillin; Z93.0 Tracheostomy status; Z93.1 Gastrostomy status; Z99.11 Dependence on respirator [ventilator] status; Z99.2 Dependence on renal dialysis; Z79.51 Long term (current) use of inhaled steroids; Z79.899 Other long term (current) drug therapy; L89.890 Pressure ulcer of other site, unstageable; T84.54XA Infection and inflammatory reaction due to internal left knee prosthesis, initial encounter; Y83.8 Other surgical procedures as the cause of abnormal reaction of the patient, or of later complication, without mention of misadventure at the time of the procedure
CPT/HCPCS: 31720; 36415; 71045-TC; 73564-TC; 74018; 80048-TC; 80053-TC; 80076-TC; 80170-TC; 80202-TC; 82803-TC; 82962-TC; 83605-TC; 83735-TC; 84100-TC; 84443-TC; 84484-TC; 85025-TC; 85730-TC; 86706; 86850-TC; 87040-TC; 87081-TC; 87186-TC; 87340; 90935-TC; 94002-TC; 94003-TC; 94760-TC; 94762-TC; 94799-TC; 99082-TC; A4216; A4223; A4349; A4623; A6253; A6403; A6407; A7526; C1750; C1769; G0378; J0885; J1580; J1644; J1650; J1956; J2185; J2470; J2997; J3370; J3480; J3490; J7030; J7050; J7060; P9016; P9047; Q9966